=== PATIENT | male | born 1960 | race Caucasian/White ===

== ENCOUNTER 2017-07-04 10:17 | Emergency (ER) | payer BC ==
[~2017-07-04] VITALS: Ht 177.8 cm; Wt 100.1 kg
[~2017-07-04 10:17] MED LIST: TRAM-10 PO
[2017-07-04 10:31] VITALS: TEMP 36.8; Ht 177.8 cm; Wt 100.1 kg
[2017-07-04 10:50] VITALS: O2SAT 98
[2017-07-04] MEDS ORDERED: ONDANSETRON INJ 2 MG/ML 2 ML VIAL IV STA (10:57)
[2017-07-04] MEDS ORDERED: SODIUM CHLORIDE 0.9% 1000ML 1,000 ML IV STA (10:57)
[2017-07-04] MEDS ORDERED: MoRPHine SULFATE 4 MG/ML 1 ML CARP\\VIAL IV STA (10:57)
[2017-07-04 11:19] LABS: BASO % 0.3 %; BASO ABS # 0.02 K/uL (0-0.2); COMPLETE YES; EOS % 1.5 %; IG% 0.2 %; LYMPH % 14.9 %; LYMPH ABS # 0.87 K/uL (1.2-3.4); MEAN CELL VOLUME 92.1 fL (80-100); MEAN CORPUSCULAR HEMOGLOBIN 33.3 pg (25-34); MEAN CORPUSCULAR HGB CONC 36.2 g/dl (32-36); MEAN PLATELET VOLUME 9.4 fL (7.4-10.4); MONO % 7.6 %; NEUT % 75.5 %; PLATELET COUNT 196 K/uL (130-400); RED BLOOD COUNT 4.56 M/uL (4.7-6.1); WHITE BLOOD COUNT 5.82 K/uL (4.8-10.8)
[2017-07-04 11:34] LABS: BUN/CREATININE RATIO 9.4 (10-20); CREATININE 1.5 mg/dl (0.60-1.40); POTASSIUM 3.9 mmol/L (3.5-5.1)
[2017-07-04] MEDS ORDERED: NAPR1TAB9 PO (12:05)
[2017-07-04] MEDS ORDERED: IMD/2 PO (12:05)
[2017-07-04 12:08] LABS: URINE APPEARANCE CLOUDY (CLEAR); URINE BILIRUBIN NEG (NEG); URINE COLOR DK YELLOW; URINE EPITHELIAL CELL AUTO 0-5 /lpf (0-5); URINE NITRITE NEG (NEG); URINE SPECIFIC GRAVITY 1.032 (1.000-1.030); UROBILINOGEN NEG (NEG)
[2017-07-04 12:19] LABS: MANUAL MICROSCOPIC REQUIRED? NO; REVIEW REQ? NO
[2017-07-04] MEDS ORDERED: OPTIRAY 320 IV PRN (13:15)
[2017-07-04 16:10] VITALS: BP 126/76; PULSE 56; O2SAT 99
--- NOTE | 2017-07-04 16:29 | DIAGNOSTIC IMAGING REPORT ---
CT OF THE ABDOMEN AND PELVIS WITH CONTRAST CLINICAL HISTORY: Left lower quadrant abdominal pain. COMPARISON STUDY: None. TECHNIQUE: Following IV administration of 94 mL of Optiray-320, axial images of the abdomen and pelvis were obtained from the lung bases to the proximal femurs. Images were reviewed in the axial, sagittal, and coronal planes. IV contrast was administered without complication. A dose lowering technique was utilized adhering to the principles of ALARA. Oral contrast was administered. CT DOSE: 830.82 mGy.cm FINDINGS: A 5 mm distal left ureteral calculus results in minimal left ureteral dilatation without hydronephrosis. Left nephrogram is slightly delayed and there is minimal left perinephric and periureteral infiltration. There is probable fatty infiltration of the liver. 1 cm lateral segment hepatic cyst is noted. Multiple subcentimeter hepatic lesions are too small to characterize. These are likely benign. The spleen, adrenal glands and pancreas are unremarkable. Fat-containing ventral and umbilical hernias are noted. There is evidence for prior sigmoid resection. No bowel obstruction is present. There are is left colon diverticulosis without evidence for acute diverticulitis. The appendix is not visualized. There is no lymphadenopathy or suspicious osseous lesion. IMPRESSION: 1. 5 mm minimally obstructing distal left ureteral calculus. Minimal asymmetric left ureteral dilatation without hydronephrosis. Slightly delayed left nephrogram with mild left perinephric infiltration. 2. Status post sigmoid resection. No bowel obstruction. Left colon diverticulosis without evidence for acute diverticulitis. 3. Containing umbilical and ventral hernias. Electronically signed by: Jovi Timmons M.D. 07/04/2017 4:28 PM Dictated Date/Time: 07/04/2017 4:20 PM
[2017-07-04] MEDS ORDERED: HYDR-5688 PO (16:48)
[2017-07-04] MEDS ORDERED: TAMS0.4C38 PO (16:48)
--- NOTE | 2017-07-04 17:13 | EMERGENCY ROOM VISIT NOTE ---
History First contact with patient: 10:36 Chief Complaint: BACK PAIN Stated Complaint: BACK/SIDE INTERNAL LOWER History of Present Illness The patient is a 57 year old white male who presents to the Emergency Room with complaints of left flank pain radiating around to his left lower abdomen and groin. Symptoms started last night. He states he just did not feel well yesterday. He did not eat much. This morning he awoke with more severe discomfort. He states he did eat earlier today but vomited. No fevers or chills. He states he did have 2 episodes of diarrhea yesterday. No prior history of kidney stones. He denies any difficulty urinating. No hematuria. No urgency or burning. There is a history of previous diverticulitis and colon resection with temporary colostomy and reversal. He states this feels somewhat similar. He points to the left side of the abdomen and his left flank as the areas of discomfort. Previous appendectomy. No right-sided discomfort. His accompanies him today. Review of Systems REVIEW OF SYSTEM: HEENT: No dizziness, visual problems, hearing loss, or tinnitus. There is no difficulty swallowing and no oral lesions are present. PULMONARY: No cough, shortness of breath, sputum production or hemoptysis. CARDIOVASCULAR: No chest pain, palpitations, shortness of breath or peripheral edema. GASTROINTESTINAL: No constipation. Positive diarrhea, nausea, vomiting, and abdominal pain. GENITOURINARY: No dysuria, frequency, urgency or nocturia. NEUROLOGIC: No weakness, muscle tenderness, epilepsy or history of neurological problems. MUSCULOSKELETAL: No history of joint tenderness/swelling. No history of arthritis or arthralgias. SKIN: No rashes or lesions. PSYCHIATRIC: No history of depression or mental illness. ENDOCRINE: No history of diabetes, thyroid disorders, or abnormal hair growth. Past Medical/Surgical History Previous surgeries: Appendectomy, bowel resection, colostomy reversal Medical history: Significant for previous diverticulitis Family History Noncontributory. Social History Smoking Status: Never Smoker Smokeless Tobacco Use: No Drug Use: none Marital Status: Housing Status: lives with family Occupation Status: employed Current/Historical Medications Scheduled Tamsulosin Hcl (Flomax), 1 CAP PO DAILY Scheduled PRN Hydrocodone/Acetaminophen 5MG/325MG (Cascade 5MG/325MG), 1-2 TABLET PO Q6H PRN for Pain Loperamide Hcl (Imodium), 2-4 MG PO UD PRN for GI Upset Naproxen (Aleve), 220-440 MG PO UD PRN for Pain Physical Exam Vital Signs Date Time Temp Pulse Resp B/P (MAP) Pulse Ox O2 Delivery O2 Flow Rate FiO2 07/04/17 16:10 56 20 126/76 99 Room Air 07/04/17 13:35 62 18 118/75 98 Room Air 07/04/17 11:19 57 18 132/91 98 Room Air 07/04/17 10:51 54 07/04/17 10:50 98 Room Air 07/04/17 10:31 36.8 56 18 132/85 99 Room Air Physical Exam Gen.: Well-developed, well-nourished, middle-aged white male, in obvious discomfort. No acute distress. Laying on a bed. Alert and oriented. Skin:Warm and dry with good turgor. No rashes or lesions. No ecchymosis or erythema. The patient is not diaphoretic. No abrasions. HEENT: Normocephalic atraumatic. Eyes PERRLA, EOMI. No conjunctiva or scleral injection. Oropharynx without erythema or exudate. oral mucosa moist. No lesions present. Heart: Heart RRR. No MGR. Peripheral pulses are 2+. Lungs: Lungs are clear to auscultation. No crackles rhonchi or wheezing. Good air movement. The patient is able to take a deep breath. Abdomen: Abdomen was inspected, auscultated, and palpated. Bowel sounds present x 4. Soft, left lower quadrant pain to palpation. No hepato- splenomegaly. No masses noted. No rebound. No pain over McBurney's point. Left-sided CVA tenderness. Musculoskeletal: Gross motor function of the upper and lower extremities is intact and unremarkable. Neurologic: Gross sensation is intact across the upper and lower extremities by soft touch. Medical Decision & Procedures ER Provider Diagnostic Interpretation: CT scan imaging of the abdomen and pelvis with IV and oral contrast was obtained. This was read by radiology as negative for diverticulitis. Positive for diverticulosis. No perforation. There is a 5.3 mm ureteral stone on the left side. Mild hydronephrosis. Laboratory Results 07/04/17 10:45 Red Blood Count 4.56, Mean Corpuscular Volume 92.1, Mean Corpuscular Hemoglobin 33.3, Mean Corpuscular Hemoglobin Concent 36.2, Mean Platelet Volume 9.4, Neutrophils (%) (Auto) 75.5, Lymphocytes (%) (Auto) 14.9, Monocytes (%) (Auto) 7.6, Eosinophils (%) (Auto) 1.5, Basophils (%) (Auto) 0.3, Neutrophils # (Auto) 4.39, Lymphocytes # (Auto) 0.87, Monocytes # (Auto) 0.44, Eosinophils # (Auto) 0.09, Basophils # (Auto) 0.02 07/04/17 10:45 Test 07/04/17 10:45 07/04/17 11:55 White Blood Count 5.82 K/uL (4.8-10.8) Red Blood Count 4.56 M/uL (4.7-6.1) Hemoglobin 15.2 g/dL (14.0-18.0) Hematocrit 42.0 % (42-52) Mean Corpuscular Volume 92.1 fL (80-100) Mean Corpuscular Hemoglobin 33.3 pg (25-34) Mean Corpuscular Hemoglobin Concent 36.2 g/dl (32-36) Platelet Count 196 K/uL (130-400) Mean Platelet Volume 9.4 fL (7.4-10.4) Neutrophils (%) (Auto) 75.5 % Lymphocytes (%) (Auto) 14.9 % Monocytes (%) (Auto) 7.6 % Eosinophils (%) (Auto) 1.5 % Basophils (%) (Auto) 0.3 % Neutrophils # (Auto) 4.39 K/uL (1.4-6.5) Lymphocytes # (Auto) 0.87 K/uL (1.2-3.4) Monocytes # (Auto) 0.44 K/uL (0.11-0.59) Eosinophils # (Auto) 0.09 K/uL (0-0.5) Basophils # (Auto) 0.02 K/uL (0-0.2) RDW Standard Deviation 44.0 fL (36.4-46.3) RDW Coefficient of Variation 13.2 % (11.5-14.5) Immature Granulocyte % (Auto) 0.2 % Immature Granulocyte # (Auto) 0.01 K/uL (0.00-0.02) Anion Gap 5.0 mmol/L (3-11) Est Creatinine Clear Calc Drug Dose 64.4 ml/min Estimated GFR () 59.0 Estimated GFR (Non- 50.9 BUN/Creatinine Ratio 9.4 (10-20) Calcium Level 9.0 mg/dl (8.5-10.1) Total Bilirubin 0.9 mg/dl (0.2-1) Aspartate Amino Transf (AST/SGOT) 19 U/L (15-37) Alanine Aminotransferase (ALT/SGPT) 31 U/L (12-78) Alkaline Phosphatase 76 U/L (45-117) Total Protein 7.4 gm/dl (6.4-8.2) Albumin 3.7 gm/dl (3.4-5.0) Globulin 3.7 gm/dl (2.5-4.0) Albumin/Globulin Ratio 1.0 (0.9-2) Urine Color DK YELLOW Urine Appearance CLOUDY (CLEAR) Urine pH 5.0 (4.5-7.5) Urine Specific [place] 1.032 (1.000-1.030) Urine Protein TRACE (NEG) Urine Glucose (UA) NEG (NEG) Urine Ketones 1+ (NEG) Urine Occult Blood NEG (NEG) Urine Nitrite NEG (NEG) Urine Bilirubin NEG (NEG) Urine Urobilinogen NEG (NEG) Urine Leukocyte Esterase NEG (NEG) Urine WBC (Auto) 1-5 /hpf (0-5) Urine RBC (Auto) 0-4 /hpf (0-4) Urine Hyaline Casts (Auto) 1-5 /lpf (0-5) Urine Epithelial Cells (Auto) 0-5 /lpf (0-5) Urine Bacteria (Auto) NEG (NEG) CBC, chem panel, and UA were obtained. UA is negative for blood and bacteria. 1+ ketones. CBC is unremarkable. Chem panel is also unremarkable. Medications Administered Medications (Trade) Dose Ordered Sig/Jovanny Route Start Time Stop Time Status Last Admin Dose Admin Sodium Chloride 1,000 ml @ 999 mls/hr Q1H1M STAT IV 07/04/17 10:57 07/04/17 11:57 DC 07/04/17 11:03 999 MLS/HR Morphine Sulfate (MoRPHine SULFATE INJ) 4 mg NOW STAT IV 07/04/17 10:57 8/19/17 10:59 DC 07/04/17 11:18 4 MG Ondansetron HCl (Zofran Inj) 4 mg NOW STAT IV 07/04/17 10:57 07/04/17 10:59 DC 07/04/17 11:17 4 MG 1 L normal sterile saline IV bolus, morphine 4 mg IV, Zofran 4 mg IV ED Course Patient was educated regarding today's findings. Conservative care measures were discussed. IV was established. Labs were obtained. UA was also obtained. Because there was no blood in the urine and his history of diverticulitis, CT of the abdomen and pelvis with IV and oral contrast was obtained. This was read by radiology. Ureteral stone was noted. No evidence for diverticulitis or perforation. He was given morphine 4 mg IV and Zofran 4 mg IV with improvement of his nausea and pain. He remained comfortable while in the ED. He was discharged on Flomax 0.4 mg daily 7 days or until he passes his stone. He was also given a prescription for Cascade 5 mg to be used for severe pain. He may use Tylenol and Motrin every 6 hours for mild discomfort. Maintain hydration. Strain the urine if desired. Follow up with his PCP or urologist if symptoms persist. Return to the ED for any acute worsening of symptoms or inability to void. Kidney stone handout was provided. Medical Decision Possibility of appendicitis, diverticulitis, bowel perforation, ureteral stone, UTI, bowel obstruction, and abdominal strain were considered among others. Medication Reconcilliation Current Medication List: was personally reviewed by [facility] Blood Pressure Screening Patient's blood pressure: Normal blood pressure Impression Primary Impression: Ureterolithiasis Additional Impression: Renal colic Departure Information Dispostion Home / Self-Care Prescriptions Hydrocodone/Acetaminophen 5MG/325MG (Cascade 5MG/325MG) Tab 1-2 TABLET PO Q6H Y for Pain, #15 TAB For Initial Treatment Prov: Watson Salazar,P.A. 07/04/17 Tamsulosin Hcl (FLOMAX) 0.4 Mg Cap 1 CAP PO DAILY for 7 Days, #7 CAP Prov: Watson Salazar,P.A. 07/04/17 Referrals Corwin Vazquez M.D. Forms HOME CARE DOCUMENTATION FORM, Kidney stone size in mm: 5 SPECIAL NARCOTICS INSTRUCTIONS, MOTRIN USE, RENAL COLIC (KIDNEY STONES), TYLENOL USE, IMPORTANT VISIT INFORMATION Patient Instructions Kidney Stones - [facility], [facility] Additional Instructions Flomax 1 daily 7 days or until you pass the stone Cascade one to 2 tablets every 6 hours as needed for severe pain-no driving Tylenol and Motrin every 6 hours as needed for mild discomfort Return to the ED for any acute worsening of symptoms or inability to void Follow-up with your PCP or urologist as needed Problem Qualifiers
== END 2017-07-04 16:59 | disposition home or self-care (01) ==
LOC: C.EDB 10:19 → C.EDA 16:59
DX: N20.1 Calculus of ureter (principal); N23 Unspecified renal colic

== ENCOUNTER 2023-02-09 05:17 | Observation (INO) ==
--- NOTE | 2023-01-16 10:13 | PAT Medication Instructions ---
Medication Instructions Date of Service January 16, 2023 Home Medications Medication Instructions Recorded celecoxib 100 mg capsule (Celebrex) 100 mg PO BID PRN pain #60 caps 12/01/22 zolpidem 5 mg tablet 5 mg PO HS PRN celecoxib 100 mg capsule (Celebrex) 100 mg PO BID PRN ibuprofen 200 mg tablet 400 - 600 mg PO Q6H PRN naproxen sodium 220 mg tablet 220 mg PO BID PRN ASK your surgeon for instructions celecoxib 100 mg capsule (Celebrex) 100 mg PO BID PRN ibuprofen 200 mg tablet 400 - 600 mg PO Q6H PRN naproxen sodium 220 mg tablet 220 mg PO BID PRN Take evening before surgery zolpidem 5 mg tablet 5 mg PO HS PRN(if needed) Other Notes NOTHING TO EAT OR DRINK AFTER MIDNIGHT. If you have any questions please call us at [phone] or [phone] or [phone] or [phone]
--- NOTE | 2023-01-22 14:13 | Anesthesiology Consultation ---
Date of Service January 22, 2023 Assessment & Plan (1) Encounter for pre-operative examination: - COVID screening: Per assessment on 01/22: No known COVID-19 positive contacts or current COVID-19 related symptoms. Travel screen negative. Patient vaccinated. At surgeon discretion if preop Covid testing being done. - Outpatient joint assessment: Pt currently scheduled for inpatient pathway. If surgeon requests review for outpatient joint pathway, patient is an acceptable candidate for outpatient joint program from anesthesia standpoint pending surgeon's office assessment that patient is motivated, has good support and completes Same Day Joint Program preop requirements. Chart Review Chart Review: Acceptable Risk for Surgery and Patient seen in Pre Admission Testing Teaching & Discussion Pre-Anesthesia Teaching/Discussion Notes: Instructed NPO after midnight before surgery,except medications with 15 cc of water. Medication instructions provided according to the PAT guidelines. History Surgery Operation Date: 02/09/23 12:30 Proposed Procedures p Left Unicompartmental Vs - Star Navarro MD s Total Knee Arthroplasty - Star Navarro MD Height/Weight Height: 5 ft 10 in Weight: 112.9 kg Allergies Allergy/AdvReac Type Severity Reaction Status Date / Time pollen extracts Allergy Mild sneezing, Verified 01/19/23 11:52 watery eyes amoxicillin AdvReac Mild GI upset Verified 01/19/23 11:52 Dust Allergy Mild sneezing, Uncoded 01/19/23 11:52 watery eyes Medications Home Medications Medication Instructions Recorded Confirmed Last Taken zolpidem 5 mg tablet 5 mg PO HS PRN Sleep 04/17/21 01/16/23 Unknown celecoxib 100 mg capsule (Celebrex) 100 mg PO BID PRN pain #60 caps 12/01/22 01/16/23 Unknown ibuprofen 200 mg tablet 400 - 600 mg PO Q6H PRN Pain 01/16/23 01/16/23 Unknown naproxen sodium 220 mg tablet 220 mg PO BID PRN Pain 01/16/23 01/16/23 Unknown Past Medical History Medical History Diverticulitis 2003 History of COVID-19 2019- mild symptoms, resolved Kidney stones Hx Obesity Osteoarthritis Sleep apnea CPAP (compliant) Exercise / Class Metabolic Activity II 4-5 Yardwork/Stairs/Walk up hill (one FS (no CP, no SOB)) Past Family History Family History Other No family history of adverse response to anesthesia Past Surgical History Surgical History History of appendectomy History of carpal tunnel release of both wrists History of colonoscopy History of colostomy 2003- subsequent reversal History of colostomy reversal History of resection of large bowel 2003 History of sinus surgery History of tooth extraction Past Anesthesia History No Hx of Anesthesia Complications and No Family Hx of Anesthesia Complications History of PONV No Hx of PONV and Hx of Motion Sickness Social History Smoking Status: Former smoker Do You Dip or Chew Tobacco: No Smoking End Date: Quit 07/19/2004 Hx Alcohol Use: Yes Alcohol type: beer alcohol intake frequency: 3 or more drinks per day (2-3 beers/day) Hx Substance Use: No substance use type: does not use Review of Systems Patient denies chest pain, shortness of breath, dyspnea on exertion, fever, chills, cough, wheezing, palpitations. Physical Exam Vital Signs VITALS BP 127/73 P 85 TEMP 98.1 SP02 96%RA RESP 16 PHYSICAL Full cervical extension range of motion. Full TMJ range of motion. TMD 4 finger breaths Mallampati Score 4 (small oral opening) Dentition: several missing (sides/molars), upcoming dental extractions (for infection/broken) prior to surgery- patient advised to make surgeon aware* Lungs: clear throughout to auscultation Cardiac: regular rate and rhythm, no murmurs noted Spine: normal Carotid arteries: negative bruit Extremities: no edema Lab Results Anesthesia Preop Results Results Anesthesia Widget: WBC 6.08 K/ul (4.8-10.8) 01/22/23 Hgb 14.3 g/dl (14.0-18.0) 01/22/23 Hct 40.3 % (42.0-52.0) L 01/22/23 Plt 226 K/uL (130-400) 01/22/23 Na 141 mmol/L (136-145) 01/22/23 K 4.3 mmol/L (3.5-5.1) 01/22/23 Cl 110 mmol/L (98-107) H 01/22/23 CO2 27 mmol/L (21-32) 01/22/23 BUN 14 mg/dl (6-23) 01/22/23 Creat 1.16 mg/dl (0.6-1.4) 01/22/23 Glucose Level 99 mg/dl (70-99(Fasting)) 01/22/23 PT 10.4 Seconds (9.0-12.0) 01/22/23 PTT 24.7 Seconds (21.0-31.0) 01/22/23 INR 1.0 (0.9-1.1) 01/22/23 Blood Type O Negative 01/22/23 Antibody Screen NEGATIVE 01/22/23 Testing Electrocardiogram Date: 01/22/23 NSR at 83bpm. LAFB. Chest X-Ray Date: 01/22/23 FINDINGS: Cardiomediastinal and hilar silhouettes are within normal limits. Mild hyperinflation with diaphragmatic flattening. No pneumothorax, pleural effusion, airspace consolidation or pulmonary edema. Bones appear grossly intact. IMPRESSION: No acute process. COVID-19 Risk Screen Screening Information COVID-19 Screen Date: 01/22/23 Exposure 21 Days Family/Household +COVID Last 21 Days: No Exposure 10 Days Any COVID Exposure Last 10 Days: No Symptoms Last 10 Days Experienced COVID Sx Last 10 Days: No + COVID 0-90 Days COVID + in Last 0-90 Days: No
[2023-02-09] MEDS ORDERED: TRANEXAMIC ACID 1,000 MG **IV Intra-op IV SCH (06:00)
[2023-02-09] MEDS ORDERED: LR 500ML BOLUS, THEN 15ML/HR IV SCH (06:00)
[2023-02-09] MEDS ORDERED: BUPIVACAINE LIPOSOME/PF 266 MG, BUPIVACAINE/EPINEPHRINE 50 ML, SODIUM CHLORIDE 0.9% PF ... INFIL SCH (06:00)
[2023-02-09] MEDS ORDERED: FAMOTIDINE 20 MG TAB PO SCH (06:00)
[2023-02-09] MEDS ORDERED: METOCLOPRAMIDE HCL 10 MG TABLET PO SCH (06:00)
[2023-02-09] MEDS ORDERED: Scopolamine 1 MG TDSY TD SCH (06:00)
[2023-02-09] MEDS ORDERED: ACETAMINOPHEN 500 MG TAB PO SCH (06:00)
[2023-02-09] MEDS ORDERED: CeleBREX 200 MG CAP PO SCH (06:00)
[2023-02-09] MEDS ORDERED: ceFAZolin 2000MG 2,000 MG/15 ML SYR IV SCH (06:00)
[2023-02-09] MEDS ORDERED: LR 60ML/HR IV SCH (06:00)
[2023-02-09] MEDS ORDERED: BUPIVACAINE 0.5 % 5 MG/1 ML PF 10ML VIAL ONE (06:26)
[2023-02-09] MEDS ORDERED: EPINEPHrine INJ 1 MG/ML AMP ONE (06:26)
[2023-02-09] MEDS ORDERED: ROPIVACAINE 0.5% 5 MG/ML 30 ML VIAL ONE (06:26)
[2023-02-09] MEDS ORDERED: MIDAZOLAM HCL 1 MG/ML 2ML VIAL ONE ×2 (06:30→07:13)
[2023-02-09] MEDS ORDERED: fentaNYL citrate PF 100 MCG/2 ML VIAL ONE (06:30)
[2023-02-09] MEDS ORDERED: BUPIVACAINE/EPINEPHRINE 0.25% 1:200,000 30 ML VIAL ONE (06:44)
[2023-02-09] MEDS ORDERED: SODIUM CHLORIDE 0.9% PF 50 ML VIAL ONE (06:44)
[2023-02-09] MEDS ORDERED: BUPIVACAINE LIPOSOME 1.3% 266 MG/20 ML VIAL ONE (06:44)
--- NOTE | 2023-02-09 06:51 | History & Physical Bridge Note ---
Date of Service February 09, 2023 History & Physical Bridge Note I have examined the patient, reviewed the History & Physical and in the interval since the performance of the History & Physical I have noted the following changes of clinical significance: no changes noted
[2023-02-09] MEDS ORDERED: PROPOFOL IV EMULSION 10 MG/ML 20 ML VIAL IV ONE (07:13)
[2023-02-09] MEDS ORDERED: PHENYLEPHRINE HCL 10 MG/ML VIAL ONE (07:14)
[2023-02-09] MEDS ORDERED: ePHEDrine sulfate 50 MG/ML AMP ONE (07:14)
[2023-02-09] MEDS ORDERED: fentaNYL citrate PF 100 MCG/2 ML VIAL IV PRN (08:14)
[2023-02-09] MEDS ORDERED: NALOXONE HCL 0.4 MG/1 ML VIAL/CARP IV PRN ×2 (08:14→09:59)
[2023-02-09] MEDS ORDERED: HYDROmorphone INJ 1 MG/ML SYRINGE IV PRN (08:14)
[2023-02-09] MEDS ORDERED: ATROPINE SULFATE 0.1 MG/ML 10ML SYR IV PRN (08:14)
[2023-02-09] MEDS ORDERED: ONDANSETRON INJ 2 MG/ML 2 ML VIAL IV PRN ×2 (08:14→09:59)
[2023-02-09] MEDS ORDERED: ePHEDrine sulfate 50 MG/ML AMP IV PRN (08:14)
[2023-02-09] MEDS ORDERED: FLUMAZENIL 0.1 MG/1 ML 10 ML VIAL IV PRN (08:14)
[2023-02-09] MEDS ORDERED: PROMETHAZINE HCL 12.5 MG in SODIUM CHLORIDE 0.9% 50 ML IV PRN (08:14)
[2023-02-09] MEDS ORDERED: DEXAMETHASONE SOD INJ 4 MG/ML VIAL ONE (08:39)
[2023-02-09] MEDS ORDERED: KETOROLAC 30 MG/ML VIAL ONE (08:39)
--- NOTE | 2023-02-09 09:02 | Operative Report ---
PG Post Operative Report Pre & Post Diagnosis Operation Date: 02/09/23 07:00 Pre-Op Diagnosis: Left Knee medial compartment DJD Post-Op Diagnosis: Left Knee medial compartment DJD I identified the patient and participated in the time-out.: Yes Procedure Operation Date: 02/09/23 07:00 Actual Procedures p Left Unicompartmental Knee Arthroplasty(Left) - Star Navarro MD Surgeon Star Navarro MD Improvement Specialist Bryan Costa PA-C Estimated Blood Loss 25 Findings Consistent with Post-Op Diagnosis Operative findings were advanced left medial compartment DJD. He had full- thickness cartilage loss of both the medial femoral condyle and medial tibial plateau. The lateral compartment and patellofemoral carpal compartment looked quite pristine. He had a very large knee joint effusion. Specimens Left knee sent for pathology Anesthesia Type Spinal MAC Complications none Disposition Accompanied Patient To Recovery: No Indications Patient is 63-year-old fairly active gentleman has had about a year history of increasing left knee pain discomfort and recurrent swelling is got markedly worse over the past year. X-rays show progressive loss of his medial joint space. MRI showed fairly isolated medial compartment arthritis with a bone marrow edema in the medial femoral condyle medial tibial plateau with a degenerative medial meniscus tear. Patient failed all conservative measures. He elected proceed with left partial knee replacement. Description of Procedure Operative implants consist of: 1. Biomet [place] medium medial femoral component. 2. Biomet [place] left medial size C tibial tray. 3. 4 mm mobile-bearing polyethylene insert. The patient was taken the operating, identified, placed on the operating table supine position protectors were properly padded. IV antibiotics tried by anesthesia team. A spinal anesthetic and abductor canal block had provided in the holding area. Mishra catheter was placed in sterile fashion. Left atrium was then placed in the left lower extremities and prepped and draped in usual sterile fashion. The left leg was elevated exsanguinated with use of an Esmarch nd the tourniquet was placed at 300 mmHg. An anterior approach left knee was then performed to longitudinal incision extending from the superior medial pole of the patella to just medial to the tibial tubercle. Sharp dissection was carried through subcutaneous tissue down the extensor mechanism. A medial parapatellar arthrotomy incision was made. The fat pad was resected. Some slight subperiosteal dissection was carried out medially taking great care to protect the MCL. I then examined the knee. The ACL was intact. There is extensive disease of the medial compartment. The lateral and patellofemoral compartments look quite pristine. We elected proceed with a left partial knee replacement. The distal femur was sized to a size medium femoral component. The medium spoon was placed in the external tibial alignment jig was then placed in the interface the tibia and attached to the medium splint with a 4G clamp. Guide was pinned in place. The proximal tibial cut was made. The tibia sized to a size C. Attention drawn the femur. The distal femur examined the sharp drill. Intramedullary guide was placed. A medium femoral component was placed and attached to the intramedullary evy. Holes were drilled for the femoral component. The posterior cutting guide was placed and the posterior cut was made. The 0 spigot was used milled the distal femur and distal femur was milled. I then resected the medial meniscus. We then trialed the knee and the 4 feeler gauge fit appropriately in flexion and the 2 in extension. Therefore we used 2 spigot and milled the distal femur further. We trialed the knee and it was well balanced in flexion extension with a 4 insert. We elect to place these implants. The posterior osteophyte cutting guide was placed and the posterior osteophyte was removed. The anterior milling device was used to milled the anterior femur for the femoral component. The tibial tray was pinned in place. The toothbrush blade was used to create the keel for the tibial tray. The inserts were then trialed again and the 4 mobile-bearing trial left fit appropriately. We elect to use these implants. All trial implants were removed. I irrigated the wound extensively. We did inject locally with total of 100 cc of combination of 20 cc of Exparel, 30 cc normal saline, 50 cc of quarter percent Marcaine with epinephrine. Patient did receive 1 g tranexamic acid. Double batch of [place] G cement was mixed. A size left medial size C tibial tray was cemented in place followed by a medium femoral component. All extraneous cement was removed. The knee was brought out into 30 degrees of full extension with the a [address] Once the cement hardened a final cement check was then performed we trialed the knee 1 more time and the 4 insert fit appropriately. A permanent 4 insert was placed. We then irrigated the wound extensively. The tourniquet was let down for total tourniquet time was 63 minutes. Hemostasis assured with electrocautery. Extensor mechanism then closed with #1 Vicryl suture in a [id number] fashion. Extension excellent check found be intact the subcutaneous tissue then closed with 2 Dexon suture in a buried interrupted fashion skin was closed skin librado. Leg was then cleaned and dried a sterile dressing with Xeroform, 4 x 4's, sterile ABD pad, sterile cast padding, Bib bandage were applied. Patient then transferred to the recovery room in stable condition. Patient tolerated the procedure well and there were no complications. Bryan Costa, my physician assistant field hockey coach, was present for the entire procedure. His assistance was essential and required for appropriate patient positioning, prepping and draping, surgical exposure, performing the technical details of the operation, placement the implants, closure of the wound, and placement of the sterile bandage. I attest to the content of the Intraoperative Record and any orders documented therein. Any exceptions are noted below.
--- NOTE | 2023-02-09 09:24 | Anesthesiology Progress Note ---
Date of Service February 09, 2023 Anesthesia Post Procedure Vital Signs Vital Signs: Temp Pulse Pulse Resp BP Pulse Ox O2 Del Method 02/09/23 09:10 68 16 128/67 98 Room Air 02/09/23 09:00 67 14 115/66 99 Room Air 02/09/23 08:54 36 C L 73 14 119/61 98 Room Air 02/09/23 05:35 36.5 C 86 20 155/76 H 97 Room Air Transfer of Care Handoff Completed per policy Notes Mental Status: alert / awake / arousable Patient Amnestic to Procedure: Yes Nausea / Vomiting: adequately controlled Pain: adequately controlled Airway Patency, RR, SpO2: stable & adequate BP & HR: stable & adequate Hydration State: stable & adequate Neuraxial Anesthesia: was administered and sensory block is resolving Anesthetic Complications: no major complications apparent
--- NOTE | 2023-02-09 09:35 | XRay Report ---
TWO VIEWS LEFT KNEE CLINICAL HISTORY: Postoperative examination. FINDINGS: AP and crosstable lateral portable views of the left knee are obtained. A hemiarthroplasty in the medial compartment of the left knee is in near anatomic alignment. No acute fracture is seen. There are expected postoperative changes around the knee including skin clips, soft tissue edema, an d subcutaneous gas. IMPRESSION: Expected postoperative changes status post hemiarthroplasty of the left knee. No acute fr acture is seen. ACT 112: Negative or not required by law. Electronically signed by: Fazal Hernandez M.D. 02/09/2023 9:34 AM
[2023-02-09] MEDS ORDERED: METOCLOPRAMIDE HCL INJ 5 MG/ML 2 ML VIAL IV PRN (09:59)
[2023-02-09] MEDS ORDERED: HYDROmorphone INJ 0.5 MG/0.5 ML SYR IV PRN (09:59)
[2023-02-09] MEDS ORDERED: ALUMINUM/MAGNESIUM SUSP 30 ML UDC PO PRN (09:59)
[2023-02-09] MEDS ORDERED: diphenhydrAMINE Capsule 25 MG CAP PO PRN (09:59)
[2023-02-09] MEDS ORDERED: ZOLPIDEM TARTRATE 5 MG TAB PO PRN (09:59)
[2023-02-09] MEDS ORDERED: bisacodyL 10 MG SUPP PR PRN (09:59)
[2023-02-09] MEDS ORDERED: MAGNESIUM HYDROXIDE SUSP 30 ML UDC PO PRN (09:59)
[2023-02-09] MEDS: SODIUM CHLORIDE 0.9% 1000ML 1,000 ML IV SCH ×2 (10:37→22:28)
[2023-02-09] MEDS: DOCUSATE SODIUM 100 MG CAP PO SCH ×2 (10:52→21:27)
[2023-02-09] MEDS: ASPIRIN 81 MG ECTAB PO SCH ×2 (10:52→21:27)
[2023-02-09] MEDS: MULTIVITAMIN TAB PO SCH (10:53)
[2023-02-09] MEDS: TAMSULOSIN HCL 0.4 MG CAP PO SCH (10:53)
[2023-02-09] MEDS: DOCUSATE SODIUM/SENNA 50/8.6MG TAB PO SCH ×2 (10:53→21:29)
[2023-02-09] MEDS: KETOROLAC 30 MG/ML VIAL IV SCH ×3 (10:53→21:26)
[2023-02-09] MEDS: ACETAMINOPHEN 500 MG TAB PO SCH ×2 (13:15→21:28)
--- NOTE | 2023-02-09 14:11 | Progress Notes ---
DATE OF SERVICE: 02/09/2023. SUBJECTIVE: A 63-year-old gentleman postoperative from a left partial knee replacement. He is doing well. Not really having much pain at all yet. No chest pain or shortness of breath. Not feeling d nubia or lightheaded. OBJECTIVE: VITAL SIGNS: Temperature 36.6. Vital signs are stable. GENERAL: Shows a pleasant middle-aged male. He is sitting up in bed and looks quite comfortable. LUNGS: Clear to auscultation. HEART: Regular rate and rhythm. ABDOMEN: Soft, nontender, nondistended. EXTREMITIES: Grossly neurovascularly intact except as follows. Examination of the left leg reveals the dressing to be clean, dry and intact. Leg is well aligned. He can dorsiflex and plantarflex his foot appropriately. He is neurologically intact. X-RAYS: X-rays of the left knee from recovery room were reviewed. It shows a left partial knee repl acement. Components looked to be in good position. No signs of problems. ASSESSMENT: A 63-year-old gentleman postoperative from a left partial knee replacement, doing well. Pain controlled. He is neurologically intact. PLAN: 1. DVT prophylaxis includes thigh-high TEDs, SCDs, and aspirin twice a day. 2. PT/OT, weight bear as tolerated. Left total knee protocol. 3. Pain control, doing okay with current pain regimen. 4. IV antibiotics x24 hours. 5. Disposition: Plan to discharge to home with some home health once adequately recovered and medic ally stable. Job ID: [id number]
[2023-02-09] MEDS: ceFAZolin 2000MG 2,000 MG/15 ML SYR IV SCH ×2 (14:56→23:01)
[2023-02-09] MEDS ORDERED: TRANEXAMIC ACID / 0.7% NACL 1,000 MG/100 ML BAG IV SCH (15:00)
[2023-02-09] MEDS: Scopolamine CHECK PATCH PLACEMENT SCH (15:32)
[2023-02-09] MEDS: oxyCODONE HCL IR 5 MG TAB (IMMEDIATE RELEASE) PO PRN (19:39)
[2023-02-09] MEDS ORDERED: SENNA 8.6 MG TAB PO SCH (21:00)
[2023-02-10] MEDS: Scopolamine CHECK PATCH PLACEMENT SCH ×2 (01:12→08:04)
[2023-02-10] MEDS: KETOROLAC 30 MG/ML VIAL IV SCH ×2 (05:17→12:02)
[2023-02-10] MEDS: ACETAMINOPHEN 500 MG TAB PO SCH ×2 (05:17→13:23)
[2023-02-10] MEDS: SODIUM CHLORIDE 0.9% 1000ML 1,000 ML IV SCH (06:04)
[2023-02-10] MEDS: MULTIVITAMIN TAB PO SCH (08:03)
[2023-02-10] MEDS: ASPIRIN 81 MG ECTAB PO SCH (08:04)
[2023-02-10] MEDS: DOCUSATE SODIUM 100 MG CAP PO SCH (08:04)
[2023-02-10] MEDS: TAMSULOSIN HCL 0.4 MG CAP PO SCH (08:04)
[2023-02-10] MEDS: DOCUSATE SODIUM/SENNA 50/8.6MG TAB PO SCH (08:04)
[2023-02-10] MEDS: oxyCODONE HCL IR 5 MG TAB (IMMEDIATE RELEASE) PO PRN ×2 (08:08→14:12)
--- NOTE | 2023-02-10 14:56 | Progress Notes ---
DATE OF SERVICE: 02/10/2023 SUBJECTIVE: A 63-year-old gentleman postoperative day 1 from a left partial knee replacement. He is doing pretty well. Pain is very manageable. No chest pain or shortness of breath. Not feeling diz zy or lightheaded. Therapy went well. He is hoping to go home. OBJECTIVE: VITAL SIGNS: Temperature is 37.1. Vital signs are stable. PHYSICAL EXAMINATION: GENERAL: Physical examination shows a pleasant middle-aged male. He is sitting up in bed eating rachael ch and talking to his and looks comfortable. EXTREMITIES: Examination of the left leg reveals the dressing to be clean, dry, and intact. He can dorsiflex and plantarflex his foot appropriately. He can do a straight leg raise. LABORATORY DATA: None. ASSESSMENT: A 63-year-old gentleman postoperative day 1 from a left partial knee replacement, doing well. His pain is controlled. Therapy went well. He is hoping to go home. PLAN: 1. DVT prophylaxis to include thigh-high TEDs, SCDs, and aspirin twice a day. 2. PT, OT, and weightbear as tolerated. Left total knee protocol. 3. Pain control, doing okay with current pain regimen. 4. Disposition: Plan to discharge him home with some home health today. Job ID: [id number]
--- NOTE | 2023-02-13 07:40 | Discharge Summary ---
Date of Service February 13, 2023 Discharge Data Procedures Performed Operation Date: 02/09/23 07:00 Actual Procedures p Left Unicompartmental Knee Arthroplasty(Left) - Star Navarro MD Hospital Course (1) Status post left partial knee replacement: This is a 63 year old patient admitted on 02/09/23 and underwent partial knee replacement. He tolerated the procedure well and there were no complications. Transferred to the PACU post op and later to the orthopedic floor for further care. He was given ancef for antibiotic prophylaxis. He was also given LOIS stockings, SCDs, and aspirin for DVT prophylaxis. Hemoglobin, hematocrit, and vital signs were monitored during his hospital stay and remained stable. Did not require any blood transfusions. There were no complications during his hospital stay. By post op day #1 the patient was tolerating a regular diet, pain was reasonably controlled with oral pain medicine, and he was participating in physical therapy. On post op day #1 the patient was discharged home and set up with home health care. He was given printed discharge instructions including prescriptions for extra strength tylenol, aspirin, ketorolac, zofran, senokot, flomax, and oxycodone. Continue physical therapy, weight bearing as tolerated. Continue LOIS stockings. Follow up approximately 2 weeks post op or sooner if there are problems or concerns. Coding Level of Care Code None Diagnoses Status post left partial knee replacement Z96.652
== END 2023-02-10 14:47 | disposition home health service (06) ==
LOC: 3E 05:17 → ASU 05:17

== ENCOUNTER 2024-02-02 08:49 | Observation (INO) ==
--- NOTE | 2023-12-31 13:16 | PAT Medication Instructions ---
Medication Instructions Date of Service December 31, 2023 Home Medications zolpidem 5 mg tablet 5 mg PO HS PRN Sleep ibuprofen 200 mg tablet 400 mg PO DAILY PRN Pain ASK your surgeon for instructions ibuprofen 200 mg tablet 400 mg PO DAILY PRN Pain Take evening before surgery zolpidem 5 mg tablet 5 mg PO HS PRN Sleep (if needed) OTHERWISE NOTHING TO EAT OR DRINK AFTER MIDNIGHT Other Notes If you have any questions please call us at [phone] or [phone] or [phone] or [phone]
--- NOTE | 2024-01-08 10:44 | Anesthesiology Consultation ---
Date of Service January 08, 2024 Assessment & Plan (1) Encounter for pre-operative examination: - abnormal CXR: "Questionable 1 cm nodular density within the right upper lobe. This is likely due to the overlapping rib. However, follow-up chest CT recommended for confirmation." Continuity of care document and PAT testing faxed to [facility] PCP. Message left requesting return call for patient 01/08/24. I spoke with patient 01/11/24 who verbalized understanding of above and states he will follow-up with PCP-denied questions or concerns. Surgeon's office made aware. - Outpatient joint assessment: Patient is currently scheduled for inpatient pathway. If re-evaluated and patient/surgeon requests outpatient pathway, patient is acceptable candidate for outpatient joint program from anesthesia standpoint pending surgeon's office assessment of pt motivation/supp ort/completion of same day joint program preop requirements. Chart Review Chart Review: Acceptable Risk for Surgery and Patient seen in Pre Admission Testing Teaching & Discussion Pre-Anesthesia Teaching/Discussion Notes: Instructed NPO after midnight before surgery, except medications with 15 cc of water. Medication instructions provided according to the PAT guidelines. History Surgery Operation Date: 02/02/24 08:50 Proposed Procedures p Right Total Hip Arthroplasty - Star Navarro MD Height/Weight Height: 5 ft 10 in Weight: 110.5 kg Allergies Allergy/AdvReac Type Severity Reaction Status Date / Time pollen extracts Allergy Mild Sneezing, Verified 01/07/24 12:19 watery eyes amoxicillin AdvReac Mild GI upset Verified 12/30/23 14:39 Dust Allergy Mild Sneezing, Uncoded 01/07/24 12:19 watery eyes Medications Home Medications Medication Instructions Recorded Confirmed Last Taken zolpidem 5 mg tablet 5 mg PO HS PRN Sleep 04/17/21 12/30/23 05/21/23 ibuprofen 200 mg tablet 400 mg PO DAILY PRN Pain 05/22/23 12/30/23 05/21/23 Past Medical History Medical History (Updated 01/08/24 @ 10:49 by Iva Dupree PA-C) Diverticulitis 2003 History of COVID-2019- mild symptoms, denies hospitalization, resolved History of kidney stones passed on own Obesity Sleep apnea CPAP (compliant) Patient denies h/o stroke, seizures, heart attack, heart failure, DM, HTN, blood clots/DVTs or blood transfusions. Exercise / Class Metabolic Activity II 4-5 Yardwork/Stairs/Walk up hill (denies chest discomfort or shortness of breath with 1 FOS) Past Family History Family History Other No family history of adverse response to anesthesia Past Surgical History Surgical History History of appendectomy History of carpal tunnel release of both wrists History of colonoscopy History of colostomy 2003- subsequent reversal History of colostomy reversal History of partial knee replacement Left unicompartment knee arthroplasty (02/09/2023): SAB (x2 attempts), L3-4 + regional at [facility] History of resection of large bowel 2003 History of sinus surgery History of tooth extraction Past Anesthesia History No Hx of Anesthesia Complications, No Family Hx of Anesthesia Complications and Other (daughter had bad experience with many attempts at neuraxial anesthesia, otherwise no FHx anesthesia complications) History of PONV No Hx of PONV and Hx of Motion Sickness Social History Smoking Status: Never smoker Do You Dip or Chew Tobacco: No Hx Alcohol Use: Yes Alcohol type: beer alcohol intake frequency: a few times a week Hx Substance Use: No substance use type: does not use Review of Systems Patient denies chest pain, shortness of breath, dyspnea on exertion, reflux, fever, chills, cough, wheezing, or palpitations. Physical Exam Vital Signs Vitals BP 121/76 P 63 TEMP 98.2 SP02 94% on RA RESP 18 Physical Patient resting comfortably in chair in no acute distress, alert and oriented, responding appropriately throughout visit Full cervical extension range of motion without pain TMD 3.5 finger breadths Mallampati Score 2 Dentition: intact, denies chipped or loose teeth, caps/crowns, implants or bridges Lungs: normal respiratory effort. Good air movement, clear throughout to auscultation, no adventitious breath sounds Cardiac: regular rate and rhythm, no murmurs noted Carotid arteries: negative bruit bilat Lab Results Anesthesia Preop Results Results Anesthesia Widget: WBC 6.83 K/ul (4.8-10.8) 01/08/24 Hgb 14.6 g/dl (14.0-18.0) 01/08/24 Hct 42.0 % (42.0-52.0) 01/08/24 Plt 204 K/uL (130-400) 01/08/24 Na 136 mmol/L (136-145) 01/08/24 K 4.3 mmol/L (3.5-5.1) 01/08/24 Cl 104 mmol/L (98-107) 01/08/24 CO2 25 mmol/L (21-32) 01/08/24 BUN 14 mg/dl (6-23) 01/08/24 Creat 1.14 mg/dl (0.6-1.4) 01/08/24 Glucose Level 102 mg/dl (70-99(Fasting)) H 01/08/24 PT 10.5 Seconds (9.0-12.0) 01/08/24 PTT 26 Seconds (21-31) 01/08/24 INR 1.0 (0.9-1.1) 01/08/24 Blood Type O Negative 01/08/24 Antibody Screen NEGATIVE 01/08/24 Testing Electrocardiogram Date: 05/22/23 NSR, rate 95 bpm Left axis deviation Chest X-Ray Date: 01/08/24 1. No acute process within the chest. 2. Questionable 1 cm nodular density within the right upper lobe. This is likely due to the overlapping rib. However, follow-up chest CT recommended for confirmation. 3. This report was called/faxed to the referring physician's office following dictation.
[~2024-02-02 08:49] MED LIST changes: +BUPIVACAINE 0.5 % 5 MG/1 ML PF 10ML VIAL ONE; -TRAM-10 PO
--- NOTE | 2024-02-02 09:00 | History & Physical Bridge Note ---
Date of Service February 02, 2024 History & Physical Bridge Note I have examined the patient, reviewed the History & Physical and in the interval since the performance of the History & Physical I have noted the following changes of clinical significance: no changes noted
[2024-02-02] MEDS ORDERED: PROPOFOL IV EMULSION 10 MG/ML 20 ML VIAL IV ONE (09:41)
[2024-02-02] MEDS ORDERED: MIDAZOLAM HCL 1 MG/ML 2ML VIAL ONE (09:41)
[2024-02-02] MEDS ORDERED: ONDANSETRON INJ 2 MG/ML 2 ML VIAL ONE (09:41)
[2024-02-02] MEDS ORDERED: fentaNYL citrate PF 100 MCG/2 ML VIAL ONE (09:41)
[2024-02-02] MEDS: ACETAMINOPHEN 500 MG TAB PO SCH ×2 (10:04→15:35)
[2024-02-02] MEDS: LR 500ML BOLUS, THEN 15ML/HR IV SCH (10:04)
[2024-02-02] MEDS: CeleBREX 200 MG CAP PO SCH (10:05)
[2024-02-02] MEDS: FAMOTIDINE 20 MG TAB PO SCH (10:05)
[2024-02-02] MEDS: dexAMETHasone**PF** 10 MG/ML VIAL IV SCH (10:06)
[2024-02-02] MEDS: Scopolamine 1 MG TDSY TD SCH (10:06)
[2024-02-02] MEDS: METOCLOPRAMIDE HCL 10 MG TABLET PO SCH (10:11)
[2024-02-02] MEDS: LR 60ML/HR IV SCH (10:11)
[2024-02-02] MEDS ORDERED: ONDANSETRON INJ 2 MG/ML 2 ML VIAL IV PRN ×2 (10:51→14:39)
[2024-02-02] MEDS ORDERED: fentaNYL citrate PF 100 MCG/2 ML VIAL IV PRN (10:51)
[2024-02-02] MEDS ORDERED: ePHEDrine sulfate 50 MG/ML AMP IV PRN (10:51)
[2024-02-02] MEDS ORDERED: ATROPINE SULFATE 0.1 MG/ML 10ML SYR IV PRN (10:51)
[2024-02-02] MEDS ORDERED: KETAMINE HCL 10MG/ML SYR ONE (10:56)
[2024-02-02] MEDS: TRANEXAMIC ACID 1,000 MG **IV Pre-op IV SCH (11:00)
[2024-02-02] MEDS: ceFAZolin 2000MG 2,000 MG/15 ML SYR IV SCH ×2 (11:11→18:30)
--- OUTSIDE RECORDS SUMMARY | 2024-02-02 11:51 | External Medical Summary | Summary of Care ---
Author Name Unknown Organization [facility] Address [address] [place] [address] Phone [phone] Care Team Providers Care Resin Filterer Name Role Phone Rubin Adames MD Primary Care Provider [phone] Encounter Details Date Type Department Care Team (Late st Contact Info) Description 01/21/2024 Orders Only [facility] [address] [place] [address] Rubin Adames MD [address] [place] [address] Allergies Active Allergy Reactions Criticality Noted Date Comments Amoxicillin-Pot Clavulanate Diarrhea 03/20/20 14 Dust 04/17/2021 Other reaction(s): SHORTNESS OF BREATH Pollen Extract 04/17/2021 Other reaction(s): SHORTNESS OF BREATH documented as of this encounter (statuses as of 01/21/2024) Medications Medication Sig Dispensed Refills Start Date End Date Status FLUTICASONE PROPIONATE 50 MCG/ACT NA SUSPIndications:Aller gic rhinitis 2 sprays in each nostril daily 1 Inhaler 5 03/30/2014 Active Naproxen Sodium 220 MG Oral Capsule (Aleve) Take 1 Capsule by mouth 2 times a day with morning and evening meals. 0 Active Ibuprofen 200 MG Oral Tablet (Motrin) 2 Tablets. 0 04/17/2021 Active Zolpidem Tartrate 5 MG Oral Tablet (Ambien)Indications:O SA (obstructive sleep apnea) take 1 tablet by mouth at bedtime if needed for sleep 30 Tablet 3 12/10/2023 Active documented as of this encounter (statuses as of 01/21/2024) Active Problems Problem Noted Date Diagnosed Date DDD (degenerative disc disease), lumbar 04/28/20 Spondylosis of lumbar region without myelopathy or radiculopathy 04/28/2021 Obesity, Class I, BMI 30.0-34.9 (see actual BMI) 11/12/2017 Overview: bmi= 33.00 11/12/17 Allergic rhinitis 08/02/2012 Dyslipidemia, goal LDL below 100 07/26/2010 Chronic rhinitis 07/26/2010 Obstructive sleep apnea on CPAP 11/16/2008 NEUROPATHY IN OTHER DIS 10/06/2000 Carpal tunnel syndrome Overview: L>R documented as of this encounter (statuses as of 01/21/2024) Resolved Problems Problem Noted Date Diagnosed Date Resolved Date Obesity, Class I, BMI 30.0-3 4.9 (see actual BMI) 08/02/2012 11/12/2017 Overview: bmi= 31.55 08/02/12 Chronic sinusitis 08/02/2012 10/20/2017 Malaise and fatigue 08/02/2012 10/20/20 17 Pain in limb 12/24/2010 10/20/2017 Vaccination not carried out because of patient refusal 12/24/2010 10/20/2017 Acute sinusitis 07/26/2010 10/20/2017 DERMATITIS DUE TO METAL 06/30/200803/2017 Dermatitis due to plant 06/30/200803/2017 ADVANCE DIRECTIVE INFORMATION 08/08/2005 10/20/2017 Overview: No, Advance Directive brochure given to patient at prior appointment. DIVERTICULITIS OF COLON 09/05/200410/17 JOINT PAIN-SHLDER 10/06/2000 10/20/2017 Tobacco use disorder 10/06/2000 012 Bicipital tenosynovitis 10/06/200003/2017 JOINT PAIN-SHLDER- OVERUSE 10/06/2000 1 12/21/2016 documented as of this encounter (statuses as of 01/21/2024) Immunizations Name Administration Dates Next Due Seasonal Influenza, PF, 6 M & above, IM , (FluLaval or Fluzone) 08/16/2020 TD - Tetanus/Diptheria (ADULT) 05/16/2004 TDAP (age 10 and older)(Boostrix) 08/16/2020 Zoster Vaccine Recombinant (Shingrix) 01/20/2024 documented as of this encounter Social History Tobacco Use Types Packs/Day Years Used Date Smoking Tobacco: Former Cigarettes 0.5 20 0 07/23/1984 - 07/23/2004 Smokeless Tobacco: Never Comments:quit 07/23/04 after s urgery Alcohol Use Standard Drinks/Week Comments Yes 0 (1 standard drink = 0.6 oz pur e alcohol) one or two beers/day Sex and Gender Information Value Date Recorded Sex Assigned at Not on file Gender Identity Not on file Sexual Orientation Not on file Job Start Date Occupation Industry Not on file Not on file Not on file documented as of this encounter Plan of Treatment Upcoming Encounters Date Type Department Care Team (Late st Contact Info) Description 01/20/2025 7:40 AM EST Office Visit [facility] [address] [place] [address] MarchRubin MD [address] [place] [address] Scheduled Procedures Name Priority Associated Diagnoses Date/Ti me COLONOSCOPY FLEXIBLE PROXIMAL DIAGNOSTIC Recall History of colon polyps Health Maintenance Due Date Last Done Comments HIV Screening 01/18/1975 Hepatitis C Screening 01/18/1978 Lipid Panel 05/25/2014 05/25/2009 Depression Screening 02/23/2018 02/23/2017 Diabetes Screening 07/04/2020 01/08/2024, 0 07/04/2017, 05/15/2014, Additional history exists COLONOSCOPY-EVERY 5 YRS AGES 18-100 11/24/2022 11/24/2017, 11/24/2017, 03/12/2005 COVID-19 Vaccine ( - 2022- season) 2023 Influenza Vaccine (FLU shot) (#1) 2023 08/16/2020, 08/16/2020 Zoster Vaccines (2 of 2) 03/16/2024 01/20/2024 DTaP,Tdap,and Td Vaccines (2 - Td or Tdap) 08/16/2030 08/16/2020, 05/16/2004 GARDASIL-HPV IMMUNIZATION SERIES Aged Out No longer eligible based on patient's age to complete this topic Hepatitis B Aged Out No longer eligi ble based on patient's age to complete this topic MENINGOCOCCAL (MENACTRA/MENVEO) Aged Out No longer eligible based on patient's age to complete this topic Pneumococcal Vaccine: Pediatrics (0 to 5 Years) and At-Risk Patients (6 to 64 Years) Aged Out No longer eligible based on patient's age to complete this topic documented as of this encounter Medical Devices Not on filedocumented as of this encounter Procedures Procedure Name Priority Date/Time Associated Diagnosis Comments CHEMISTRY-OUTSIDE Routine 01/08/2024 documented in this encounter Results * (ABNORMAL) CHEMISTRY-OUTSIDE (01/08/2024) Not all results display below - see scan for full detail OUTSIDE LAB (SEE SCANNED REPORT) Comment:SEE SCAN - PTINR, BM P, CRP, CBCD CREATININE-OUTSID E LAB 1.14 0.6 - 1.4 MG/DL OUTSIDE LAB (SEE SCANNED REPORT) EGFR-OUTSIDE LAB 68.1 ML/MIN OUT SIDE LAB (SEE SCANNED REPORT) POTASSIUM-OUTSIDE LAB 4.3 3.5 - 5.1 MMOL/L OUTSIDE LAB (SEE SCANNED REPORT) GLUCOSE-OUTSIDE LAB 102(A) 70 - 99 MG/DL OUTSIDE LAB (SEE SCANNED REPORT) HOURS FASTING OUTSID E LAB (SEE SCANNED REPORT) TRIGLYCERIDES-OUT SIDE LAB OUTSIDE LAB (SEE SCANNED REPORT) CHOLESTEROL-OUTSI DE LAB OUTSIDE LAB (SEE SCANNED REPORT) HDL-OUTSIDE LAB OUTS MUNA LAB (SEE SCANNED REPORT) CHOL/HDL RATIO-OUTSIDE LAB OUTSIDE LA B (SEE SCANNED REPORT) LDL (CALCULATED)-OUTS MUNA LAB OUTSIDE LAB (SEE SCANNED REPORT) LDL (DIRECT MEASURE)-OUTSIDE LAB OUTSIDE LAB (SEE SCANNED REPORT) HEMOGLOBIN, [id number] LAB OUTSIDE LAB (SEE SCANNED REPORT) PHOSPHORUS-OUTSID E LAB OUTSIDE LAB (SEE SCANNED REPORT) PTH-OUTSIDE LAB OUTS MUNA LAB (SEE SCANNED REPORT) MICROALBUMIN RATIO-OUTSIDE LAB OUTSIDE LA B (SEE SCANNED REPORT) PROTEIN, UA-OUTSIDE LAB OUTSIDE LAB (SEE SCANNED REPORT) HEMOGLOBIN-OUTSID E LAB 14.6 14.0 - 18.0 G/DL OUTSIDE LAB (SEE SCANNED REPORT) 01/08/2024 Star Navarro MD LABORATORY OUTSIDE LAB (SEE SCANNED REPORT) documented in this encounter Care Teams Resin Filterer Relationship Specialty Start Date End Date March, Rubin Parr MD [address] [address] PCP - General Family Medicine 01/12/24 documented as of this encounter
--- OUTSIDE RECORDS SUMMARY | 2024-02-02 11:51 | External Medical Summary | Summary of Care ---
Author Name Unknown Organization [facility] Address [address] [place] [address] Phone [phone] Care Team Providers Care Rehabilitation Supervisor Name Role Phone Rubin Adames MD Primary Care Provider [phone] Reason for Visit * Reason Onset Date Comments pre-op exam Patient is here today for a pre-op exam. Patient has a form that needs filled out. Patient would like the shingles vaccine today. Immunizations 01/20/2024 Shingrix Encounter Details Date Type Department Care Team (Latest Contact Info) Description 01/20/2024 8:00 AM EST Office Visit [facility] [address] [place] [address] Rubin Adames MD [address] [place] [address] Need for vaccination for zoster*; Primary osteoarthritis of one hip, right; Pre-op evaluation; Obstructive sleep apnea on CPAP; Primary insomnia Allergies Active Allergy Reactions Criticality Noted Date Comments Amoxicillin-Pot Clavulanate Diarrhea 03/20/20 14 Dust 04/17/2021 Other reaction(s): SHORTNESS OF BREATH Pollen Extract 04/17/2021 Other reaction(s): SHORTNESS OF BREATH documented as of this encounter (statuses as of 01/20/2024) Medications Medication Sig Dispensed Refills Start Date End Date Status FLUTICASONE PROPIONATE 50 MCG/ACT NA SUSPIndications:A llergic rhinitis 2 sprays in each nostril daily 1 Inhaler 5 03/30/2014 Active Naproxen Sodium 220 MG Oral Capsule (Aleve) Take 1 Capsule by mouth 2 times a day with morning and evening meals. 0 Active Ibuprofen 200 MG Oral Tablet (Motrin) 2 Tablets. 0 04/17/2021 Active Zolpidem Tartrate 5 MG Oral Tablet (Ambien)Indicatio ns:EMILIANO (obstructive sleep apnea) take 1 tablet by mouth at bedtime if needed for sleep 30 Tablet 3 12/10/2023 Active Celecoxib 100 MG Oral Capsule (CeleBREX) take 1 capsule by mouth twice a day if needed for pain 0 01/20/2024 Discontinued (Medication List Clean Up) documented as of this encounter (statuses as of 01/20/2024) Active Problems Problem Noted Date Diagnosed Date DDD (degenerative disc disease), lumbar 04/28/20 21 Spondylosis of lumbar region without myelopathy or radiculopathy 04/28/2021 Obesity, Class I, BMI 30.0-34.9 (see actual BMI) 11/12/2017 Overview: bmi= 33.00 11/12/17 Allergic rhinitis 08/02/2012 Dyslipidemia, goal LDL below 100 07/26/2010 Chronic rhinitis 07/26/2010 Obstructive sleep apnea on CPAP 11/16/2008 NEUROPATHY IN OTHER DIS 10/06/2000 Carpal tunnel syndrome Overview: L>R documented as of this encounter (statuses as of 01/20/2024) Resolved Problems Problem Noted Date Diagnosed Date [...] as of this encounter (statuses as of 01/20/2024) Immunizations Name Administration Dates Next Due Seasonal [...] on file documented as of this encounter Last Filed Vital Signs Vital Sign Reading Time Taken Comments Blood Pressure 126/84 01/20/2024 8:03 AM EST Pulse 77 01/20/2024 8:03 AM EST Temperature 36.8 C (98.2 F) 01/20/2024 8:03 AM ES T Respiratory Rate 16 01/20/2024 8:03 AM EST Oxygen Saturation 95% 01/20/2024 8:03 AM EST Inhaled Oxygen Concentration - - Weight 113.3 kg (249 lb 12.8 oz) 01/20/2024 8:03 AM EST Height 177.8 cm (5' 10") 01/20/2024 8:03 AM EST Body Mass Index 35.84 01/20/2024 8:03 AM EST documented in this encounter Patient Instructions * Patient Instructions* Alison Bone LPN - 01/20/2024 8:06 AM EST ~~PATIENT INSTRUCTIONS FOR SHINGRIX VACCINE~~ Possible side effects of Shingrix vaccine, (shingles), are usually mild and can include: 1. Soreness or redness at injection site 2. Low grade fever 3. Body aches You may use a fever / pain reducing medication as needed for these symptoms. LET YOUR DOCTOR KNOW IMMEDIATELY IF YOU HAVE DIFFICULTY BREATHING OR SWALLOWING, EXPERIENCE ITCHINGOF FEET OR HANDS, HAVE SWELLING OF EYES, FACE OR INSIDE OF NOSE. documented in this encounter Progress Notes * Alison Bone LPN - 01/20/2024 8:06 AM EST Does the patient have active shingles? No If, yes, patient must wait to receive vaccine till after rash is gone. Does the patient have an illness today with a fever more than 101?F? No Has the patient ever had a serious allergic reaction after receiving a vaccination? No Has the patient had a blood test showing they are not immune to Chicken Pox (rare)? No If yes, should get Chicken pox vaccine instead of shingrix. Verified patient has prescription/drug coverage. Patient has been informed that [employer] copays are close to $0. In most cases copays will be around $10. The maximum co-pay patients may get could as high as $200. yes Shingrix Vaccine Information Sheet has been provided. Alison Bone LPN 01/20/2024 8:06 AM IMMUNIZATION ADMINISTRATION DOCUMENTATION Time Out Procedure Performed: Yes Patient Identified (Ask Name/Date of ): Yes Patient allergic to latex?No VFC Stock? No Immunization(s) verified: Yes, Immunization Name: Shingrix, VIS Sheet(s) given: Yes Verified Side and Site: Yes Verified Shot(s) with Parent(s)/Patient: Yes Shingrix was administered per clinic protocol. Patient received the Shingrix VIS (Vaccine Information Sheet). Alison Bone LPN, 01/20/2024, 8:06 AM * May, Rubin Parr MD - 01/20/2024 8:06 AM EST Images from the original note were not included. Assessment and Plan 64-year-old male who presents for preop evaluation prior to right hip replacement with Dr. Patiño scheduled for 02/02/2024. Low risk for cardiac complications based on leak criteria. No medication changes other than avoiding taking Ambien prior to surgery. Lab work and imaging reassuring. We will follow up with a CT scan to evaluate possible lung nodule following surgery. No anesthesia complications. At this point he is appropriate to proceed with surgery as scheduled. 1. Primary osteoarthritis of one hip, right 2. Pre-op evaluation 3. Obstructive sleep apnea on CPAP 4. Primary insomnia 5. Need for vaccination for zoster - ZOSTER VACCINE RECOMB, 2 DOSE, IM (SHINGRIX) Wrap-Up Follow up as needed. History of Present Illness The patient is a 64 year old male with past medical history of dyslipidemia, EMILIANO on CPAP, DDD, obesity who present for pre op evaluation prior to right hip replacement scheduled for 02/02/2024. Patient with right hip pain for more than a year. Has history of left TKA in January 2023. Limited ability to ambulate and constant pain. Reviewed past medical history and medications. Only rx med is ambien taken nightly for sleep. Reveiwed lab work and xray from [facility]. Xray shows incidental ?lung nodule that may be shadowing from a rib. CT recommended for confirmation. Lab work within normal limits. Past Medical History: Diagnosis Date Carpal tunnel syndrome 01/24 L>R Diverticulitis of colon w/ perforation Obstructive sleep apnea on CPAP 2008 Past Surgical History: Procedure Laterality Date CARPAL TUNNEL SURGERY bilateral CLOSURE OF ENTEROSTOMY,W/RESEC 09/13/04 COLONOSCOPY 2004 10 years COLONOSCOPY, DIAGNOSTIC (RECTUM) 11/24/2017 adenomatous & hyperplastic polyps, repeat 5 yrs/COLONOSCOPY FLEXIBLE PROXIMAL DIAGNOSTIC performed by Adrianna Martinez DO at ENDOSCOPY [facility] INFORMATION 07/22/04 sigmoid coloectomy with colostomy and calixto pouch [facility] reversal REMOVAL OF APPENDIX Family History Problem Relation Age of Onset Asthma Son Heart Disorder Father Social History Socioeconomic History Marital status: Spouse name: Not on file Number of children: Not on file Years of education: Not on file Highest education level: Not on file Occupational History Not on file Tobacco Use Smoking status: Former Current packs/day: 0.00 Average packs/day: 0.5 packs/day for 20.0 years (10.0 ttl pk-yrs) Types: Cigarettes Start date: 07/23/1984 Quit date: 07/23/2004 Years since quittin.5 Smokeless tobacco: Never Tobacco comments: quit 07/23/04 after surgery Substance and Sexual Activity Alcohol use: Yes Comment: one or two beers/day Drug use: No Sexual activity: Not on file Other Topics Concern Not on file Social History Narrative Not on file Social Determinants of Health Financial Resource Strain: Not on file Food Insecurity: Not on file Transportation Needs: Not on file Physical Activity: Not on file Stress: Not on file Social Connections: Not on file Intimate Partner Violence: Not on file Housing Stability: Not on file Review of patient's allergies indicates: Allergen Reactions Amoxicillin-Pot Clavulanate Diarrhea Dust Other reaction(s): SHORTNESS OF BREATH Pollen Extract Other reaction(s): SHORTNESS OF BREATH Physical Exam Vitals: 01/20/24 0803 Temp: 36.8 C (98.2 F) Pulse: 77 Resp: 16 SpO2: 95% BP: 126/84 BMI: 35.84 Physical Exam Physical Exam Vitals reviewed. Constitutional: General: He is not in acute distress. Cardiovascular: Rate and Rhythm: Normal rate and regular rhythm. Heart sounds: No murmur heard. Pulmonary: Effort: Pulmonary effort is normal. No respiratory distress. Breath sounds: Normal breath sounds. No wheezing. Musculoskeletal: Comments: Walking with an antalgic gait. Skin: General: Skin is warm and dry. Neurological: General: No focal deficit present. Mental Status: He is alert. This note has been completed in part utilizing [employer] Speech Voice Recognition Software. Due to technical limitations of the software, grammatical errors, random word insertions, prounoun errors, and incomplete sentences may occur. Any formal questions or concerns about the content, text, or information contained within the body of this dictation should be directly addressed to the provider for clarification. documented in this encounter Nursing Notes * Alison Bone LPN - 01/20/2024 8:05 AM EST The patient has been properly identified by confirmation of name and date of . Chief Complaint Patient presents with pre-op exam Patient is here today for a pre-op exam. Patient has a form that needs filled out. documented in this encounter Plan of Treatment Upcoming Encounters Date Type Department Care Team (Late st Contact Info) Description 01/20/2025 7:40 AM EST Office Visit [facility] [address] [place] [address] MarchRubin MD [address] [place] [address] Scheduled Procedures Name Priority Associated Diagnoses Date/Ti me COLONOSCOPY FLEXIBLE PROXIMAL DIAGNOSTIC Recall History of colon polyps Health Maintenance Due Date Last Done Comments HIV Screening 01/18/1975 Hepatitis C Screening 01/18/1978 Lipid Panel 05/25/2014 05/25/2009 Depression Screening 02/23/2018 02/23/2017 Diabetes Screening 07/04/2020 07/04/2017, 0 05/15/2014, 03/28/2013, Additional history exists COLONOSCOPY-EVERY 5 YRS AGES 18-100 11/24/2022 11/24/2017, 11/24/2017, 03/12/2005 COVID-19 Vaccine ( season) 2023 Influenza Vaccine (FLU shot) (#1) [...] Not on filedocumented as of this encounter Visit Diagnoses Diagnosis Need for vaccination for zoster- Primary Need for prophylactic vaccination and inoculation against other viral diseases Primary osteoarthritis of one hip, right Pre-op evaluation Preoperative examination, unspecified Obstructive sleep apnea on CPAP Obstructive sleep apnea (adult) (pediatric) Primary insomnia Persistent disorder of initiating or maintaining sleep documented in this encounter Care Teams Rehabilitation Supervisor Relationship Specialty Start Date End Date March, Rubin Parr MD [address] [place] [address] PCP - General Family Medicine 01/12/24 documented as of this encounter
--- OUTSIDE RECORDS SUMMARY | 2024-02-02 11:52 | External Medical Summary | Summary of Care ---
Author Name Unknown Organization [facility] Address [address] [place] [address] Phone [phone] Care Team Providers Care Weft Straightener Name Role Phone Rubin Adames MD Primary Care Provider [phone] Encounter Details Date Type Department Care Team (Late st Contact Info) Description 01/12/2024 Telephone [facility] [address] [place] [address] Rubin Adames MD [address] [place] [address] Allergies Active Allergy Reactions Criticality Noted Date Comments Amoxicillin-Pot Clavulanate Diarrhea 03/20/20 14 Dust 04/17/2021 Other reaction(s): SHORTNESS OF BREATH Pollen Extract 04/17/2021 Other reaction(s): SHORTNESS OF BREATH documented as of this encounter (statuses as of 01/14/2024) Medications Medication Sig Dispensed Refills Start Date End Date Status FLUTICASONE PROPIONATE 50 MCG/ACT NA SUSPIndications:Aller gic rhinitis 2 sprays in each nostril daily 1 Inhaler 5 03/30/2014 Active Naproxen Sodium 220 MG Oral Capsule (Aleve) Take 1 Capsule by mouth 2 times a day with morning and evening meals. 0 Active Ibuprofen 200 MG Oral Tablet (Motrin) 2 Tablets. 0 04/17/2021 Active Celecoxib 100 MG Oral Capsule (CeleBREX) take 1 capsule by mouth twice a day if needed for pain 0 Active Zolpidem Tartrate 5 MG Oral Tablet (Ambien)Indications:O SA (obstructive sleep apnea) take 1 tablet by mouth at bedtime if needed for sleep 30 Tablet 3 12/10/2023 Active documented as of this encounter (statuses as of 01/14/2024) Active Problems Problem Noted Date Diagnosed Date [...] as of this encounter (statuses as of 01/14/2024) Resolved Problems Problem Noted Date Diagnosed Date [...] as of this encounter (statuses as of 01/14/2024) Immunizations Name Administration Dates Next Due Seasonal Influenza, PF, 6 M & above, IM , (FluLaval or Fluzone) 08/16/2020 TD - Tetanus/Diptheria (ADULT) 05/16/2004 TDAP (age 10 and older)(Boostrix) 08/16/2020 documented as of this encounter Social History [...] on file documented as of this encounter Miscellaneous Notes * Telephone Encounter - Xochilt Hernandez OSA - 01/12/2024 3:52 PM EST 01/12/24 Paperwork rec from [facility] for pt for pre-op appt. Paperwork placed in "[employer] File" near the [facility]es Station that needs to be completed and faxed back for the pt before surgery date. documented in this encounter Plan of Treatment Upcoming Encounters Date Type Department Care Team (Late st Contact Info) Description 01/20/2024 8:00 AM EST Office Visit [facility] [address] [place] [address] March, Rubin Parr MD [address] [place] [address] Scheduled Procedures Name Priority Associated Diagnoses Date/Ti me COLONOSCOPY FLEXIBLE PROXIMAL DIAGNOSTIC Recall History of colon polyps Health Maintenance Due Date Last Done Comments HIV Screening 01/18/1975 Hepatitis C Screening 01/18/1978 Zoster Vaccines (1 of 2) 01/18/2010 Lipid Panel 05/25/2014 05/25/2009 Depression Screening 02/23/2018 02/23/2017 Diabetes Screening 07/04/2020 07/04/2017, 0 05/15/2014, 03/28/2013, Additional history exists COLONOSCOPY-EVERY 5 YRS AGES 18-100 11/24/2022 11/24/2017, 11/24/2017, 03/12/2005 COVID-19 Vaccine (1 - 2022- season) 2023 Influenza Vaccine (FLU shot) (#1) 2023 08/16/2020, 08/16/2020 DTaP,Tdap,and Td Vaccines (2 - Td or [...] Not on filedocumented as of this encounter Care Teams Weft Straightener Relationship Specialty Start Date End Date March, Rubin Parr MD [address] [place] [facility] [place] [address] PCP - General Family Medicine 01/12/24 documented as of this encounter
--- OUTSIDE RECORDS SUMMARY | 2024-02-02 11:52 | External Medical Summary | Summary of Care ---
Author Name Unknown Organization [facility] Address [address] [place] [address] Phone [phone] Care Team Providers Care Cherry Sorter Name Role Phone Rubin Adames MD Primary Care Provider [phone] Reason for Visit * Reason Onset Date Comments Health Maintenance 01/18/2024 Encounter Details Date Type Department Care Team (Late st Contact Info) Description [facility] [address] [place] [facility] [place] [address] Rubin Adames MD [address] [place] [address] Health Maintenance Allergies Active Allergy Reactions Criticality Noted Date Comments Amoxicillin-Pot Clavulanate Diarrhea 03/20/20 14 Dust 04/17/2021 Other reaction(s): SHORTNESS OF BREATH Pollen Extract 04/17/2021 Other reaction(s): SHORTNESS OF BREATH documented as of this encounter (statuses as of 01/18/2024) Medications Medication Sig Dispensed Refills Start Date [...] as of this encounter (statuses as of 01/18/2024) Active Problems Problem Noted Date Diagnosed Date [...] as of this encounter (statuses as of 01/18/2024) Resolved Problems Problem Noted Date Diagnosed Date [...] Tobacco use disorder 10/06/2000 012 Bicipital tenosynovitis 10/06/2000 12/0 03/2017 JOINT PAIN-SHLDER- OVERUSE 10/06/2000 1 12/21/2016 documented as of this encounter (statuses as of 01/18/2024) Immunizations Name Administration Dates Next Due Seasonal [...] encounter Miscellaneous Notes * Telephone Encounter - Brittany Isidro LPN - 01/18/2024 10:22 AM EST Care Gaps Comprehensive Care Outreach Last Office/Telemedicine Visit: 08/16/2020 (in office), Visit date not found (telemedicine) Next Office Visit: 01/20/2024 Hemoglobin AIC Results: No results found for: "HEMOGLOBIN A1C" BP Readings from Last 1 Encounters: 12/10/23 123/61 Reviewed Health Maintenance below: Health Maintenance Topic Date Due HIV Screening Never done Hepatitis C Screening Never done Zoster Vaccines (1 of 2) Never done Lipid Panel 05/25/2014 Depression Screening 02/23/2018 Diabetes Screening 07/04/2020 COLONOSCOPY-EVERY 5 YRS AGES 18-100 11/24/2022 Colon Lab Having hip replacemnt preop this week Care Gap Outreach Action Taken: Outreach not indicated documented in this encounter Plan of Treatment Upcoming Encounters Date Type Department Care Team (Late st Contact Info) Description 01/20/2024 8:00 AM EST [facility] [place] [address] [facility] [address] March, Rubin Parr MD [address] [place] [place] [address] Scheduled Procedures Name Priority Associated Diagnoses Date/Ti [...] 11/24/2017, 11/24/2017, 03/12/2005 COVID-19 Vaccine (1 - season) 2023 Influenza Vaccine (FLU shot) (#1) [...] filedocumented as of this encounter Care Teams Cherry Sorter Relationship Specialty Start Date End Date March, Rubin Parr MD [address] [place] [address] PCP - General Family Medicine 01/12/24 documented as of this encounter
[2024-02-02] MEDS: EPINEPHrine INJ 1 MG/ML AMP ONE (12:37)
[2024-02-02] MEDS: BUPIVACAINE 0.5 % 5 MG/1 ML MPF 30ML VIAL ONE (12:37)
--- NOTE | 2024-02-02 12:54 | Operative Report ---
PG Post Operative Report Pre & Post Diagnosis Operation Date: 02/02/24 10:40 Pre-Op Diagnosis: Right Hip Degenerative Joint Disease Post-Op Diagnosis: Right Hip Degenerative Joint Disease I identified the patient and participated in the time-out.: Yes Procedure Operation Date: 02/02/24 10:40 Actual Procedures p Right Total Hip Arthroplasty(Right) - Star Navarro MD Surgeon Star Navarro MD Learning And Development Coordinator Bryan Costa PA-C Estimated Blood Loss 150 Findings Consistent with Post-Op Diagnosis Operative findings were advanced right hip DJD. He had grade 4 [id number] disease the femoral head and acetabulum. He reported significant joint effusion. Not a lot of osteophyte formation. Specimens Right femoral head sent for pathology. Anesthesia Type Spinal MAC Complications none Disposition Accompanied Patient To Recovery: No Indications Patient is 64-year-old active gentleman has had a several year history of gradual increasing right hip pain the discomfort is consequently worse over the past 6 months. He underwent a partial knee replacement of his left side about a year ago. He has recovered from this but does right hip started bothering more more as time is gone on. X-rays show advanced hip arthritis. Failed conservative measures. He elected proceed with total hip arthroplasty. Description of Procedure Operative implants consist of: 1 Biomet G7 size 54 mm acetabular shell. 2. [place] hole oss architect. 3. 6.5 cancellous acetabular screws 1 of 35 mm length 1 to 30 mm length. 4. Highly cross-linked polyethylene liner with a 54 mm outer diameter and 36 mm inner diameter. 5. DePuy Corail size 12 KLA femoral stem. 6. +5/36 mm ceramic articular ball. The patient was taken the op room, identified, placed on the operating table in the supine position. All contact areas were appropriately padded. IV antibiotics tried by anesthesia team. Spinal anesthetic and been implemented holding area. Patient was then placed in the left lateral decubitus position. An axillary roll was placed. Distal Birkett position was used for positioning. The right hip and leg were then prepped and draped in usual sterile fashion. A posterolateral approach of the right hip was then performed to a curvilinear incision centered over the greater trochanter. Sharp dissection was carried through subcutaneous tissue down to level the IT band gluteal fascia to the IT band gluteal fascia incised longitudinally in line with skin incision. The underlying greater bursa was excised. The piriformis and external rotators along with hip joint capsule were then released from the posterior aspect hip as a single layer. Great care was taken throughout the procedure protect the sciatic nerve at all times. Hip was internally rotated and dislocated. Femoral neck osteotomy cut was made with Final Cut about a centimeter above the lesser trochanter. Femoral head was removed and sent for pathology. The femur was retracted anteriorly. Attention drawn the acetabulum. The acetabular labrum was excised. The pulmonary fat was encountered size. Sequential reaming the acetabular was then performed performed beginning with a size 45 and progressing up to 53. I reamed a little bit with a 54 reamer and then placed a 54 mm Biomet G7 acetabular shell in about 40 degrees lateral opening and 20 degrees of anteversion. It was fixed with two 6.5 cancellous acetabular screws. Trial liner was placed. Attention drawn the femur. The proximal femur ended with a Hi-G-Tek cutter followed by canal finder. I then broached beginning the size 8 and progressing up to 12. Got excellent fitted to 12. We then trialed the hip and the +5 articular ball seem to recreate soft tissue tension appropriately, equal leg lengths, and was fully stable in full extension and external rotation and flexion to 90 degrees internal Tatian over [address] We elect to place these implants. All trial implants were removed. An apex hole oss architect was placed. Highly cross-linked polyethylene liner was placed. A 12 KLA femoral stem was impacted in position. +5/36 mm ceramic articular ball was placed. Hip was located and once again found to be stable. Attention drawn toward closing. Wounds irrigated coconuts pulsatile lavage solution. I did inject locally with 60 cc of absent Marcaine with epinephrine. The posterior capsule and external rotators were then repaired through drill holes in the posterior trochanter with #2 Tycron suture. The IT band gluteal fascia then closed in 1 PDS suture in running fashion for subcutaneous tissues then closed with 2 layers the deep layer #1 Vicryl suture and subcutaneous tissue with 2-0 Dexon suture in a buried interrupted fashion. The skin was then closed with skin librado. Leg was then cleaned and a Prevena VAC dressing was applied. The patient was then transferred to the recovery room in stable condition. The patient tolerated procedure well and there were no complications. Bryan Costa, my physician assistant librarian, was present for the entire procedure. His assistance was essential and required for appropriate patient positioning, prepping and draping, surgical exposure, performing the technical details of the operation, placement the implants, closure of the wound, and placement of the sterile bandage. I attest to the content of the Intraoperative Record and any orders documented therein. Any exceptions are noted below.
--- NOTE | 2024-02-02 13:55 | XRay Report ---
SINGLE VIEW PELVIS; SINGLE VIEW RIGHT HIP CLINICAL HISTORY: Postoperative examination. FINDINGS: An AP portable view of the hips and pelvis MR pelvis with a crosstable lateral portable vie w of the right hip are compared to study dated 09/28/2023. A bipolar right hip arthroplasty is in yenifer r-anatomic alignment. At least 2 cortical lag screws transfix the acetabular cup. No acute fracture i s identified. There are expected postoperative changes overlying the right hip including skin clips, subcutaneous gas, a surgical drain, and soft tissue swelling. Mild arthritic change is seen in the le ft hip. IMPRESSION: Expected postoperative findings status post right hip arthroplasty. No acute fracture is seen. ACT 112: Negative or not required by law. Electronically signed by: Fazal Hernandez M.D. 02/02/2024 1:53 PM
--- NOTE | 2024-02-02 14:00 | Anesthesiology Progress Note ---
Date of Service February 02, 2024 Anesthesia Post Procedure Vital Signs Vital Signs: Temp Pulse Pulse Resp BP BP Pulse Ox 02/02/24 13:45 55 L 12 120/78 96 02/02/24 13:35 58 L 16 119/71 97 02/02/24 13:25 56 L 14 118/73 97 02/02/24 13:15 56 L 15 119/77 98 02/02/24 13:05 56 L 14 114/69 99 02/02/24 12:55 59 L 17 117/66 98 02/02/24 12:47 97.2 F L 65 12 120/66 98 02/02/24 09:48 02/02/24 09:48 97.9 F 69 20 141/76 H 98 O2 Del Method 02/02/24 13:45 Room Air 02/02/24 13:35 Room Air 02/02/24 13:25 Room Air 02/02/24 13:15 Room Air 02/02/24 13:05 Room Air 02/02/24 12:55 Room Air 02/02/24 12:47 Room Air 02/02/24 09:48 Room Air 02/02/24 09:48 Room Air Pain Intensity Right Hip: Pain Intensity: 1 Transfer of Care Handoff Completed per policy Notes Mental Status: alert / awake / arousable and participated in evaluation Patient Amnestic to Procedure: Yes Nausea / Vomiting: adequately controlled Pain: adequately controlled Airway Patency, RR, SpO2: stable & adequate BP & HR: stable & adequate Hydration State: stable & adequate Neuraxial Anesthesia: was administered and sensory block is resolving Anesthetic Complications: no major complications apparent and Pt Satisfied with anesthetic care
[2024-02-02] MEDS ORDERED: ALUMINUM/MAGNESIUM SUSP 30 ML UDC PO PRN (14:39)
[2024-02-02] MEDS ORDERED: bisacodyL 10 MG SUPP PR PRN (14:39)
[2024-02-02] MEDS ORDERED: ZOLPIDEM TARTRATE 5 MG TAB PO PRN (14:39)
[2024-02-02] MEDS ORDERED: NALOXONE HCL 0.4 MG/1 ML VIAL/CARP IV PRN (14:39)
[2024-02-02] MEDS ORDERED: ACETAMINOPHEN 500 MG TAB PO SCH (14:39)
[2024-02-02] MEDS ORDERED: MAGNESIUM HYDROXIDE SUSP 30 ML UDC PO PRN (14:39)
[2024-02-02] MEDS ORDERED: METOCLOPRAMIDE HCL INJ 5 MG/ML 2 ML VIAL IV PRN (14:39)
[2024-02-02] MEDS ORDERED: TAMSULOSIN HCL 0.4 MG CAP PO PRN ×2 (14:39)
[2024-02-02] MEDS: Scopolamine CHECK PATCH PLACEMENT SCH (15:36)
[2024-02-02] MEDS: SODIUM CHLORIDE 0.9% 1,000 ML IV SCH (15:36)
[2024-02-02] MEDS: ASCORBIC ACID 500 MG TAB PO SCH (17:36)
[2024-02-02] MEDS: HYDROmorphone INJ 0.5 MG/0.5 ML SYR IV PRN (18:05)
[2024-02-02] MEDS: TRANEXAMIC ACID / 0.7% NACL 1,000 MG/100 ML BAG IV SCH (20:18)
[2024-02-02] MEDS: ASPIRIN 81 MG ECTAB PO SCH (20:19)
[2024-02-02] MEDS: DOCUSATE SODIUM 100 MG CAP PO SCH (20:19)
[2024-02-02] MEDS: SENNA 8.6 MG TAB PO SCH (20:20)
[2024-02-02] MEDS: KETOROLAC 30 MG/ML VIAL IV SCH (20:20)
[2024-02-02] MEDS ORDERED: SENNA 8.6 MG TAB PO SCH (21:00)
[2024-02-02] MEDS: traMADol HCL 50 MG TABLET PO PRN (22:32)
[2024-02-03 06:33] LABS: Calcium 8.6 mg/dl (8.6-10.3); Creatinine Clr Calc Pharmacy 86.5 ml/min; Est GFR (African American) 83.6 ml/min; Est GFR (Non-African American) 72.2 ml/min; Potassium 4.1 mmol/L (3.5-5.1)
[2024-02-03 06:41] LABS: Basophils # (auto) 0.03 K/uL (0.00-0.20); Basophils % (auto) 0.3 %; Eosinophils # (auto) 0.01 K/uL (0.00-0.50); Eosinophils % (auto) 0.1 %; Hemoglobin 13.3 g/dl (14.0-18.0); Immature Granulocytes # (auto) 0.06 K/uL (0.01-0.20); Immature Granulocytes % (auto) 0.5 %; Lymphocytes # (auto) 1.05 K/uL (1.20-3.40); Lymphocytes % (auto) 9.1 %; Mean Corpuscular Hemoglobin 33.3 pg (25.0-34.0); Mean Platelet Volume 9.5 fL (9.4-12.4); Monocytes # (auto) 1.03 K/uL (0.11-0.59); Monocytes % (auto) 8.9 %; Neutrophils # (auto) 9.41 K/uL (1.40-6.50); Neutrophils % (auto) 81.1 %; Platelet Count 190 K/uL (130-400); RDW Coefficient of Variation 12.7 % (11.5-14.5); RDW Standard Deviation 43.5 fL (36.4-46.3); White Blood Count 11.59 K/ul (4.8-10.8)
[2024-02-03] MEDS: MULTIVITAMIN TAB PO SCH (08:30)
[2024-02-03] MEDS: dexAMETHasone 10 MG in SYRINGE 0 ML IV SCH (08:33)
--- NOTE | 2024-02-03 09:58 | Orthopedic Progress Note ---
Date of Service February 03, 2024 Assessment & Plan (1) Status post right hip replacement: Overall, he is doing quite well today with good pain control to the right hip. He will work with physical therapy later this morning to work on ambulation and range of motion exercises. He is on aspirin for DVT prophylaxis. He can be discharged home later this morning pending physical therapy evaluation. He will follow-up with Dr. Navarro in 2 weeks for postoperative management Subjective Adis Anderson was seen and evaluated this morning resting comfortably in no apparent distress. He notes that he has good pain control to the right hip. He has been up and out of bed with no significant issues. He has yet to be seen by physical therapy this morning. He denies any other concerns today. Review of Systems All systems reviewed & are unremarkable except as noted in HPI & below. Physical Exam . On physical examination of the right hip, dressings are clean, dry, and intact. His leg is out in full extension. He has active plantarflexion dorsiflexion to the right ankle. +2 DP and PT pulses. Less than 2-second capillary refill. Normal sensation. Neurovascular intact. Results & Data Results & Data Laboratory Results . Diagnostic Findings . Postoperative x-rays of the right hip show prosthesis to be in anatomical alignment with no signs of fracture complication or loosening. PG Care Time/CCT Total # of Minutes Spent Total Time Spent with Patient: Total time spent is greater than 50% in coordination of care (as documented) at patient's floor/unit and/or counseling patient: Coding Level of Care Code 60481 Post Operative Follow-Up Diagnoses Status post right hip replacement Z96.641
--- NOTE | 2024-02-03 09:59 | Discharge Summary ---
Date of Service February 03, 2024 Principal Diagnosis Same as "Discharge Diagnosis" noted below under Discharge Instructions. Discharge Exam . On physical examination of the right hip, dressings are clean, dry, and intact. His leg is out in full extension. He has active plantarflexion dorsiflexion to the right ankle. +2 DP and PT pulses. Less than 2-second capillary refill. Normal sensation. Neurovascular intact. Discharge Data Procedures Performed Operation Date: 02/02/24 10:40 Actual Procedures p Right Total Hip Arthroplasty(Right) - Star Navarro MD Hospital Course (1) Status post right hip replacement: On February 02, 2024 Justin arrived at [facility] and underwent a right total hip arthroplasty performed by Dr. Navarro with no complications. He had a spinal anesthetic. Postoperatively, he was started on aspirin for DVT prophylaxis and transferred to the general orthopedic floor in stable condition. His hospital course was uneventful. On postoperative day #1, his vital signs were stable and his pain was well-controlled. He participated well with physical therapy work on ambulation and range of motion exercises. He was then discharged home in stable condition. He will follow-up in [address] Navarro for postoperative management. PG Care Time/CCT Total # of Minutes Spent Total Time Spent with Patient: Total time spent is greater than 50% in coordination of care (as documented) at patient's floor/unit and/or counseling patient: Discharge Plan Discharge Items Patient Disposition: Home - Home Health Services Reason For Visit: Right Hip Degenerative Joint Disease Discharge Diagnosis: Right Hip Replacement Activity: Per Instructions section Activity Comment: Obey/Follow hip precautions at all times. Weightbearing: Full weightbearing Weightbearing Comment: Weightbear as tolerated obeying hip precautions at all times. Non-emergency contact: Surgeon Call non-emergency contact if: you have any medication questions Follow-up/Referrals: Rubin Adames MD [Primary Care Provider] - Diet: Regular Addtl Attending Provider Instructions: ACTIVITY RECOMMENDATIONS: Physical Therapy: * Aggressive physical therapy is not usually needed. You will learn to take care of yourself safely and walk. * Follow the "Hip Precautions Instructions." * In some cases, the social security assessor at the hospital will arrange to have a therapist come to your house for the first couple of weeks to help you learn these skills. * You need to practice on your own or with the help of a family member as needed. * When you learn these skills, most of the therapy can be done on your own. Home Exercise: * You were shown a series of exercises in the hospital. Do these exercises three to four times each day including the exercises you were shown in physical therapy. Walking: * Get up and walk several times each day. For the first four weeks, try not to stand or walk for more than one hour at a time. If you do stand or walk for more than one hour, you will not hurt anything, but your leg will likely swell. * As you feel comfortable, you may change from the walker or crutches to a cane and then to independent walking. MEDICATIONS: New Medicine: * You will likely be taking one or more of these medicines: 1. Tramadol - Take, as directed, when you need it, every six hours to control your pain. 2. Aspirin - Thins your blood to lessen the chance of forming a blood clot. * The most common side effects of pain medicine and iron are nausea and constipation. If nausea or constipation is too much of a problem or if you have any questions about your new medicines or doses, call [facility] at [phone]. We will try to help you manage these issues. "VERY IMPORTANT TO READ AND REVIEW" Pain: * The immediate post-operative period after hip replacement surgery is often quite painful. * You are given a prescription for pain medicine. You should take it, as directed, when you need it, especially before physical therapy and before going to bed. Pain that interferes with sleep is very common and can last several months. * You will likely need pain medicine for the first two to four weeks. It will not stop all of the pain. The pain will lessen and as you feel better, you may change to milder pain medicine such as Tylenol. * The most common side effects of pain medicine are nausea and constipation, so don't take more than you need. SPECIAL CARE INSTRUCTIONS: TEDs/Elastic Stockings: * The white elastic stockings help limit swelling and prevent blood clots from forming in your legs. The more you wear them, the more they work. * Wear them for six weeks. Incision Site Care: * Remove dressing postoperative day 2 and then shower. Keep direct shower pressure off the incision site. * After showering, cover christy with dry gauze and change daily or more frequently if the dressing is getting saturated with drainage. * May completely stop using bandage if wound is dry and no drainage * Christy are removed between 2 and 3 weeks post-op. If your follow-up appointment is made before 2 weeks, please have your appointment re- scheduled. It is too early to remove the christy. Prevention of Infection: * Take antibiotics one hour before any dental cleaning, dental work, urological procedure, gastrointestinal procedure or any invasive surgery in order to prevent your new joint from getting infected. * You may get the antibiotics from the doctor performing the procedure or you may call our office at before and we will call in a prescription to the pharmacy of your choice. Things to Watch For: * Drainage from the incision site that occurs more than one week after your surgery. * Severely increased leg pain or swelling. * Increased redness at the incision site. * Fever above 102 degrees Fahrenheit. * Unusual chest pain or shortness of breath. * Unusual pain or burning with urination. Call [facility] at with any of the above problems or if you have any questions about your medicines or recovery. FOLLOW UP VISIT: Make an appointment to see your doctor for approximately two weeks after surgery for a progress check and staple removal by calling the office at . Pending Studies at Discharge: No Stand-Alone Forms: [facility], Smoking Cessation Medications and DC Order Prescriptions: Continued sennosides [Senokot] 8.6 mg tablet 8.6 mg PO BID 14 Days Qty: 28 0RF Rx Instructions: Take two times a day to prevent/treat constipation aspirin [Rosy Low Dose Aspirin] 81 mg tablet,delayed release (DR/EC) 81 mg PO BID 45 Days Qty: 90 0RF Rx Instructions: Take to prevent blood clots. tramadol 50 mg tablet 50 - 100 mg PO Q6 PRN (Reason: pain) Qty: 40 0RF Rx Instructions: Take as needed for pain acetaminophen [Tylenol Extra Strength] 500 mg tablet 1,000 mg PO TID 30 Days Qty: 180 0RF Rx Instructions: Take 3 times per day to lessen pain. ketorolac 10 mg tablet 10 mg PO Q6 5 Days Qty: 20 0RF Rx Instructions: Take 4 times per day with food for 5 days to lessen pain and swelling. tamsulosin [Flomax] 0.4 mg capsule 0.4 mg PO DAILY PRN (Reason: Prevent urinary retention) Qty: 7 0RF Rx Instructions: Begin night BEFORE surgery to prevent urinary retention ondansetron 4 mg tablet,disintegrating 4 mg PO Q8 PRN (Reason: nausea) Qty: 20 1RF Rx Instructions: Take as needed for nausea zolpidem 5 mg tablet 5 mg PO HS PRN (Reason: Sleep) Discontinued ibuprofen 200 mg Tablet 400 mg PO DAILY PRN (Reason: Pain) Admission Data Admit Date/Time: 02/02/24 12:47 Attending Provider: Star Navarro Admit Provider: Star Navarro Primary Care Provider: Rubin Adames Other Providers: [facility]
== END 2024-02-03 10:56 | disposition home health service (06) ==
LOC: ASU 08:49 → 3E 08:49

== ENCOUNTER 2024-03-09 09:08 | Inpatient (IN) ==
[2024-03-09 11:20] LABS: Basophils # (auto) 0.05 K/uL (0.00-0.20); Basophils % (auto) 0.6 %; Eosinophils # (auto) 0.24 K/uL (0.00-0.50); Eosinophils % (auto) 2.7 %; Hematocrit (blood only) 43.2 % (42.0-52.0); Hemoglobin 14.8 g/dl (14.0-18.0); Immature Granulocytes # (auto) 0.03 K/uL (0.01-0.20); Immature Granulocytes % (auto) 0.3 %; Lymphocytes # (auto) 1.27 K/uL (1.20-3.40); Lymphocytes % (auto) 14.2 %; Mean Corpuscular Hemoglobin 32.1 pg (25.0-34.0); Mean Corpuscular Hgb Conc 34.3 g/dL (32.0-36.0); Mean Corpuscular Volume 93.7 fL (80.0-100.0); Mean Platelet Volume 9.4 fL (9.4-12.4); Monocytes # (auto) 0.72 K/uL (0.11-0.59); Monocytes % (auto) 8.1 %; Neutrophils # (auto) 6.63 K/uL (1.40-6.50); Neutrophils % (auto) 74.1 %; Platelet Count 180 K/uL (130-400); RDW Coefficient of Variation 12.9 % (11.5-14.5); RDW Standard Deviation 43.9 fL (36.4-46.3); Red Blood Count 4.61 M/uL (4.70-6.10); White Blood Count 8.94 K/ul (4.8-10.8)
[2024-03-09 11:33] LABS: Albumin Globulin Ratio 1.5 (0.9-2); Albumin Level 4.4 gm/dl (3.4-5.0); BUN Creatinine Ratio 10.2 (10-20); Calcium 9.8 mg/dl (8.6-10.3); Est GFR (African American) 94.1 ml/min; Est GFR (Non-African American) 81.2 ml/min; Potassium 4.3 mmol/L (3.5-5.1); Total Protein 7.4 gm/dl (6.0-8.3)
[2024-03-09 11:40] LABS: Troponin I High Sensitivity 6.8 pg/ml (0-20)
--- NOTE | 2024-03-09 11:43 | XRay Report ---
XR chest 1V not portable HISTORY: 64 years-old Male Chest pain, nonspecific COMPARISON: 01/08/2024 TECHNIQUE: PA view of the chest FINDINGS: Cardiomediastinal and hilar silhouettes are within normal limits. No pneumothorax, pleural effusion o r airspace consolidation. The bones appear grossly intact. IMPRESSION: No acute process. ACT 112: Negative or not required by law. The above report was generated using voice recognition software. It may contain grammatical, syntax o r spelling errors. Electronically signed by: Dar Chang M.D. 03/09/2024 11:42 AM
[2024-03-09 11:44] LABS: INR 0.9 (0.9-1.1); Partial Thromboplastin Ratio 0.9; Partial Thromboplastin Time 26 Seconds (21-31); Prothrombin Time 10.4 Seconds (9.0-12.0)
--- NOTE | 2024-03-09 16:19 | Emergency Department Note ---
Impression & Plan Dizziness, Status post right hip replacement, Abnormal EKG ED Provider Note NAME: ELENI KILPATRICK AGE: 64 SEX: M : 1960 ARRIVES VIA: Walk-In INFORMANT: Patient ED PROVIDER(S): Bal Pugh DO CHIEF COMPLAINT: dizzy HPI: Patient is a 64-year-old male with a past medical history of a right hip replacement performed about 10 days ago. He notes he got up out of bed and he had 2 episodes lasting about 5 seconds apiece where the whole room was spinning. Later around 930 he bent over and the whole room did the same thing and was spinning again. He notes this lasted again for about 5 minutes. He denies any change or loss of vision. No chest pain or shortness of breath. No nausea, vomiting, or diarrhea. No dysuria, urgency, or frequency. He notes when it occurs if he stays still it resolves. He denies any chest pain or shortness of breath. No belly pain. No nausea, vomiting, or diarrhea. No dysuria, urgency, or frequency. No swelling of his legs. No calf pain. ADDITIONAL HISTORY OBTAINED: Per HPI Chronic Medical/Social Conditions Affecting Care: Per HPI PAST MEDICAL HISTORY:See Below PAST SURGICAL HISTORY:See Below FAMILY HISTORY:See Below SOCIAL HISTORY:See Below HOME MEDICATIONS:See Below ALLERGIES:See Below VITALS:See Below PHYSICAL EXAMINATION: GENERAL: Sitting up in bed, alert, well appearing, well nourished, no distress, non-toxic EYE EXAM: normal conjunctiva. PERRL and EOM's intact. OROPHARYNX: no exudate, no erythema, lips, buccal mucosa, and tongue normal and mucous membranes are moist NECK: supple, no nuchal rigidity, no adenopathy, non-tender LUNGS: Clear to auscultation. Normal chest wall mechanics HEART: no murmurs, S1 normal and S2 normal ABDOMEN: abdomen soft, non-tender, normo-active bowel sounds, no masses, no rebound or guarding. BACK: Back is symmetrical on inspection and there is no deformity, no midline tenderness, no CVA tenderness. SKIN: no rashes and no bruising UPPER EXTREMITIES: upper extremities are grossly normal. LOWER EXTREMITIES: No pitting edema. NEURO EXAM: Normal sensorium, cranial nerves II-XII intact, normal speech, no weakness of arms, no weakness of legs. No drift. Finger to nose intact. Gross sensation intact. [id number] intact. Rapid alternating movements of upper extremities intact MEDICAL DECISION MAKING: Patient is a 64-year-old male who presents ER for above-stated complaint. IV was established blood work was obtained. Labs show no significant leukocytosis or anemia. INR unremarkable. BMP along with LFTs bilirubin was unremarkable. Troponins were negative x 2. Viral panel was negative. He is completely neurologically intact on my exam. He did just recently have his right hip operated on he has T wave inversions on his EKG which are new in comparison to his old over a year ago. Discussed with our care managers in regards to obtaining an EKG in epic performed recently for surgery and they were unable to find anything. Following this I discussed the case with Dr. Welch from cardiology. Recommended bring the patient in. Discussed the case with Dr. Moon from [facility] hospitalist service. Patient was currently asymptomatic discussed with the hospitalist admitted for further workup. Consults/Care Managements Discussions: Per [facility] Triage Nursing notes reviewed. Limited review of prior medical records performed Vital Signs: reviewed and remarkable for HTN Differential diagnosis: Differential diagnosis includes etiologies such as benign positional vertigo, dehydration, hypovolemia, anemia, tumor, infection, hypoglycemia, electrolyte abnormalities, cardiac sources, intracerebral event, toxicologic, neurological, as well as others were entertained. ER treatment provided: See below Diagnostics interpreted by me include EKG and cardiac monitoring as listed below: -Cardiac Monitoring: An order was placed for continuous cardiac monitoring. The monitor shows a rate of 80 with sinus rhythm. -ECG: Sinus rhythm rate of 59 Left axis T wave inversion in V2 through V5 T wave inversions are new from previous in May -Laboratory studies:Interpreted by me as stated above in MDM and shown below. Imaging studies: Xrays: As interpreted by me: Portable AP upright 1 view of the chest shows no focal infiltrate CTs show: CT angio of the head and chest were unremarkable Procedures:none Critical Care: None Past Med/Surg History Medical History (Updated 03/09/24 @ 21:41 by Bal Pugh DO) Arthritis of right hip Right hip pain Effusion, left knee Localized osteoarthritis of left knee History of kidney stones passed on own Obesity History of COVID-2019- mild symptoms, denies hospitalization, resolved Sleep apnea CPAP (compliant) Diverticulitis 2003 Surgical History (Updated 03/09/24 @ 21:41 by Bal Pugh, DO) History of partial knee replacement Left unicompartment knee arthroplasty (02/09/2023): SAB (x2 attempts), L3-4 + regional at [facility] History of carpal tunnel release of both wrists History of colonoscopy History of appendectomy History of colostomy reversal History of tooth extraction History of sinus surgery History of colostomy 2003- subsequent reversal History of resection of large bowel 2003 Family History Other No family history of adverse response to anesthesia Social History Smoking Status: Former smoker Tobacco Type: Cigarettes Second Hand Exposure: No; Do You Dip or Chew Tobacco: No; Hx Alcohol Use: Yes Alcohol type: beer Hx Substance Use: No Preferred Language: Kiswahili Communication Ability: Effective Insurance Actuary Required: No Beliefs That Will Affect Care: None marital status: Current Living Situation: Spouse current occupational status: employed Feels Safe at Home: Yes Safety Concerns: Feels Safe At This Time Assistive Devices: CPAP Allergies Allergies Allergy/AdvReac Type Severity Reaction Status Date / Time pollen extracts Allergy Mild Sneezing, Verified 02/02/24 09:41 watery eyes amoxicillin AdvReac Mild GI upset Verified 02/02/24 09:41 Dust Allergy Mild Sneezing, Uncoded 02/02/24 09:41 watery eyes Home Meds Home Medications Medication Instructions Recorded Confirmed zolpidem 5 mg tablet 5 mg PO HS PRN Sleep 04/17/21 03/09/24 Previous Rx's Medication Instructions Recorded aspirin 81 mg tablet,delayed 81 mg PO BID 45 days #90 tabs 01/31/24 release (Rosy Low Dose Aspirin) Results & Data (ED) Vital Signs Vital Signs - 24 hr 03/09/24 09:17 03/09/24 11:21 03/09/24 15:45 Temperature 36.5 C 36.6 C Temperature Source Temporal Artery Scan Skin Pulse Rate 71 Pulse Rate [Left Finger] 83 71 Pulse Rate from SpO2 Sensor Pulse Rhythm [Left Finger] Regular Pulse Strength [Left Finger] Normal Respiratory Rate 19 16 18 Respiratory Effort / Characteristics Non-Labored Spontaneous Non-Labored Respiratory Depth Normal Normal Respiratory Pattern Regular Regular Blood Pressure 143/84 H Blood Pressure [Left Arm] 159/90 H 151/85 H Blood Pressure Mean 103 Blood Pressure Mean [Left Arm] 113 107 Blood Pressure Position [Left Arm] Sitting Pulse Oximetry 98 99 98 Oxygen Delivery Method Room Air Room Air Room Air Sepsis Recent Fever Within 48 Hours No Sepsis New/Unexplained Change in Mental Status N/A Sepsis Action Taken by Nursing No Action Required 03/09/24 15:53 03/09/24 17:22 03/09/24 17:30 Temperature Temperature Source Pulse Rate 64 62 Pulse Rate [Left Finger] 82 Pulse Rate from SpO2 Sensor 62 Pulse Rhythm [Left Finger] Pulse Strength [Left Finger] Respiratory Rate 16 15 Respiratory Effort / Characteristics Non-Labored Spontaneous Respiratory Depth Normal Respiratory Pattern Regular Blood Pressure 153/97 H Blood Pressure [Left Arm] 160/92 H Blood Pressure Mean 115 Blood Pressure Mean [Left Arm] 114 Blood Pressure Position [Left Arm] Pulse Oximetry 95 97 Oxygen Delivery Method Room Air Room Air Sepsis Recent Fever Within 48 Hours Sepsis New/Unexplained Change in Mental Status Sepsis Action Taken by Nursing 03/09/24 18:00 Temperature Temperature Source Pulse Rate 64 Pulse Rate [Left Finger] Pulse Rate from SpO2 Sensor 62 Pulse Rhythm [Left Finger] Pulse Strength [Left Finger] Respiratory Rate 12 Respiratory Effort / Characteristics Respiratory Depth Respiratory Pattern Blood Pressure 171/134 H Blood Pressure [Left Arm] Blood Pressure Mean 146 Blood Pressure Mean [Left Arm] Blood Pressure Position [Left Arm] Pulse Oximetry 98 Oxygen Delivery Method Room Air Sepsis Recent Fever Within 48 Hours Sepsis New/Unexplained Change in Mental Status Sepsis Action Taken by Nursing Laboratory Data 03/09/24 11:03 03/09/24 11:03 Lab Results 03/09/24 03/09/24 Range/Units 11:03 16:23 WBC 8.94 (4.8-10.8) K/ul RBC 4.61 L (4.70-6.10) M/uL Hgb 14.8 (14.0-18.0) g/dl Hct 43.2 (42.0-52.0) % MCV 93.7 (80.0-100.0) fL MCH 32.1 (25.0-34.0) pg MCHC 34.3 (32.0-36.0) g/dL RDW Std Deviation 43.9 (36.4-46.3) fL RDW Coeff of Edie 12.9 (11.5-14.5) % Plt Count 180 (130-400) K/uL MPV 9.4 (9.4-12.4) fL Immature Gran % (Auto) 0.3 % Neut % (Auto) 74.1 % Lymph % (Auto) 14.2 % [place] % (Auto) 8.1 % Eos % (Auto) 2.7 % Baso % (Auto) 0.6 % Neut # (Auto) 6.63 H (1.40-6.50) K/uL Lymph # (Auto) 1.27 (1.20-3.40) K/uL [place] # (Auto) 0.72 H (0.11-0.59) K/uL Eos # (Auto) 0.24 (0.00-0.50) K/uL Baso # (Auto) 0.05 (0.00-0.20) K/uL Immature Gran # (Auto) 0.03 (0.01-0.20) K/uL PT 10.4 (9.0-12.0) Seconds INR 0.9 (0.9-1.1) APTT 26 (21-31) Seconds PTT Ratio 0.9 Sodium 137 (136-145) mmol/L Potassium 4.3 (3.5-5.1) mmol/L Chloride 106 (98-107) mmol/L Carbon Dioxide 25 (21-32) mmol/L Anion Gap 6 (3-11) BUN 10 (6-23) mg/dl Creatinine 0.98 (0.6-1.4) mg/dl Est Cr Clr Drug Dosing 95.0 ml/min Est GFR ( Amer) 94.1 ml/min Est GFR (Non-Af Amer) 81.2 ml/min BUN/Creatinine Ratio 10.2 (10-20) Glucose 102 H (70-99(Fasting)) mg/dl Calcium 9.8 (8.6-10.3) mg/dl Total Bilirubin 1.0 (0.2-1.0) mg/dl AST 19 (13-39) U/L ALT 19 (7-52) U/L Alkaline Phosphatase 97 (34-104) U/L Troponin I High Sens 6.8 7.6 (0-20) pg/ml Total Protein 7.4 (6.0-8.3) gm/dl Albumin 4.4 (3.4-5.0) gm/dl Globulin 3.0 (2.5-4.0) gm/dl Albumin/Globulin Ratio 1.5 (0.9-2) Administered Medications Discontinued Medications Ioversol (Optiray 320 100ml) 115 ml IV ONCE ONE Stop: 03/09/24 16:56 Last Admin: 03/09/24 16:55 Dose: 115 ml Documented By: PLW Imaging Data Radiologist's Impression: Chest X-Ray 03/09/24 09:23 XR chest 1V not portable HISTORY: 64 years-old Male Chest pain, nonspecific COMPARISON: 01/08/2024 TECHNIQUE: PA view of the chest FINDINGS: Cardiomediastinal and hilar silhouettes are within normal limits. No pneumothorax, pleural effusion or airspace consolidation. The bones appear grossly intact. IMPRESSION: No acute process. ACT 112: Negative or not required by law. The above report was generated using voice recognition software. It may contain grammatical, syntax or spelling errors. Electronically signed by: Dar Chang M.D. 03/09/2024 11:42 AM Chest CTA 03/09/24 16:19 CHEST CTA for PULMONARY ARTERIES CT DOSE: HISTORY: EKG changes recent surgery and dizzy TECHNIQUE: Multiaxial CT images of the chest were performed following the intravenous administration of contrast to evaluate the pulmonary arteries. 3D/Maximal intensity projection images were also obtained. Sagittal and coronal reformations were also reviewed. A dose lowering technique was utilized adhering to the principles of ALARA. COMPARISON STUDY: None. FINDINGS: Respiratory motion artifact results in nondiagnostic evaluation of the bilateral lower lobe subsegmental pulmonary arteries. Otherwise, the remaining pulmonary arteries show no filling defects to suggest a pulmonary embolus. The heart is normal in size. Normal caliber thoracic aorta with no evidence for a dissection. Normal thyroid gland. Limited views of the upper abdomen demonstrate a normal spleen and adrenal glands. There is a 1.1 cm hypodense lesion within the right hepatic lobe. This is indeterminate but favors a benign lesion. Normal esophagus. No mediastinal or hilar lymphadenopathy. Moderate coronary artery calcifications are noted. No acute fractures identified. The central airways are patent. No pneumothorax. Mild emphysema is noted. Suboptimal evaluation of the lung bases due to the respiratory motion artifact. No focal lung consolidations to suggest a pneumonia. No evidence for pulmonary edema. IMPRESSION: 1. No evidence for a pulmonary embolus. 2. Mild emphysema. 3. No focal lung consolidations to suggest a pneumonia. 4. Moderate coronary artery calcifications. ACT 112: Negative or not required by law. Electronically signed by: Wilfrid Valdez M.D. 03/09/2024 5:10 PM Head CTA 03/09/24 16:19 HEAD CTA HISTORY: dizzy TECHNIQUE: Multiaxial CT images of the head were performed both before and after the intravenous administration of contrast to evaluate the major cerebral vessels. 3D/MIP images were also obtained. Sagittal and coronal reformats were reviewed. A dose lowering technique was utilized adhering to the principles of ALARA. COMPARISON: None. FINDINGS: Mild mucosal thickening within the ethmoid air cells and sphenoid sinuses. The mastoid air cells are clear. The calvarium and skull base are intact. The major dural venous sinuses are patent. There is no mass, hematoma, midline shift, or acute infarct. Visualized intracranial internal carotid arteries, distal vertebral arteries, and basilar artery are widely patent. There is no significant stenosis, occlusion, or aneurysm seen within the bilateral ACAs, MCAs, or clinical business analyst. IMPRESSION: 1. No acute intracranial abnormality. 2. No significant stenosis, occlusion, or aneurysm within the [place]. ACT 112: Negative or not required by law. Electronically signed by: Wilfrid Valdez M.D. 03/09/2024 5:15 PM Discharge Plan Visit Data Chief Complaint: Dizziness Stated Complaint: DIZZY SPELLS, ROOM SPINNING, UNSTEADY, NAUSEA ED Provider: Bal Pugh Discharge Problem: Dizziness, Status post right hip replacement, Abnormal EKG Patient Disposition: Admitted As Inpatient Discharge Instructions Interventions: ED Discharge Assessment Last Done: 03/09/24 20:32
--- NOTE | 2024-03-09 16:27 | Electrocardiogram Report ---
Test Reason : Blood Pressure : / mmHG Vent. Rate : 059 BPM Atrial Rate : 059 BPM P-R Int : 130 ms QRS Dur : 116 ms QT Int : 416 ms P-R-T Axes : 059 -54 114 degrees QTc Int : 411 ms Sinus bradycardia Left anterior fascicular block Minimal voltage criteria for LVH, may be normal variant T wave abnormality, consider anterior ischemia Abnormal ECG When compared with ECG of 22-MAY-2023 08:20, Vent. rate has decreased BY 36 BPM T wave inversion now evident in Anterior leads Confirmed by Maico Garcia ([id number]) on 03/09/2024 4:26:55 PM Referred By: Confirmed By:Maico Garcia
[2024-03-09] MEDS: OPTIRAY 320 100ml IV ONE (16:55)
--- NOTE | 2024-03-09 17:13 | CT Scan Report ---
CHEST CTA for PULMONARY ARTERIES CT DOSE: HISTORY: EKG changes recent surgery and dizzy TECHNIQUE: Multiaxial CT images of the chest were performed following the intravenous administration of contrast to evaluate the pulmonary arteries. 3D/Maximal intensity projection images were also obta ined. Sagittal and coronal reformations were also reviewed. A dose lowering technique was utilized a dhering to the principles of ALARA. COMPARISON STUDY: None. FINDINGS: Respiratory motion artifact results in nondiagnostic evaluation of the bilateral lower lobe subsegmental pulmonary arteries. Otherwise, the remaining pulmonary arteries show no filling defects to suggest a pulmonary embolus. The heart is normal in size. Normal caliber thoracic aorta with no e vidence for a dissection. Normal thyroid gland. Limited views of the upper abdomen demonstrate a norm al spleen and adrenal glands. There is a 1.1 cm hypodense lesion within the right hepatic lobe. This is indeterminate but favors a benign lesion. Normal esophagus. No mediastinal or hilar lymphadenopath y. Moderate coronary artery calcifications are noted. No acute fractures identified. The central airw ays are patent. No pneumothorax. Mild emphysema is noted. Suboptimal evaluation of the lung bases due to the respiratory motion artifact. No focal lung consolidations to suggest a pneumonia. No evidence for pulmonary edema. IMPRESSION: 1. No evidence for a pulmonary embolus. 2. Mild emphysema. 3. No focal lung consolidations to suggest a pneumonia. 4. Moderate coronary artery calcifications. ACT 112: Negative or not required by law. Electronically signed by: Wilfrid Valdez M.D. 03/09/2024 5:10 PM
--- NOTE | 2024-03-09 17:18 | CT Scan Report ---
HEAD CTA HISTORY: dizzy TECHNIQUE: Multiaxial CT images of the head were performed both before and after the intravenous admi nistration of contrast to evaluate the major cerebral vessels. 3D/MIP images were also obtained. Sag ittal and coronal reformats were reviewed. A dose lowering technique was utilized adhering to the gillian [place]. COMPARISON: None. FINDINGS: Mild mucosal thickening within the ethmoid air cells and sphenoid sinuses. The mastoid air cells are clear. The calvarium and skull base are intact. The major dural venous sinuses are patent. There is no mass, hematoma, midline shift, or acute infarct. Visualized intracranial internal carotid arteries, distal vertebral arteries, and basilar artery are widely patent. There is no significant s tenosis, occlusion, or aneurysm seen within the bilateral ACAs, MCAs, or primer waterproofing machine adjuster. IMPRESSION: 1. No acute intracranial abnormality. 2. No significant stenosis, occlusion, or aneurysm within the [place]. ACT 112: Negative or not required by law. Electronically signed by: Wilfrid Valdez M.D. 03/09/2024 5:15 PM
--- NOTE | 2024-03-09 18:20 | History & Physical Report ---
Date of Service March 09, 2024 Assessment & Plan (1) Dizziness: (2) Abnormal EKG: (3) Status post right hip replacement: Plan Mr. Patiño is a 64 year old gentleman with past medical history remarkable for for dyslipidemia, EMILIANO on CPAP, DDD, obesity, and recent right hip arthroplasty 02/02/2024 presented to [facility] ED due to dizziness. Episodes seemed short-lived and occurred laying down, and while standing--described as the "room spinning." Not able to reproduce symptoms on exam. Not clear if dizziness related to sinus issues and EKG findings incidental, or if perhaps arrhytmia (noted sinus jitendra episodes in review of VS?) contributed to symptoms. #Dizziness CTA negative, no stenosis noted No reproducible on exam Biofire and ua ordered to r/o infectious causes potentially Flonase for congestion No WBC, monitor fever curve -Admit med/tele -Orthostatic VS -Monitor on tele -Consider MRI if recurrence -Consider OP Zio patch #Abnormal EKG, TWI #Moderate Coronary Artery Calcifications on imaging -Lipid panel in am, A1C -Repeat EKG -Tropnin negative x 2 Continue ASA daily given CAD per imaging ECHO Monitor on tele -Cards consult #s/p right hip arthroplasty Hold ASA BID, start lovenox for DVT ppx #EMILIANO Continue home CPAP #Obese BMI 35.1, briefly discussed lifestyle modifications, will continue to auto travel counselor while admitted #DDD Tylenol prn, hold NSAIDS, tramadol for severe pain prn DVT lovenox Admit med tele Admission and Anticipated Discharge Date Admission Date: Time spent evaluating patient, direct bedside care, chart review, placing orders, interpretation of diagnostic studies, discussion with consultants, patient, and family members, as well as other required patient management activities is 60 minutes. History of Present Illness Chief Complaint: Dizziness Primary Care Provider: Rubin Adames MD Mr. Patiño is a 64 year old gentleman with past medical history remarkable for f dyslipidemia, EMILIANO on CPAP, DDD, obesity, and recent right hip arthroplasty 02/02/2024 presented to [facility] ED due to dizziness. Patient reports first event happened laying down after stretching and turned head with an episode of "room spinning" that last for 3 seconds. Second episode similar to first episode, but felt fine after getting up and proceeded to go to work. 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 No further episodes since presenting to the ED. Patient states that he has been battling some sinus congestion. He denies fevers or chills or other acute concerns. He denies any history of palpitations, orthopnea, or edema. He denies an exertional shortness of breath, but notes feeling a bit tired given recent hip procedure and trying to increase activity, noting deconditioning. Labs with troponin negative x 2 In the ED, vitals were notable for BP of 110-170s, HR of mostly in 60-70s and O2 sat high 90s on room air. Imaging revealed no carotid stenosis, chest CTA without embolus, noted moderate coronary artery calcifications EKG with new TWI noted, left anterior fasicular block ED interventions: Curbsided Cards who recommended admission given abnormal EKG Patient to be admitted to med/tele for further evaluation and management of dizziness and EKG changes. Allergies Allergy/AdvReac Type Severity Reaction Status Date / Time pollen extracts Allergy Mild Sneezing, Verified 02/02/24 09:41 watery eyes amoxicillin AdvReac Mild GI upset Verified 02/02/24 09:41 Dust Allergy Mild Sneezing, Uncoded 02/02/24 09:41 watery eyes Home Medications Medication Instructions Recorded Confirmed Type zolpidem 5 mg tablet 5 mg PO HS PRN Sleep 04/17/21 03/09/24 History aspirin 81 mg tablet,delayed 81 mg PO BID 45 days #90 tabs 01/31/24 03/09/24 Rx release (Rosy Low Dose Aspirin) Past Med/Surg History Medical History (Updated 03/09/24 @ 19:21 by Carissa Lagunas MD) Arthritis of right hip Right hip pain Effusion, left knee Localized osteoarthritis of left knee History of kidney stones passed on own Obesity History of COVID-2019- mild symptoms, denies hospitalization, resolved Sleep apnea CPAP (compliant) Diverticulitis 2003 Surgical History (Updated 02/08/24 @ 00:07 by Jorge Stroud) History of partial knee replacement Left unicompartment knee arthroplasty (02/09/2023): SAB (x2 attempts), L3-4 + regional at [facility] History of carpal tunnel release of both wrists History of colonoscopy History of appendectomy History of colostomy reversal History of tooth extraction History of sinus surgery History of colostomy 2004- subsequent reversal History of resection of large bowel 2003 Family History Other No family history of adverse response to anesthesia Social History Smoking Status: Never smoker Tobacco Type: Cigarettes Second Hand Exposure: No; Do You Dip or Chew Tobacco: No; Hx Alcohol Use: Yes Alcohol type: beer Hx Substance Use: No Preferred Language: Zimbabwean Communication Ability: Effective Miller Supervisor Required: No Beliefs That Will Affect Care: None marital status: Current Living Situation: Spouse current occupational status: employed Feels Safe at Home: Yes Assistive Devices: Cane, CPAP and Walker Review of Systems Review of Systems: Constitutional: (-) fever/chills, (-) recent loss of weight, (-) appetite changes, (-) night sweats. Head: (-) headache, (++) dizziness. Eye: (-) blurring of vision, (-) double vision, (-) redness. Ear: (-) hearing loss, (-) discharge, (++) vertigo--spinning Nose: (-) discharge, (-) bleeding, (++) congestion, (-) post nasal drip. Throat: (-) sore throat, (-) hoarseness of voice, (-) odynophagia. Cardiovascular: (-) chest pain, (-) palpitations, (-) syncope, (-) orthopnea, (- ) PND, (-) leg swelling. Respiratory: (-) shortness of breath, (-) cough, (-) wheezing, (-) hemoptysis. Neuro: (-) weakness in extremities, (-) numbness, (-) tingling, (-) tremor. Gastrointestinal: (-) belly pain, (-) belly distension, (-) nausea, (-) vomiting, (-) diarrhea, (-) constipation Genitourinary: (-) hematuria, (-) dysuria, (-) polyuria, (-) hesitancy, (-) frequency, (-) urinary incontinence. Musculoskeletal: (-) myalgia, (-) arthralgia. Skin: (-) rashes. Endocrine: (-) heat/cold intolerance. Physical Exam Physical Exam: GENERAL APPEARANCE: AxOx4, generally well-appearing male, sounds congested, no acute distress. HEENT: NC, AT. MMM. EOMI, clear conjunctiva, oropharynx clear. NECK: Supple without lymphadenopathy. No stiffness or restricted ROM. HEART: Normal rate and regular rhythm, normal S1/S1, no m/r/g LUNGS: CTAB, moving air well. No crackles or wheezes are heard. ABDOMEN: Soft, nontender, nondistended with good bowel sounds heard. EXTREMITIES: Without cyanosis, clubbing or edema. NEUROLOGICAL: Grossly nonfocal. Alert and oriented, moving all 4 extremities. CN not formally tested but appear grossly intact. Not able to reproduce dizzy episode, no nystagmus Skin: Warm and dry without any rash. Results & Data Results & Data Vital Signs (Past 12 Hours) Vital Signs Temp Pulse Pulse Resp BP BP Pulse Ox 03/09/24 17:30 62 15 153/97 H 97 03/09/24 17:22 64 03/09/24 15:53 82 16 160/92 H 95 03/09/24 15:45 36.6 C 71 18 151/85 H 98 03/09/24 11:21 83 16 159/90 H 99 03/09/24 09:17 36.5 C 71 19 143/84 H 98 O2 Del Method 03/09/24 17:30 Room Air 03/09/24 17:22 03/09/24 15:53 Room Air 03/09/24 15:45 Room Air 03/09/24 11:21 Room Air 03/09/24 09:17 Room Air Laboratory Results Short CBC 03/09/24 Range/Units 11:03 WBC 8.94 (4.8-10.8) K/ul Hgb 14.8 (14.0-18.0) g/dl Hct 43.2 (42.0-52.0) % Plt Count 180 (130-400) K/uL BMP 03/09/24 11:03 Sodium 137 Potassium 4.3 Chloride 106 Carbon Dioxide 25 BUN 10 Creatinine 0.98 Glucose 102 H Calcium 9.8 Liver Function 03/09/24 Range/Units 11:03 Total Bilirubin 1.0 (0.2-1.0) mg/dl AST 19 (13-39) U/L ALT 19 (7-52) U/L Alkaline Phosphatase 97 (34-104) U/L Albumin 4.4 (3.4-5.0) gm/dl Diagnostic Findings Chest X-Ray 03/09/24 09:23 XR chest 1V not portable HISTORY: 64 years-old Male Chest pain, nonspecific COMPARISON: 01/08/2024 TECHNIQUE: PA view of the chest FINDINGS: Cardiomediastinal and hilar silhouettes are within normal limits. No pneumothorax, pleural effusion or airspace consolidation. The bones appear grossly intact. IMPRESSION: No acute process. ACT 112: Negative or not required by law. The above report was generated using voice recognition software. It may contain grammatical, syntax or spelling errors. Electronically signed by: Dar Chang M.D. 03/09/2024 11:42 AM Chest CTA 03/09/24 16:19 CHEST CTA for PULMONARY ARTERIES CT DOSE: HISTORY: EKG changes recent surgery and dizzy TECHNIQUE: Multiaxial CT images of the chest were performed following the intravenous administration of contrast to evaluate the pulmonary arteries. 3D/Maximal intensity projection images were also obtained. Sagittal and coronal reformations were also reviewed. A dose lowering technique was utilized adhering to the principles of ALARA. COMPARISON STUDY: None. FINDINGS: Respiratory motion artifact results in nondiagnostic evaluation of the bilateral lower lobe subsegmental pulmonary arteries. Otherwise, the remaining pulmonary arteries show no filling defects to suggest a pulmonary embolus. The heart is normal in size. Normal caliber thoracic aorta with no evidence for a dissection. Normal thyroid gland. Limited views of the upper abdomen demonstrate a normal spleen and adrenal glands. There is a 1.1 cm hypodense lesion within the right hepatic lobe. This is indeterminate but favors a benign lesion. Normal esophagus. No mediastinal or hilar lymphadenopathy. Moderate coronary artery calcifications are noted. No acute fractures identified. The central airways are patent. No pneumothorax. Mild emphysema is noted. Suboptimal evaluation of the lung bases due to the respiratory motion artifact. No focal lung consolidations to suggest a pneumonia. No evidence for pulmonary edema. IMPRESSION: 1. No evidence for a pulmonary embolus. 2. Mild emphysema. 3. No focal lung consolidations to suggest a pneumonia. 4. Moderate coronary artery calcifications. ACT 112: Negative or not required by law. Electronically signed by: Wilfrid Valdez M.D. 03/09/2024 5:10 PM Head CTA 03/09/24 16:19 HEAD CTA HISTORY: dizzy TECHNIQUE: Multiaxial CT images of the head were performed both before and after the intravenous administration of contrast to evaluate the major cerebral vessels. 3D/MIP images were also obtained. Sagittal and coronal reformats were reviewed. A dose lowering technique was utilized adhering to the principles of ALARA. COMPARISON: None. FINDINGS: Mild mucosal thickening within the ethmoid air cells and sphenoid sinuses. The mastoid air cells are clear. The calvarium and skull base are inta ct. The major dural venous sinuses are patent. There is no mass, hematoma, midline shift, or acute infarct. Visualized intracranial internal carotid arteries, distal vertebral arteries, and basilar artery are widely patent. 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 IMPRESSION: 1. No acute intracranial abnormality. 2. No significant stenosis, occlusion, or aneurysm within the [place]. ACT 112: Negative or not required by law. Electronically signed by: Wilfrid Valdez M.D. 03/09/2024 5:15 PM Medications Administered Home Medications Medication Instructions Recorded Confirmed Last Taken zolpidem 5 mg tablet 5 mg PO HS PRN Sleep 04/17/21 03/09/24 02/01/24 21:00 aspirin 81 mg tablet,delayed 81 mg PO BID 45 days #90 tabs 01/31/24 03/09/24 Unknown release (Rosy Low Dose Aspirin) Code Status & VTE Plan VTE Prophylaxis Plan VTE Prophylaxis will be ordered: Yes
[2024-03-09] MEDS ORDERED: traMADol HCL 50 MG TABLET PO PRN (19:16)
[2024-03-09] MEDS ORDERED: DICLOFENAC SOD 1% GEL 100 GM TUBE EXT PRN (19:17)
[2024-03-09 20:40] LABS: Adenovirus PCR Not Detected (NotDetected); Bordetella parapertussis PCR Not Detected (NotDetected); Bordetella pertussis PCR Not Detected (NotDetected); Chlamydia pneumoniae PCR Not Detected (NotDetected); Coronavirus 229E PCR Not Detected (NotDetected); Coronavirus CoV-2 (COVID19)PCR Not Detected (NotDetected); Coronavirus HKU1 PCR Not Detected (NotDetected); Coronavirus NL63 PCR Not Detected (NotDetected); Coronavirus OC43PCR Not Detected (NotDetected); Human Metapneumovirus PCR Not Detected (NotDetected); Influenza A PCR Not Detected (NotDetected); Influenza B PCR Not Detected (NotDetected); Mycoplasma pneumoniae PCR Not Detected (NotDetected); Parainfluenza Virus 1 PCR Not Detected (NotDetected); Parainfluenza Virus 2 PCR Not Detected (NotDetected); Parainfluenza Virus 3 PCR Not Detected (NotDetected); Parainfluenza Virus 4 PCR Not Detected (NotDetected); Respiratory Syncytial VirusPCR Not Detected (NotDetected); Rhinovirus/Enterovirus PCR Not Detected (NotDetected)
[2024-03-09] MEDS ORDERED: NITROGLYCERIN SL 0.4 MG/TAB TAB SL PRN (21:21)
[2024-03-09] MEDS ORDERED: ACETAMINOPHEN 325 MG TAB PO PRN (21:21)
[2024-03-09] MEDS ORDERED: POLYETHYLENE (MIRALAX) 17 GM PACK PO PRN (21:21)
[2024-03-09] MEDS: ENOXAPARIN INJ 40 MG/0.4 ML SYR SQ SCH (22:37)
[2024-03-09] MEDS: FLUTICASONE PROPIONATE NA SPR 16 GM BTL SCH (22:49)
[2024-03-09] MEDS: ZOLPIDEM TARTRATE 5 MG TAB PO PRN (22:57)
[2024-03-10 06:56] LABS: Hematocrit (blood only) 38.9 % (42.0-52.0); Hemoglobin 13.8 g/dl (14.0-18.0); Mean Corpuscular Hemoglobin 32.6 pg (25.0-34.0); Mean Corpuscular Hgb Conc 35.5 g/dL (32.0-36.0); Mean Platelet Volume 9.4 fL (9.4-12.4); Platelet Count 188 K/uL (130-400); RDW Coefficient of Variation 12.9 % (11.5-14.5); RDW Standard Deviation 42.9 fL (36.4-46.3); Red Blood Count 4.23 M/uL (4.70-6.10); White Blood Count 6.99 K/ul (4.8-10.8)
[2024-03-10 07:27] LABS: Estimated Average Glucose 105 mg/dl; Hemoglobin A1C 5.3 % (4.5-5.6)
[2024-03-10 07:28] LABS: Calcium 9.6 mg/dl (8.6-10.3); Chol HDL Ratio 5.4 (0-5); Creatinine Clr Calc Pharmacy 100.2 ml/min; Est GFR (African American) 101.5 ml/min; Est GFR (Non-African American) 87.6 ml/min; Magnesium 2.1 mg/dl (1.7-2.4); Phosphorus 3.7 mg/dl (2.5-4.9); Potassium 4.1 mmol/L (3.5-5.1)
[2024-03-10] MEDS: ASPIRIN 81 MG ECTAB PO SCH (07:50)
[2024-03-10] MEDS: ONDANSETRON INJ 2 MG/ML 2 ML VIAL IV PRN (07:50)
[2024-03-10 09:25] LABS: Appearance Urine Clear (Clear); Bilirubin Urine Negative (Negative); Blood Urine Negative (Negative); Color Urine Yellow; Glucose Urine UA Negative (Negative); Ketones Urine Negative (Negative); Leukocyte Esterase Urine Negative (Negative); Nitrite Urine Negative (Negative); Protein Urine Negative (Negative); Specific Gravity Urine > 1.045 (1.000-1.030); Urobilinogen Urine Negative (Negative)
--- NOTE | 2024-03-10 11:17 | Cardiology Consultation ---
Date of Consultation March 10, 2024 Assessment & Plan (1) Abnormal EKG: (2) Coronary artery calcification seen on CAT scan: (3) Dizziness: Plan -Patient with T wave inversions in the precordial leads without any michelle symptoms of angina. He has risk factors for underlying coronary heart disease including age, male sex, history of smoking, mildly elevated cholesterol, and moderate diffuse coronary calcification noted on CT of the chest performed yesterday. -Will plan on repeating EKG. -The patient is about 6 weeks removed from his recent right hip replacement, but he has been walking well. He prefers to try an exercise based stress test if able. He walked in the hallway of the hospital unit and seemed to do well. If his exercise is limited due to orthopedic complaint, will convert to pharmacologic stress test as necessary. With regards to his dizziness, will assess his heart rate and blood pressure response to exercise. The character of his symptoms sound somewhat like vertigo. Blood pressure had been elevated on presentation, but improved. With LDL cholesterol 144 mg/dL, coronary artery calcifications, will likely plan on proceeding with statin therapy. History of Present Illness Attending Physician: Carissa Lagunas MD History of Present Illness Justin Patiño is a 64 year old male seen in cardiology consultation per the request of Dr Lagunas for the evaluation of dizziness and abnormal EKG. The patient had undergone previous knee replacement in January,. About 6 weeks ago in January, he had undergone right hip replacement. He has recovered well. He was in his normal state of health until yesterday. When he awoke and was still in bed he had a sensation that the room was spinning. This occurred 2 times before he actually got out of bed. He then felt better and went to work. He was bending over and when stood up he felt the sensation of the room spinning returned with associated dizziness. It ultimately passed and he went home. After ongoing consideration he presented to the emergency department. Heart rate and blood pressure were stable although observed in the emergency room and a CT angiogram was negative for pulmonary embolism. EKG performed yesterday at 10:59 AM revealed sinus bradycardia at 59 bpm with T wave inversions noted in leads V2 to V5 that were new compared to previous tr acings dating back to 2022. The patient denies any recent chest discomfort or shortness of breath. Telemetry overnight last night revealed sinus rhythm with rate while awake mostly in the 70s. There is a 4 beat run of complex ventricular ectopy this morning at 8:26 AM with no sustained symptoms. 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 Allergies Allergy/AdvReac Type Severity Reaction Status Date / Time pollen extracts Allergy Mild Sneezing, Verified 02/02/24 09:41 watery eyes amoxicillin AdvReac Mild GI upset Verified 02/02/24 09:41 Dust Allergy Mild Sneezing, Uncoded 02/02/24 09:41 watery eyes Home Medications Medication Instructions Recorded Confirmed Type zolpidem 5 mg tablet 5 mg PO HS PRN Sleep 04/17/21 03/09/24 History aspirin 81 mg tablet,delayed 81 mg PO BID 45 days #90 tabs 01/31/24 03/09/24 Rx release (Rosy Low Dose Aspirin) Patient History Medical History Arthritis of right hip Right hip pain Effusion, left knee Localized osteoarthritis of left knee History of kidney stones passed on own Obesity History of COVID-2019- mild symptoms, denies hospitalization, resolved Sleep apnea CPAP (compliant) Diverticulitis 2003 Surgical History History of partial knee replacement Left unicompartment knee arthroplasty (02/09/2023): SAB (x2 attempts), L3-4 + regional at [facility] History of carpal tunnel release of both wrists History of colonoscopy History of appendectomy History of colostomy reversal History of tooth extraction History of sinus surgery History of colostomy 2003- subsequent reversal History of resection of large bowel 2004 Family History Other No family history of adverse response to anesthesia Social History Smoking Status: Former smoker Tobacco Type: Cigarettes Second Hand Exposure: No; Do You Dip or Chew Tobacco: No; Hx Alcohol Use: Yes Alcohol type: beer Hx Substance Use: No Preferred Language: Telugu Communication Ability: Effective Logging 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 Required: No Beliefs That Will Affect Care: None marital status: Current Living Situation: Spouse current occupational status: employed Feels Safe at Home: Yes Safety Concerns: Feels Safe At This Time Assistive Devices: CPAP Review of Systems Review of Systems: All systems reviewed & are unremarkable except as noted in HPI & below Physical Exam Constitutional: WD/WN, vitals as above Eyes: PERRL, conjunctivae normal, anicteric sclerae Respiratory: normal respiratory effort, lungs clear to auscultation Chest (Breasts): normal inspection/palpation of breasts Gastrointestinal (Abdomen): normal bowel sounds, soft, nontender, no hepatosplenomegaly Neurologic: PERRL, EOMI, accommodation nl, no face palsy, no dysarthria Results & Data Vital Signs (Past 12 Hours) Vital Signs Temp Pulse Pulse Resp BP BP Pulse Ox 03/10/24 09:56 74 03/10/24 09:55 03/10/24 08:53 03/10/24 07:45 36.7 C 69 16 121/77 98 03/10/24 03:04 36 C L 77 16 121/72 97 03/09/24 23:40 64 03/09/24 23:12 36.6 C 65 16 157/96 H 137/89 96 O2 Del Method 03/10/24 09:56 03/10/24 09:55 Room Air 03/10/24 08:53 Room Air 03/10/24 07:45 Room Air 03/10/24 03:04 CPAP 03/09/24 23:40 03/09/24 23:12 Room Air Laboratory Results Cardiac Enzymes 03/09/24 03/09/24 Range/Units 11:03 16:23 AST 19 (13-39) U/L Troponin I High Sens 6.8 7.6 (0-20) pg/ml Coagulation 03/09/24 Range/Units 11:03 PT 10.4 (9.0-12.0) Seconds APTT 26 (21-31) Seconds Lipids 03/10/24 Range/Units 05:48 Triglycerides 192 H (0-150) mg/dl Cholesterol 223 H (0-200) mg/dl HDL Cholesterol 41 mg/dl Cholesterol/HDL Ratio 5.4 H (0-5) CBC 03/09/24 03/10/24 Range/Units 11:03 05:48 WBC 8.94 6.99 (4.8-10.8) K/ul RBC 4.61 L 4.23 L (4.70-6.10) M/uL Hgb 14.8 13.8 L (14.0-18.0) g/dl Hct 43.2 38.9 L (42.0-52.0) % Plt Count 180 188 (130-400) K/uL Neut # (Auto) 6.63 H (1.40-6.50) K/uL Lymph # (Auto) 1.27 (1.20-3.40) K/uL [place] # (Auto) 0.72 H (0.11-0.59) K/uL Eos # (Auto) 0.24 (0.00-0.50) K/uL Baso # (Auto) 0.05 (0.00-0.20) K/uL Comprehensive Metabolic Panel 03/09/24 03/10/24 Range/Units 11:03 05:48 Sodium 137 138 (136-145) mmol/L Potassium 4.3 4.1 (3.5-5.1) mmol/L Chloride 106 108 H (98-107) mmol/L Carbon Dioxide 25 22 (21-32) mmol/L BUN 10 11 (6-23) mg/dl Creatinine 0.98 0.92 (0.6-1.4) mg/dl Glucose 102 H 103 H (70-99(Fasting)) mg/dl Calcium 9.8 9.6 (8.6-10.3) mg/dl AST 19 (13-39) U/L ALT 19 (7-52) U/L Alkaline Phosphatase 97 (34-104) U/L Total Protein 7.4 (6.0-8.3) gm/dl Albumin 4.4 (3.4-5.0) gm/dl Lipid panel: 03/10/2024, triglycerides 93, total cholesterol 223, LDL 144, HDL 41 Viral respiratory panel was negative Intake and Output 03/09/24 03/10/24 03/10/24 22:59 06:59 14:59 Intake Total 250 / 250 Balance 250 / 250 Intake: Oral 250 / 250 Other: Other Intake Source sips Weight 108.9 kg Diagnostic Findings Transthoracic echocardiogram performed today and interpret independently: The study was technically adequate for the evaluation of the referral indication. The left ventricular wall motion was normal, normal LVEF in the range of 50 to 60%, no significant valvular disease Grade 1 diastolic dysfunction Summary of CTA chest: 1. No evidence for a pulmonary embolus. 2. Mild emphysema. 3. No focal lung consolidations to suggest a pneumonia. 4. Moderate coronary artery calcifications.
[2024-03-10] MEDS: ATROPINE SULFATE 0.1 MG/ML 10ML SYR IV ONE (12:51)
[2024-03-10] MEDS: DOBUTamine HCL 12.5 MG/ML 20 ML VIAL IV ONE (12:52)
[2024-03-10] MEDS: METOPROLOL TARTRATE 1 MG/ML VIAL IV ONE (12:52)
--- NOTE | 2024-03-10 12:59 | Communication Note ---
Date of Service: March 10, 2024 dobutamine stress echo , negative for ischemia. Question if dizziness due to vertigo, consider physical therapy evaluation for instruction with regards to Rashi maneuver Given findings of coronary calcification on CT angiogram, recommend ongoing treatment aspirin 81 mg, enteric-coated. He states he is already taking aspirin post orthopedic surgery, but I think it should be continued on a chronic basis. Given moderate LDL cholesterol elevation of 144 mg/dL, and coronary calcification I recommend atorvastatin 20 mg daily. Follow-up with PCP.
[2024-03-10] MEDS ORDERED: ASPIRIN 81 MG ECTAB PO SCH (13:00)
[2024-03-10] MEDS: ATORVASTATIN 20 MG TAB PO SCH (13:12)
[2024-03-10] MEDS: LORATADINE 10 MG TAB PO ONE (14:01)
--- NOTE | 2024-03-10 14:37 | Discharge Summary ---
Discharge Summary Date of Service March 10, 2024 Notes For Next Care Provider Discuss referral to Vestibular PT or ENT for BPPV Medication Changes From Visit Atorvastatin 20mg daily Continue daily aspirin once completed with ASA two times a day Meclizine 12.5mg every 12 hours as needed for vertigo. Admission HPI Per Admitting Provider Mr. Patiño is a 64 year old gentleman with past medical history remarkable for f dyslipidemia, EMILIANO on CPAP, DDD, obesity, and recent right hip arthroplasty 02/02/2024 presented to [facility] ED due to dizziness. Patient reports first event happened laying down after stretching and turned head with an episode of "room spinning" that last for 3 seconds. Second episode similar to first episode, but felt fine after getting up and proceeded to go to work. 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 No further episodes since presenting to the ED. Patient states that he has been battling some sinus congestion. He denies fevers or chills or other acute concerns. He denies any history of palpitations, orthopnea, or edema. He denies an exertional shortness of breath, but notes feeling a bit tired given recent hip procedure and trying to increase activity, noting deconditioning. Labs with troponin negative x 2 In the ED, vitals were notable for BP of 110-170s, HR of mostly in 60-70s and O2 sat high 90s on room air. Imaging revealed no carotid stenosis, chest CTA without embolus, noted moderate coronary artery calcifications EKG with new TWI noted, left anterior fasicular block ED interventions: Curbsided Cards who recommended admission given abnormal EKG Patient to be [facility] for further evaluation and management of dizziness and EKG changes. Admission Exam Per Admitting Provider GENERAL APPEARANCE: AxOx4, generally well-appearing male, sounds congested, no acute distress. HEENT: NC, AT. MMM. EOMI, clear conjunctiva, oropharynx clear. NECK: Supple without lymphadenopathy. No stiffness or restricted ROM. HEART: Normal rate and regular rhythm, normal S1/S1, no m/r/g LUNGS: CTAB, moving air well. No crackles or wheezes are heard. ABDOMEN: Soft, nontender, nondistended with good bowel sounds heard. EXTREMITIES: Without cyanosis, clubbing or edema. NEUROLOGICAL: Grossly nonfocal. Alert and oriented, moving all 4 extremities. CN not formally tested but appear grossly intact. Not able to reproduce dizzy episode, no nystagmus Skin: Warm and dry without any rash. Principal Dx & Hospital Course #1 = Principal Diagnosis (1) Dizziness: (2) Abnormal EKG: (3) Status post right hip replacement: Plan Mr. Patiño is a 64 year old gentleman with past medical history remarkable for for dyslipidemia, EMILIANO on CPAP, DDD, obesity, and recent right hip arthroplasty 02/02/2024 presented to [facility] ED due to dizziness. Episodes seemed short-lived and occurred laying down, and while standing--described as the "room spinning." Not able to reproduce symptoms on exam. Not clear if dizziness related to sinus issues and EKG findings incidental, or if perhaps arrhytmia (noted sinus jitendra episodes in review of VS?) contributed to symptoms. Patient underwent stress dobutamine test with no signs of inducible ischemia. Patient able to report more positional component of dizziness, mostly with head rotation from left to right. Rashi maneuver ordered and performed by physical therapy--noted + Butler Hallpike on the left. He was given home exercises and informed to follow up with PCP On day of discharge, patient reports feeling well and eager to get home. He denies chest pain, palpitation or other acute concerns. #Dizziness CTA negative, no stenosis noted No reproducible on exam Biofire and ua ordered to r/o infectious causes potentially Flonase for congestion and claritin No WBC, monitor fever curve -Orthostatic VS negative -No events on tele -Meclizine prn for vertigo -Rashi maneuver performed by PT with little success -Recommend ENT v Vestibular rehab upon PCP f/u #Abnormal EKG, TWI #Moderate Coronary Artery Calcifications on imaging Dobutamine stress echo negative for inducible ischemia HLD on lipid panel, LDL 144, start Atorvastatin 20mg daily continue daily asa #s/p right hip arthroplasty Resume ASA BID then transition to daily enteric coated ASA upon completion of BID dosing per ortho #EMILIANO Continue home CPAP #Obese BMI 35.1, briefly discussed lifestyle modifications, will continue to certified genetic counselor while admitted #DDD Tylenol prn, hold NSAIDS, tramadol for severe pain prn Discharge Exam Constitutional WD/WN, vitals as above Respiratory normal respiratory effort, lungs clear to auscultation Cardiovascular RRR, no murmur, no edema Musculoskeletal no cyanosis or clubbing, extremities motor strength 5/5 Updated Medication List Medication Instructions Recorded Confirmed Type zolpidem 5 mg tablet 5 mg PO HS PRN Sleep 04/17/21 03/09/24 History aspirin 81 mg tablet,delayed 81 mg PO BID 45 days #90 tabs 01/31/24 03/09/24 Rx release (Rosy Low Dose Aspirin) atorvastatin 20 mg tablet 20 mg PO QAM #30 tabs 03/10/24 Rx meclizine 12.5 mg tablet 12.5 mg PO BID PRN dizziness #14 03/10/24 Rx tabs Hospital Stay Data Consultations 03/09/24 17:43 ED Decision to Admit Stat 03/09/24 21:21 Consult Cardiology Routine Diagnostic Imagining Performed 03/09/24 16:19 CT angio chest PE protocol Stat CT angio head wo/w Stat Pending Results Patient Have Any Pending Studies at Discharge: No Discharge Instructions Given to Patient (Per Discharging Provider) You were admitted for concern of dizziness. Work up was negative for acute emergent causes; however, your EKG appeared abnormal. You underwent dobutamine stress echo which was negative for ischemia, or blockages preventing blood flow to your heart. Given findings of coronary calcification on CT angiogram, recommend ongoing treatment aspirin 81 mg, enteric-coated daily. Given moderate LDL cholesterol elevation of 144 mg/dL, and coronary calcification, it is recommended you start atorvastatin 20 mg daily. You were evaluated by Physical Therapy who noted you had a positive Portia Hallpike which is suggestive of Benign Positional Paroxsymal Vertigo. He tried to alleivate with an Eply manuever. You will need to follow up with either PT or request vestibular rehab to held aid with persistent vertiginous symptoms. You will be sent with a presciption of Meclizine to help with your symptoms. Please follow up with PCP. Total Time Total Time Spent Total Time Spent (In Minutes): 45
[2024-03-10] MEDS ORDERED: MECLIZINE HCL 25 MG TAB PO STA (14:56)
--- NOTE | 2024-03-10 15:57 | Electrocardiogram Report ---
Test Reason : Blood Pressure : / mmHG Vent. Rate : 067 BPM Atrial Rate : 067 BPM P-R Int : 124 ms QRS Dur : 116 ms QT Int : 382 ms P-R-T Axes : 060 -55 062 degrees QTc Int : 403 ms Normal sinus rhythm Left axis deviation Incomplete left bundle block Nonspecific T wave abnormality Abnormal ECG When compared with ECG of 09-MAR-2024 10:59, Incomplete left bundle block is now Present T wave inversion no longer evident in Anterior leads Confirmed by Maico Garcia ([id number]) on 03/10/2024 3:56:55 PM Referred By: REFERRED SELF Confirmed By:Maico Garcia
== END 2024-03-10 17:19 | disposition home or self-care (01) | DRG 149 ==
LOC: ED 09:08 → 2N 18:15

== ENCOUNTER 2024-07-31 11:55 | Observation (INO) ==
--- OUTSIDE RECORDS SUMMARY | 2024-07-31 12:00 | External Medical Summary | Summary of Care ---
Author Name Unknown Organization [facility] Address [address] [place] [address] Phone [phone] Care Team Providers Care Console Attendant Name Role Phone Rubin Adames MD Primary Care Provider [phone] Reason for Visit * Reason Onset Date Comments Advice 05/05/2024 Encounter Details Date Type Department Care Team (Late st Contact Info) Description 05/05/2024 [facility] [address] [place] [facility] [place] [address] Rubin Adames MD [address] [place] [address] Advice Allergies Active Allergy Reactions Criticality Noted Date Comments Amoxicillin-Pot Clavulanate Diarrhea 03/20/20 14 Dust 04/17/2021 Other reaction(s): SHORTNESS OF BREATH Pollen Extract 04/17/2021 Other reaction(s): SHORTNESS OF BREATH documented as of this encounter (statuses as of 05/05/2024) Medications Medication Sig Dispensed Refills Start Date End Date Status FLUTICASONE PROPIONATE 50 MCG/ACT NA SUSPIndications:Zhao rgic rhinitis 2 sprays in each nostril daily 1 Inhaler 5 03/30/2014 Active Naproxen Sodium 220 MG Oral Capsule (Aleve) Take 1 Capsule by mouth 2 times a day with morning and evening meals. Active Ibuprofen 200 MG Oral Tablet (Motrin) 2 Tablets. 04/17/2021 Acti ve Aspirin Low Dose 81 MG Oral Tablet Delayed Release Take 1 Tablet by mouth in the morning. 02/01/2024 Active Atorvastatin Calcium 20 MG Oral Tablet (Lipitor)Indications :Dyslipidemia, goal LDL below 100 Take 1 Tablet by mouth in the morning. 90 Tablet 3 03/15/2024 Active Zolpidem Tartrate 5 MG Oral Tablet (Ambien)Indications: EMILIANO (obstructive sleep apnea) take 1 tablet by mouth at bedtime if needed for sleep 30 Tablet 3 04/12/2024 Active Triamcinolone Acetonide 0.1 % External Cream (Aristocort)Indicati ons:Rash and nonspecific skin eruption Apply topically to affected area 2 times a day. To affected area. 60 g 5 05/05/2024 Active documented as of this encounter (statuses as of 05/05/2024) Active Problems Problem Noted Date Diagnosed Date [...] as of this encounter (statuses as of 05/05/2024) Resolved Problems Problem Noted Date Diagnosed Date [...] use disorder 10/06/2000 012 Bicipital tenosynovitis 10/06/2000 12/03/2017 JOINT PAIN-SHLDER- OVERUSE 10/06/2000 1 12/21/2016 documented as of this encounter (statuses as of 05/05/2024) Immunizations Name Administration Dates Next Due Seasonal [...] pur e alcohol) one or two beers/day PHQ-2 Answer Date Recorded PHQ Adult Total Score 0 03/15/2024 Hunger Vital Sign Answer Date Recorded Within the past 12 months, y ou worried that your food would run out before you got the money to buy more. Never true 03/11/20 24 Within the past 12 months, t he food you bought just didn't last and you didn't have money to get more. Never true 03/11/2024 Childcare Answer Date Recorded Do you feel overwhelmed with taking care of a child, family member or friend? No 03/11/2024 Does your family need help f inding childcare? (Household - for ages 0-17 years) Not on file 03/11/2024 Clothing Answer Date Recorded Have you been unable to get clothing when it was really needed? No 03/11/2024 Is your family able to get c lothes or diapers when needed? (Household - for ages 0-17 years) Not on file 03/11/2024 Personal Safety Answer Date Recorded Do you feel unsafe or have concerns for your saf ety? No 03/11/2024 Do you have concerns for you r family's safety? (Household - for ages 0-17 years) Not on file 03/11/2024 Utilities Answer Date Recorded Do you have trouble paying y our heating, water, or electric bill? No 03/11/2024 Is your family able to pay t he heat, water, or electric bill? (Household - for ages 0-17 years) Not on file 03/11/2024 Does your family have access to good internet? (Household - for ages 0-17 years) Not on file 03/11/2024 Employment Status Answer Date Recorded Are you unemployed or without regular income? No 03/11/2024 Does the household have a re lar source of income? (Household - for ages 0-17 years) Not on file 03/11/2024 Social Connections Answer Date Recorded How often do you feel lonely or isolated from th ose around you? Never 03/11/2024 Financial Resource Strain Answer Date R ecorded Do you have any trouble payi ng for your medications, or do you think you might in the future? No 03/11/2024 Does your family have troubl e paying for medicine? (Household - for ages 0-17 years) Not on file 03/11/2024 Transportation Needs Answer Date Record ed READ ONLY Do you have troubl e getting a ride to medical visits or work? Never True 03/11/2024 Does your family have a hard time getting a ride to doctors visits? (Household - for ages 0-17 years) Not on file 03/11/2024 Has lack of transportation k ept you from medical appointments, meetings, work, or from getting things needed for daily living? Check all that apply. (Adult - for ages 18 years and over) Not on file 03/11/2024 Do you (or your family) have trouble finding or paying for a ride (transportation)? (Household - for ages 0-17 years) Not on file 03/11/2024 Housing Stability Answer Date Recorded Do you currently live in a s helter or have no steady place to sleep at night? No 03/11/2024 READ ONLY Do you think you a re at risk of becoming homeless? No 03/11/2024 Does your family worry about paying for your home or becoming homeless? (Household - for ages 0-17 years) Not on file 0 03/11/2024 Are you homeless or worried that you might be in the future? (Adult - for ages 18 years and over) Not on file Are you (or your family) trever eless or worried that you might be in the future? (Household - for ages 0-17 years) Not on file Food Insecurity Answer Date Recorded Do you need food for this week? No 03/11/2024 Are you able to get enough f ood for your family? (Household - for ages 0-17 years) Not on file 03/11/2024 Does your family need food t his week? (Household - for ages 0-17 years) Not on file 03/11/2024 Do you always have enough fo od for your family? (Household - for ages 0-17 years) Not on file 03/11/2024 Sex and Gender Information Value Date Recorded Sex Assigned at Male 03/11/2024 8:38 AM EDT Gender Identity Male 03/11/2024 8:38 AM EDT Sexual Orientation Straight 03/11/2024 8: 38 AM EDT Job Start Date Occupation Industry Not on file Not on file Not on file documented as of this encounter Miscellaneous Notes * Telephone Encounter - Tina Bangura OSA - 05/05/2024 2:21 PM EDT Error documented in this encounter Plan of Treatment Upcoming Encounters Date Type Department Care Team (Latest Contact Info) Description 08/15/2024 1:15 PM EDT Hospital Encounter [facility] Endoscopy Room [facility] [address] [place] [address] Adrianna Martinez, [address] [place] [address] 08/15/2024 1:15 PM EDT - 08/15/2024 1:45 PM EDT Surgery [facility], Endoscopy Room [facility] [address] [place] [phone] Adrianna Martinez DO [address] [place] [address] COLONOSCOPY FLEXIBLE PROXIMAL DIAGNOSTIC 01/20/2025 7:40 AM EST Office Visit [facility] [address] [place] [phone] Rubin Adames MD [address] [place] [facility] [place] [address] Scheduled Procedures Name Priority Associated Diagnoses Date/Ti me COLONOSCOPY FLEXIBLE PROXIMAL DIAGNOSTIC Recall History of colon polyps 08/15/2024 1:15 PM EDT Health Maintenance Due Date Last Done Comments HIV Screening 01/18/1975 Hepatitis C Screening 01/18/1978 Cologuard 01/18/2005 Fecal Occult Blood Test 01/18/2005 Sigmoidoscopy 01/18/2005 Lipid Panel 05/25/2014 05/25/2009 Colonoscopy 11/24/2022 11/24/2017, 07/2018, 03/12/2005 Colorectal Cancer Screening 11/24/2022 COVID-19 Vaccine ( - season) 2023 Zoster Vaccines (2 of 2) 03/16/2024 01/20/2024 Influenza Vaccine (FLU shot) (Season Ended) 2024 08/16/2020, 08/16/2020 Depression Screening 03/15/2025 03/15/2024 Diabetes Screening 01/08/2027 01/08/2024, 0 07/04/2017, 05/15/2014, Additional history exists DTaP,Tdap,and Td Vaccines (2 - Td or Tdap) 08/16/2030 08/16/2020, 05/16/2004 RETIRED - COLONOSCOPY-EVERY 5 YRS AGES 18-100 Discontinued 11/24/2017, 11/24/2017, 03/12/2005 GARDASIL-HPV IMMUNIZATION SERIES Aged Out No longer [...] filedocumented as of this encounter Care Teams Console Attendant Relationship Specialty Start Date End Date March, Rubin Parr MD [address] [place] [address] PCP - General Family Medicine 01/12/24 documented as of this encounter
--- OUTSIDE RECORDS SUMMARY | 2024-07-31 12:00 | External Medical Summary | Summary of Care ---
Author Name Unknown Organization [facility] Address [address] [place] [address] Phone [phone] Care Team Providers Care Embossing Machine Operator Name Role Phone Rubin Adames MD Primary Care Provider [phone] Reason for Visit * Reason Onset Date Comments Medication Refill 04/18/2024 Encounter Details Date Type Department Care Team (Late st Contact Info) Description 04/18/2024 Telephone [facility] [address] [place] [address] [facility], Nurse Sleep Disorders [address] [place] [address] Medication Refill Allergies Active Allergy Reactions Criticality Noted Date Comments Amoxicillin-Pot Clavulanate Diarrhea 03/20/20 14 Dust 04/17/2021 Other reaction(s): SHORTNESS OF BREATH Pollen Extract 04/17/2021 Other reaction(s): SHORTNESS OF BREATH documented as of this encounter (statuses as of 04/18/2024) Medications Medication Sig Dispensed Refills Start Date End Date Status FLUTICASONE PROPIONATE 50 MCG/ACT NA SUSPIndications:Aller gic rhinitis 2 sprays in each nostril daily 1 Inhaler 5 03/30/2014 Active Naproxen Sodium 220 MG Oral Capsule (Aleve) Take 1 Capsule by mouth 2 times a day with morning and evening meals. Active Ibuprofen 200 MG Oral Tablet (Motrin) 2 Tablets. 04/17/2021 Active Aspirin Low Dose 81 MG Oral Tablet Delayed Release Take 1 Tablet by mouth in the morning. 02/01/2024 Active Atorvastatin Calcium 20 MG Oral Tablet (Lipitor)Indications: Dyslipidemia, goal LDL below 100 Take 1 Tablet by mouth in the morning. 90 Tablet 3 03/15/2024 Active Zolpidem Tartrate 5 MG Oral Tablet (Ambien)Indications:O SA (obstructive sleep apnea) take 1 tablet by mouth at bedtime if needed for sleep 30 Tablet 3 04/12/2024 Active documented as of this encounter (statuses as of 04/18/2024) Active Problems Problem Noted Date Diagnosed Date [...] as of this encounter (statuses as of 04/18/2024) Resolved Problems Problem Noted Date Diagnosed Date [...] as of this encounter (statuses as of 04/18/2024) Immunizations Name Administration Dates Next Due Seasonal [...] money to get more. Never true 03/11/2024 Sex and Gender Information Value Date Recorded Sex Assigned at Male 03/11/2024 8:38 AM EDT Gender Identity Male 03/11/2024 8:38 AM EDT Sexual Orientation Straight 03/11/2024 8: 38 AM EDT Job Start Date Occupation Industry Not on file Not on file Not on file documented as of this encounter Miscellaneous Notes * Telephone Encounter - Radha Borjas LPN - 04/18/2024 9:14 AM EDT Received call from [facility] stating Zolpidem Script was not received on 04/12/24. In review of Electronic entered Script by Dr Finch, the confirmation of receiving order by Pharmacy is not present. Verbal order given to Pharmacist on 04/18/2024 for Ambien 5mg 30 tabs with 3 refills documented in this encounter Plan of Treatment Upcoming Encounters Date Type Department Care Team (Latest Contact Info) Description 08/15/2024 1:15 PM EDT Hospital Encounter [facility]O [facility], Endoscopy Room [facility] [address] [place] [phone] Adrianna Martinez, DO [address] [place] [address] 08/15/2024 1:15 PM EDT - 08/15/2024 1:45 PM EDT Surgery ENDO [facility], Endoscopy Room [facility] [address] [place] [phone] Adrianna Martinez, DO [address] [place], [place] [address] COLONOSCOPY FLEXIBLE PROXIMAL DIAGNOSTIC 01/20/2025 7:40 AM EST Office Visit [facility] [address] [place] [phone] MarchRubin MD [address] [place] [address] Scheduled Procedures Name Priority Associated Diagnoses Date/Ti me COLONOSCOPY FLEXIBLE PROXIMAL DIAGNOSTIC Recall History of colon polyps 08/15/2024 1:15 PM EDT Health Maintenance Due Date Last Done Comments HIV Screening 01/18/1975 Hepatitis C Screening 01/18/1978 Cologuard 01/18/2005 Fecal Occult Blood Test 01/18/2005 Sigmoidoscopy 01/18/2005 Lipid Panel 05/25/2014 05/25/2009 Colonoscopy 11/24/2022 11/24/2017, 07/2018, 03/12/2005 Colorectal Cancer Screening 11/24/2022 COVID-19 Vaccine ( season) 2023 Zoster Vaccines (2 of 2) [...] filedocumented as of this encounter Care Teams Embossing Machine Operator Relationship Specialty Start Date End Date March, Rubin Parr MD [address] [place] [address] PCP - General Family Medicine 01/12/24 documented as of this encounter
--- OUTSIDE RECORDS SUMMARY | 2024-07-31 12:00 | External Medical Summary | Summary of Care ---
Author Name Unknown Organization [facility] Address [address] [place] [address] Phone [phone] Care Team Providers Care Grit Removal Operator Name Role Phone Rubin Adames MD Primary Care Provider [phone] Reason for Visit * Reason Onset Date Comments Advice 05/04/2024 Encounter Details Date Type Department Care Team (Late st Contact Info) Description 05/04/2024 [facility] [address] [place] [facility] [place] [address] Rubin Adames MD [address] [place] [address] Advice Allergies Active Allergy Reactions [...] Encounter - Tina Bangura OSA - 05/05/2024 2:22 PM EDT Patient has been notified of the message. Patient has no further questions. * Telephone Encounter - Melina Beaver LPN - 05/05/2024 2:17 PM EDT Left message for pt to call back. * Telephone Encounter - Rubin Adames MD - 05/05/2024 1:55 PM EDT Rash less likely to be from statin. Triamcinolone sent to [facility] in [place]. If not improving recommend appointment for eval. Rubin Adames MD * Telephone Encounter - Gamaliel Garcia MED ASSIST - 05/05/2024 12:28 PM EDT Please advise * Telephone Encounter - Tina Bangura OSA - 05/04/2024 4:26 PM EDT Patient called states that he has a rash. States that he saw where the atrovastatin could cause a rash. Patient states it on his ankles, elbows, forearm and lower calf. Patient states that he startedthe atorvastatin 2 mo ago and had the rash a few weeks after getting into a regular regimen with this medication. States that its not poison anneliese. Patient would like to know if he could be prescribed a cream, states that he has tried cortisone cream and clear caladryl. Or patient is wondering if Dr Adames would like to see him. Please call patient [phone]. documented in this encounter Plan of Treatment Upcoming Encounters Date Type Department Care Team (Latest Contact Info) Description 08/15/2024 1:15 PM EDT Hospital Encounter ENDO [facility], Endoscopy Room [facility] [address] [place] [phone] Adrianna Martinez, DO [address] [place] [address] 08/15/2024 1:15 PM EDT - 08/15/2024 1:45 PM EDT Surgery [facility]O [facility], Endoscopy Room [facility] [address] [place] [phone] Adrianna Martinez, DO [address] [place] [address] COLONOSCOPY FLEXIBLE PROXIMAL DIAGNOSTIC 01/20/2025 7:40 AM EST Office Visit [facility] [address] [place] [address] Rubin Adames MD [address] [place] [address] Scheduled Procedures Name Priority Associated Diagnoses Date/Ti me COLONOSCOPY FLEXIBLE PROXIMAL DIAGNOSTIC Recall History of colon polyps 08/15/2024 1:15 PM EDT Health Maintenance Due Date Last Done Comments HIV Screening 01/18/1975 Hepatitis C Screening 01/18/1978 Cologuard 01/18/2005 Fecal Occult Blood Test 01/18/2005 Sigmoidoscopy 01/18/2005 Lipid Panel 05/25/2014 05/25/2009 Colonoscopy 11/24/2022 11/24/2017, 07/2018, 03/12/2005 Colorectal Cancer Screening 11/24/2022 COVID-19 Vaccine (1 - season) 2023 Zoster Vaccines (2 of [...] as of this encounter Visit Diagnoses Diagnosis Rash and nonspecific skin eruption- Primary Rash and other nonspecific skin eruption History of colon polyps Personal history of colonic polyps documented in this encounter Care Teams Grit Removal Operator Relationship Specialty Start Date End Date March, Rubin Parr MD [address] [place] [address] PCP - General Family Medicine 01/12/24 documented as of this encounter
--- OUTSIDE RECORDS SUMMARY | 2024-07-31 12:00 | External Medical Summary | Summary of Care ---
Author Name Unknown Organization [facility] Address [address] [place] [address] Phone [phone] Care Team Providers Care Insurance Defense Paralegal Name Role Phone Rubin Adames MD Primary Care Provider [phone] Reason for Visit * Reason Onset Date Comments Advice 05/04/2024 Encounter Details Date Type Department Care Team (Late st Contact Info) Description [facility] [address] [place] [facility] [place] [address] Rubin Adames MD [address] [place] [address] Advice Allergies Active Allergy Reactions [...] encounter Miscellaneous Notes * Telephone Encounter - Melina Beaver LPN - 05/05/2024 2:17 PM EDT Left message for pt to call back. * Telephone Encounter - Rubin Adames MD - 05/05/2024 1:55 PM EDT Rash less likely to be from statin. Triamcinolone sent to [facility] in [place]. If not improving recommend appointment for eval. [...] like to see him. Please call patient [phone]. documented in this encounter Plan of Treatment Upcoming Encounters Date Type Department Care Team (Latest Contact Info) Description 08/15/2024 1:15 PM EDT Hospital Encounter ENDO [facility], Endoscopy Room [facility] [address] [place] [phone] Adrianna Martinez, [address] [place] [address] 08/15/2024 1:15 PM EDT - 08/15/2024 1:45 PM EDT Surgery ENDO [facility], Endoscopy Room [facility] [address] [place] [phone] Adrianna Martinez, [address] [place] [address] COLONOSCOPY FLEXIBLE PROXIMAL DIAGNOSTIC 01/20/2025 7:40 AM EST Office Visit [facility] [address] [facility], [place] [phone] Rubin Adames MD [address] [facility], [place] [phone] Scheduled Procedures Name Priority Associated Diagnoses Date/Ti [...] polyps documented in this encounter Care Teams Insurance Defense Paralegal Relationship Specialty Start Date End Date March, Rubin Parr MD [address] [place] [address] PCP - General Family Medicine 01/12/24 documented as of this encounter
--- OUTSIDE RECORDS SUMMARY | 2024-07-31 12:00 | External Medical Summary | Summary of Care ---
Author Name Unknown Organization [facility] Address [address] [place] [address] Phone [phone] Care Team Providers Care Help Desk Team Leader Name Role Phone Rubin Adames MD Primary Care Provider [phone] Reason for Visit * Reason Onset Date Comments Advice 05/20/2024 Encounter Details Date Type Department Care Team (Late st Contact Info) Description 05/20/2024 [facility] [address] [place] [facility] [place] [address] Rubin Adames MD [address] [place] [address] Advice Allergies Active Allergy Reactions Criticality Noted Date Comments Amoxicillin-Pot Clavulanate Diarrhea 03/20/20 14 Dust 04/17/2021 Other reaction(s): SHORTNESS OF BREATH Pollen Extract 04/17/2021 Other reaction(s): SHORTNESS OF BREATH documented as of this encounter (statuses as of 05/20/2024) Medications Medication Sig Dispensed Refills Start Date [...] as of this encounter (statuses as of 05/20/2024) Active Problems Problem Noted Date Diagnosed Date [...] as of this encounter (statuses as of 05/20/2024) Resolved Problems Problem Noted Date Diagnosed Date [...] as of this encounter (statuses as of 05/20/2024) Immunizations Name Administration Dates Next Due Seasonal [...] encounter Miscellaneous Notes * Telephone Encounter - Shannan Gomez LPN - 05/20/2024 3:03 PM EDT Correct patient? This patient sees Dr Adames * Telephone Encounter - Kelle Serrano OSA - 05/20/2024 2:55 PM EDT Created in error/wrong pt Took cpap to [facility] since not working correctly documented in this encounter Plan of Treatment Upcoming Encounters Date Type Department Care Team (Latest Contact Info) Description 08/15/2024 1:15 PM EDT Hospital Encounter ENDO [facility], Endoscopy Room [facility] [address] [place], [place] [phone] Adrianna Martinez, DO [address] [place], [place] [address] 08/15/2024 1:15 PM EDT - 08/15/2024 1:45 PM EDT Surgery ENDO [facility], Endoscopy Room [facility] [address] [place] [phone] Adrianna Martinez, DO [address] [place] [address] COLONOSCOPY FLEXIBLE PROXIMAL DIAGNOSTIC 01/20/2025 7:40 AM EST Office Visit [facility] [address] [place] [phone] MarchRubin MD [address] [place], [place] [phone] Scheduled Procedures Name Priority Associated Diagnoses Date/Ti [...] 2) 03/16/2024 01/20/2024 Influenza Vaccine (FLU shot) (#1) 2024 08/16/2020, 08/16/2020 Depression Screening 03/15/2025 03/15/2024 Diabetes Screening 01/08/2027 01/08/2024, 0 07/04/2017, 05/15/2014, Additional history exists DTaP,Tdap,and Td Vaccines (2 - Td or Tdap) 08/16/2030 08/16/2020, 05/16/2004 RETIRED - COLONOSCOPY-EVERY 5 YRS AGES 18-100 Discontinued 11/24/2017, 11/24/2017, 03/12/2005 HPV (Gardasil) Vaccine Aged Out No lo nger eligible based on patient's age to complete this topic Hepatitis B Vaccine Aged Out No longe r eligible based on patient's age to complete [...] filedocumented as of this encounter Care Teams Help Desk Team Leader Relationship Specialty Start Date End Date March, Rubin Parr MD [address] [place] [address] PCP - General Family Medicine 01/12/24 documented as of this encounter
--- OUTSIDE RECORDS SUMMARY | 2024-07-31 12:00 | External Medical Summary | Summary of Care ---
Author Name Unknown Organization [facility] Address [address] [place] [address] Phone [phone] Care Team Providers Care Part Time Name Role Phone Rubin Adames MD Primary Care Provider [phone] Reason for Visit * Reason Onset Date Comments Advice 05/04/2024 Encounter Details Date Type Department Care Team (Late st Contact Info) Description 05/04/2024 [facility] [address] [place] [facility] [place] [address] Rubin Adames MD [address] [place] [address] Advice Allergies Active Allergy Reactions [...] encounter Miscellaneous Notes * Telephone Encounter - Rubin Adames MD - 05/05/2024 1:55 PM EDT Rash less likely to be from statin. Triamcinolone sent to [facility] in [place]. If not improving recommend appointment for eval. [...] like to see him. Please call patient [phone]. documented in this encounter Plan of Treatment Upcoming Encounters Date Type Department Care Team (Latest Contact Info) Description 08/15/2024 1:15 PM EDT Hospital Encounter ENDO [facility], Endoscopy Room [facility] [address] [place] [phone] Adrianna Martinez, DO [address] [place] [address] 08/15/2024 1:15 PM EDT - 08/15/2024 1:45 PM EDT Surgery ENDO [facility], Endoscopy Room [facility] [address] [place] [phone] Adrianna Martinez, [address] [place] [address] COLONOSCOPY FLEXIBLE PROXIMAL DIAGNOSTIC 01/20/2025 7:40 AM EST Office Visit [facility] [address] [place] [phone] Rubin Adames MD [address] [place], [place] [phone] Scheduled Procedures Name Priority Associated Diagnoses Date/Ti [...] polyps documented in this encounter Care Teams Part Time Relationship Specialty Start Date End Date March, Rubin Parr MD [address] [place] [address] PCP - General Family Medicine 01/12/24 documented as of this encounter
--- OUTSIDE RECORDS SUMMARY | 2024-07-31 12:00 | External Medical Summary | Summary of Care ---
Author Name Unknown Organization [facility] Address [address] [place] [address] Phone [phone] Care Team Providers Care Rn Plastic Surgery Name Role Phone Rubin Adames MD Primary Care Provider [phone] Reason for Visit * Reason Onset Date Comments Med Request 04/12/2024 Encounter Details Date Type Department Care Team (Late st Contact Info) Description 04/12/2024 Telephone Access Center, [facility] [address] [facility] *DO NOT REMOVE THIS DEPARTMENT* [place] [address] Services, Scheduling [address] [place] [address] Med Request Allergies Active Allergy Reactions Criticality Noted Date Comments Amoxicillin-Pot Clavulanate Diarrhea 03/20/20 14 Dust 04/17/2021 Other reaction(s): SHORTNESS OF BREATH Pollen Extract 04/17/2021 Other reaction(s): SHORTNESS OF BREATH documented as of this encounter (statuses as of 04/12/2024) Medications Medication Sig Dispensed Refills Start Date [...] Active Atorvastatin Calcium 20 MG Oral Tablet (Lipitor)Indicati ons:Dyslipidemia, goal LDL below 100 Take 1 Tablet by mouth in the morning. 90 Tablet 3 03/15/2024 Active Zolpidem Tartrate 5 MG Oral Tablet (Ambien)Indicatio ns:EMILIANO (obstructive sleep apnea) take 1 tablet by mouth at bedtime if needed for sleep 30 Tablet 3 04/12/2024 Active Zolpidem Tartrate 5 MG Oral Tablet (Ambien)Indicatio ns:EMILIANO (obstructive sleep apnea) take 1 tablet by mouth at bedtime if needed for sleep 30 Tablet 3 12/10/2023 04/12/2024 Discontinued (Refill) documented as of this encounter (statuses as of 04/12/2024) Active Problems Problem Noted Date Diagnosed Date [...] as of this encounter (statuses as of 04/12/2024) Resolved Problems Problem Noted Date Diagnosed Date [...] as of this encounter (statuses as of 04/12/2024) Immunizations Name Administration Dates Next Due Seasonal [...] as of this encounter Miscellaneous Notes * Addendum Note - Yaakov Philippe MD - 04/12/2024 7:31 PM EDTAddended by: YAAKOV PHILIPPE on: 04/12/2024 07:31 PM Modules accepted: Orders * Telephone Encounter - Monae Knott OSA - 04/12/2024 3:39 PM EDT A medication refill was requested for this patient. Medication: Zolpidem Tartrate 5 MG Oral Tablet (Ambien) Reason for request: No refills Left and he only have three more pills Preferred pharmacy: [id number] [facility] documented in this encounter Plan of Treatment Upcoming Encounters Date Type Department Care Team (Latest Contact Info) Description 08/15/2024 1:15 PM EDT Hospital Encounter ENDO [facility], Endoscopy Room [facility] [address] [place] [phone] Adrianna Martinez, DO [address] [place] [address] 08/15/2024 1:15 PM EDT - 08/15/2024 1:45 PM EDT Surgery ENDO [facility], Endoscopy Room [facility] [address] [place] [address] Adrianna Martinez, DO [address] [place] [address] COLONOSCOPY FLEXIBLE PROXIMAL DIAGNOSTIC 01/20/2025 7:40 AM EST Office Visit [facility] [address] [place] [facility] [place] [phone] MarchRubin MD [address] [place], [place] [phone] Scheduled Procedures Name Priority Associated Diagnoses Date/Ti [...] as of this encounter Visit Diagnoses Diagnosis EMILIANO (obstructive sleep apnea) Obstructive sleep apnea (adult) (pediatric) History of colon polyps Personal history of colonic polyps documented in this encounter Care Teams Rn Plastic Surgery Relationship Specialty Start Date End Date March, Rubin Parr MD [address] [place] [facility] [place] [address] PCP - General Family Medicine 01/12/24 documented as of this encounter
--- OUTSIDE RECORDS SUMMARY | 2024-07-31 12:00 | External Medical Summary | Summary of Care ---
Author Name Unknown Organization [facility] Address [address] [place] [address] Phone [phone] Care Team Providers Care Wire Fence Erector Name Role Phone Rubin Adames MD Primary Care Provider Encounter Details Date Type Department Care Team (Late st Contact Info) Description 06/13/2024 Orders Only [facility] Department [address] [place] [address] Livier Ventura [facility] Other*[id number] Allergies Active Allergy Reactions Criticality Noted Date Comments Amoxicillin-Pot Clavulanate Diarrhea 03/20/20 14 Dust 04/17/2021 Other reaction(s): SHORTNESS OF BREATH Pollen Extract 04/17/2021 Other reaction(s): SHORTNESS OF BREATH documented as of this encounter (statuses as of 06/13/2024) Medications Medication Sig Dispensed Refills Start Date [...] as of this encounter (statuses as of 06/13/2024) Active Problems Problem Noted Date Diagnosed Date [...] as of this encounter (statuses as of 06/13/2024) Resolved Problems Problem Noted Date Diagnosed Date [...] as of this encounter (statuses as of 06/13/2024) Immunizations Name Administration Dates Next Due Seasonal [...] 03/11/2024 Does the household have a re gular source of income? (Household - for ages [...] EDT Hospital Encounter [facility]O [facility], Endoscopy Room [facility] [address] [place] [phone] Adrianna Martinez, [address] [place] [address] 08/15/2024 1:15 PM EDT - 08/15/2024 1:45 PM EDT Surgery ENDO [facility], Endoscopy Room [facility] [address] [place] [phone] Adrianna Martinez, [address] [place] [address] COLONOSCOPY FLEXIBLE PROXIMAL DIAGNOSTIC 01/20/2025 7:40 AM EST [address] [phone] Rubin Adames MD [address] [place] [address] Scheduled Orders Name Type Priority Associated Diagnoses Orde r Schedule MY[facility] INITIAL ADULT Lab Routine [facility] Other*[id number] Expected: 06/13/2024 (Approximate), Expires: 07/03/2025 Scheduled Procedures Name Priority Associated Diagnoses Date/Ti [...] as of this encounter Visit Diagnoses Diagnosis [facility] Other*[id number] History of colon polyps Personal history of colonic polyps documented in this encounter Care Teams Wire Fence Erector Relationship Specialty Start Date End Date March, Rubin Parr MD [address] [place] [address] PCP - General Family Medicine 01/12/24 documented as of this encounter
--- OUTSIDE RECORDS SUMMARY | 2024-07-31 12:01 | External Medical Summary | Summary of Care ---
Author Name Unknown Organization [facility] Address [address] [place] [address] Phone [phone] Care Team Providers Care Installation Specialist Name Role Phone Rubin Adames MD Primary Care Provider [phone] Reason for Visit * Reason Onset Date Comments Med Request 04/12/2024 Encounter Details Date Type Department Care Team (Late st Contact Info) Description 04/12/2024 Telephone Access Center, [facility] [address] [facility] *DO NOT REMOVE THIS DEPARTMENT* [place] [address] Services, Scheduling [address] [place] [address] Med Request Allergies Active Allergy Reactions Criticality [...] Oral Tablet (Motrin) 2 Tablets. 04/17/2021 Active Zolpidem Tartrate 5 MG Oral Tablet (Ambien)Indications:O SA (obstructive sleep apnea) take 1 tablet by mouth at bedtime if needed for sleep 30 Tablet 3 12/10/2023 Active Aspirin Low Dose 81 MG Oral Tablet Delayed Release Take 1 Tablet by mouth in the morning. 02/01/2024 Active Atorvastatin Calcium 20 MG Oral Tablet (Lipitor)Indications: Dyslipidemia, goal LDL below 100 Take 1 Tablet by mouth in the morning. 90 Tablet 3 03/15/2024 Active documented as of this encounter (statuses [...] encounter Miscellaneous Notes * Telephone Encounter - Monae Knott OSA - 04/12/2024 3:39 PM EDT A medication refill was requested for this patient. Medication: Zolpidem Tartrate 5 MG Oral Tablet (Ambien) Reason for request: No refills Left and he only have three more pills [id number] [address] [facility] documented in this encounter Plan of Treatment Upcoming Encounters Date Type Department Care Team (Latest Contact Info) Description 08/15/2024 1:15 PM EDT Hospital Encounter [facility]O [facility], Endoscopy Room [facility] [address] [place] [phone] Adrianna Martinez, DO [address] [place] [address] 08/15/2024 1:15 PM EDT - 08/15/2024 1:45 PM EDT Surgery [facility]O [facility], Endoscopy Room [facility] [address] [place] [phone] Adrianna Martinez, DO [address] [place] [address] COLONOSCOPY FLEXIBLE PROXIMAL DIAGNOSTIC 01/20/2025 7:40 AM EST Office Visit [facility] [address] [place] [phone] MarchRubin MD [address] [place] [address] Scheduled Procedures Name Priority Associated [...] filedocumented as of this encounter Care Teams Installation Specialist Relationship Specialty Start Date End Date March, Rubin Parr MD [address] [facility] [place] [address] PCP - General Family Medicine 01/12/24 documented as of this encounter
--- OUTSIDE RECORDS SUMMARY | 2024-07-31 12:01 | External Medical Summary | Summary of Care ---
Author Name Unknown Organization [facility] Address [address] [place] [address] Phone [phone] Care Team Providers Care Record Press Tender Name Role Phone Rubin Adames MD Primary Care Provider [phone] Reason for Visit * Reason Onset Date Comments Advice 03/16/2024 Encounter Details Date Type Department Care Team (Late st Contact Info) Description 03/16/2024 [facility] [address] [place] [facility] [place] [address] Rubin Adames MD [address] [place] [address] Advice Allergies Active Allergy Reactions Criticality Noted Date Comments Amoxicillin-Pot Clavulanate Diarrhea 03/20/20 14 Dust 04/17/2021 Other reaction(s): SHORTNESS OF BREATH Pollen Extract 04/17/2021 Other reaction(s): SHORTNESS OF BREATH documented as of this encounter (statuses as of 04/06/2024) Medications Medication Sig Dispensed Refills Start Date [...] as of this encounter (statuses as of 04/06/2024) Active Problems Problem Noted Date Diagnosed Date [...] as of this encounter (statuses as of 04/06/2024) Resolved Problems Problem Noted Date Diagnosed Date [...] as of this encounter (statuses as of 04/06/2024) Immunizations Name Administration Dates Next Due Seasonal [...] Telephone Encounter - Rubin Adames MD - 03/16/2024 12:04 PM EDT Excellent. Noted. Thanks. Rubin Adames MD * Telephone Encounter - Maia Davis OSA - 03/16/2024 8:47 AM EDT Justin called wanting you to know that [facility] in [place] is coming to his house today for physical therapy. He just wanted to let you know. documented in this encounter Plan of Treatment Upcoming Encounters Date Type Department Care Team (Latest Contact Info) Description 08/15/2024 1:15 PM EDT Hospital Encounter [facility]O [facility], Endoscopy Room [facility] [address] [place] [phone] Adrianna Martinez, DO [address] [place] [address] 08/15/2024 1:15 PM EDT - 08/15/2024 1:45 PM EDT Surgery [facility]O [facility], Endoscopy Room [facility] [address] [place] [phone] Adrianna Martinez, DO [address] [place] [address] COLONOSCOPY FLEXIBLE PROXIMAL DIAGNOSTIC 01/20/2025 7:40 AM EST Office Visit [facility] [address] [place] [phone] MarchRubin MD [address], [place] [phone] Scheduled Procedures Name Priority Associated Diagnoses Date/Ti [...] filedocumented as of this encounter Care Teams Record Press Tender Relationship Specialty Start Date End Date March, Rubin Parr MD [address] [place] [address] PCP - General Family Medicine 01/12/24 documented as of this encounter
--- NOTE | 2024-07-31 12:21 | Emergency Department Note ---
Impression & Plan Sepsis, Leukopenia, Thrombocytopenia ED Provider Note NAME: ELENI KILPATRICK AGE: 64 SEX: M : 1960 ARRIVES VIA: Walk-In INFORMANT: Patient ED PROVIDER(S): Bal Pugh DO CHIEF COMPLAINT: rigors HPI: Patient is a 64-year-old male who presents to the ER with a past medical history of CAD, dizziness, renal stones and diverticulitis for shaking chills and sweats which started this past . He admits to nausea, vomiting, and diarrhea. He is having 2 episodes of explosive diarrhea a day. He admits to dry heaving. Denies any headache or change in vision. No new cough, congestion, or runny nose. He notes he was COVID-positive over a month ago. Denies any dysuria, urgency, or frequency. No open wounds or sores. No other exacerbating or remitting factors. He also admits to some achiness in the lower back which has been off and on since COVID. ADDITIONAL HISTORY OBTAINED: Per HPI Chronic Medical/Social Conditions Affecting Care: Per HPI PAST MEDICAL HISTORY:See Below PAST SURGICAL HISTORY:See Below FAMILY HISTORY:See Below SOCIAL HISTORY:See Below HOME MEDICATIONS:See Below ALLERGIES:See Below VITALS:See Below PHYSICAL EXAMINATION: GENERAL: Sitting up in bed, alert, well appearing, well nourished, no distress, non-toxic EYE EXAM: normal conjunctiva. PERRL and EOM's grossly intact. OROPHARYNX: no exudate, no erythema, lips, buccal mucosa, and tongue normal and mucous membranes are moist NECK: supple, no nuchal rigidity, no adenopathy, non-tender LUNGS: Clear to auscultation. Normal chest wall mechanics HEART: no murmurs, S1 normal and S2 normal ABDOMEN: abdomen soft, non-tender, normo-active bowel sounds, no masses, no rebound or guarding. UPPER EXTREMITIES: upper extremities are grossly normal. LOWER EXTREMITIES: No pitting edema. NEURO EXAM: Normal sensorium, cranial nerves II-XII grossly intact, normal speech, no gross weakness of arms, no gross weakness of legs. No drift. Finger to nose intact. Gross sensation intact. MEDICAL DECISION MAKING: Patient is a 64-year-old male who presents ER for the above-stated complaint. IV was established and blood work was obtained. He was found to have an elevated heart rate in the upper 90s in combination with a borderline fever of 37.8. Labs show leukopenia at 1.6. Thrombocytopenia at 66. BMP with a hyponatremia at 132. T. bili and LFTs were unremarkable. Troponin was elevated. Pro-Kvng was slightly elevated. UA was contaminated. He was covered with IV Rocephin. Lyme IgG was positive. COVID was positive but he was positive initially about a month ago. Do not feel this consistent with his symptoms. 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 Covered with IV Rocephin and add on IV doxycycline. Ordered anaplasmosis testing. Updated bedside and discussed with the hospitalist for further evaluation management treatment. Consults/Care Managements Discussions: Per [facility] Triage Nursing notes reviewed. Limited review of prior medical records performed Vital Signs: reviewed and remarkable for tachy and febrile Differential diagnosis: Differential diagnosis includes etiologies such as sepsis, UTI, pneumonia, metabolic, electrolyte abnormalities, cardiac sources, intracerebral event, toxicologic, neurological, as well as others were entertained. ER treatment provided: See below Diagnostics interpreted by me include EKG and cardiac monitoring as listed below: -Cardiac Monitoring: An order was placed for continuous cardiac monitoring. The monitor shows a rate of 100 with sinus rhythm. -ECG: Sinus rhythm rate abided Left axis No PVCs QTc 420 -Laboratory studies:Interpreted by me as stated above in MDM and shown below. Imaging studies: Xrays: As interpreted by me: Portable AP upright 1 view of the chest shows no focal infiltrate CTs show: CT abdomen pelvis shows no acute pathology Procedures:none Critical Care: None Past Med/Surg History Problem List (Updated 07/31/24 @ 17:43 by Bal Pugh DO) Thrombocytopenia (Acute) Leukopenia (Acute) Sepsis (Acute) COVID Coronary artery calcification seen on CAT scan Dizziness (Acute) Abnormal EKG (Acute) Dizziness Status post right hip replacement (Acute) Status post left partial knee replacement Ureterolithiasis (Acute) Renal colic (Acute) Kidney stones Hx History of colostomy 2003- subsequent reversal History of resection of large bowel 2003 Diverticulitis 2003 Medical History Arthritis of right hip Right hip pain Effusion, left knee Localized osteoarthritis of left knee History of kidney stones passed on own Obesity History of COVID-2019- mild symptoms, denies hospitalization, resolved Sleep apnea CPAP (compliant) Diverticulitis 2003 Surgical History History of partial knee replacement Left unicompartment knee arthroplasty (02/09/2023): SAB (x2 attempts), L3-4 + regional at [facility] History of carpal tunnel release of both wrists History of colonoscopy History of appendectomy History of colostomy reversal History of tooth extraction History of sinus surgery History of colostomy 2003- subsequent reversal History of resection of large bowel 2003 Family History Other No family history of adverse response to anesthesia Social History Smoking Status: Former smoker Tobacco Type: Cigarettes Second Hand Exposure: No; Do You Dip or Chew Tobacco: No; Hx Alcohol Use: Yes Alcohol type: beer Hx Substance Use: No Preferred Language: Andorran Communication Ability: Effective Filament Shaper Required: No Beliefs That Will Affect Care: None marital status: Current Living Situation: Spouse current occupational status: employed Feels Safe at Home: Yes Assistive Devices: CPAP Allergies Allergies Allergy/AdvReac Type Severity Reaction Status Date / Time pollen extracts Allergy Mild Sneezing, Verified 02/02/24 09:41 watery eyes amoxicillin AdvReac Mild GI upset Verified 02/02/24 09:41 Dust Allergy Mild Sneezing, Uncoded 02/02/24 09:41 watery eyes Home Meds Home Medications Medication Instructions Recorded Confirmed zolpidem 5 mg tablet 5 mg PO HS PRN Sleep 04/17/21 07/31/24 aspirin 81 mg tablet,delayed 81 mg PO DAILY 07/31/24 07/31/24 release (Rosy Low Dose Aspirin) Previous Rx's Medication Instructions Recorded atorvastatin 20 mg tablet 20 mg PO QAM #30 tabs 03/10/24 Results & Data (ED) Vital Signs Vital Signs - 24 hr 07/31/24 11:57 07/31/24 12:38 07/31/24 14:00 Temperature 37.8 C H Temperature Source Temporal Artery Scan Pulse Rate 98 H 89 Pulse Rate [Apical] 95 H Pulse Rate from SpO2 Sensor Respiratory Rate 18 20 Respiratory Effort / Characteristics Non-Labored Spontaneous Respiratory Depth Normal Normal Blood Pressure 124/76 Blood Pressure [Right Arm] 116/69 Blood Pressure Mean 92 Blood Pressure Mean [Right Arm] 84 Pulse Oximetry 97 94 Oxygen Delivery Method Room Air Room Air Sepsis Recent Fever Within 48 Hours No Sepsis New/Unexplained Change in Mental Status N/A Sepsis Action Taken by Nursing No Action Required 07/31/24 14:15 07/31/24 14:30 07/31/24 15:00 Temperature Temperature Source Pulse Rate 85 82 80 Pulse Rate [Apical] Pulse Rate from SpO2 Sensor 81 Respiratory Rate 19 25 H 23 Respiratory Effort / Characteristics Respiratory Depth Blood Pressure 116/69 124/72 114/77 Blood Pressure [Right Arm] Blood Pressure Mean 84 89 90 Blood Pressure Mean [Right Arm] Pulse Oximetry 94 95 Oxygen Delivery Method Sepsis Recent Fever Within 48 Hours Sepsis New/Unexplained Change in Mental Status Sepsis Action Taken by Nursing Laboratory Data 07/31/24 12:25 07/31/24 12:25 Lab Results 07/31/24 07/31/24 Range/Units 12:25 14:09 WBC 1.69 L (4.8-10.8) K/ul RBC 4.57 L (4.70-6.10) M/uL Hgb 14.7 (14.0-18.0) g/dl Hct 42.4 (42.0-52.0) % MCV 92.8 (80.0-100.0) fL MCH 32.2 (25.0-34.0) pg MCHC 34.7 (32.0-36.0) g/dL RDW Std Deviation 43.6 (36.4-46.3) fL RDW Coeff of Edie 12.8 (11.5-14.5) % Plt Count 66 L (130-400) K/uL MPV 10.8 (9.4-12.4) fL Immature Gran % (Auto) 0.6 % Neut % (Auto) 82.9 % Lymph % (Auto) 11.2 % [place] % (Auto) 5.3 % Eos % (Auto) 0.0 % Baso % (Auto) 0.0 % Neut # (Auto) 1.40 (1.40-6.50) K/uL Lymph # (Auto) 0.19 L (1.20-3.40) K/uL [place] # (Auto) 0.09 L (0.11-0.59) K/uL Eos # (Auto) 0.00 (0.00-0.50) K/uL Baso # (Auto) 0.00 (0.00-0.20) K/uL Immature Gran # (Auto) 0.01 (0.01-0.20) K/uL Toxic Granulation 1+ Dohle Bodies 1+ Platelet Estimate Decreased L (Normal) Polychromasia 1+ Tear Drop Cells 1+ Sodium 132 L (136-145) mmol/L Potassium 3.6 (3.5-5.1) mmol/L Chloride 99 (98-107) mmol/L Carbon Dioxide 24 (21-32) mmol/L Anion Gap 9 (3-11) BUN 14 (6-23) mg/dl Creatinine 1.32 (0.6-1.4) mg/dl Est Cr Clr Drug Dosing 68.9 ml/min Est GFR ( Amer) 65.6 ml/min Est GFR (Non-Af Amer) 56.6 ml/min BUN/Creatinine Ratio 10.6 (10-20) Glucose 105 H (70-99(Fasting)) mg/dl Lactate 1.5 (0.4-2.0) mmol/L Calcium 8.7 (8.6-10.3) mg/dl Magnesium 2.1 (1.7-2.4) mg/dl Total Bilirubin 1.3 H (0.2-1.0) mg/dl Direct Bilirubin 0.2 (0-0.2) mg/dl AST 64 H (13-39) U/L ALT 34 (7-52) U/L Alkaline Phosphatase 52 (34-104) U/L Troponin I High Sens 32.9 H 35.0 H (0-20) pg/ml Total Protein 6.9 (6.0-8.3) gm/dl Albumin 4.0 (3.4-5.0) gm/dl Procalcitonin 0.60 H (0-0.5) ng/ml Adenovirus (PCR) Not Detected (NotDetected) Anaplasma Smear See Comment B. pertussis DNA (PCR) Not Detected (NotDetected) B.parapertussis DNA PCR Not Detected (NotDetected) Lyme Disease Screen Positive H (Negative) Lyme Tier 2 IgG Confirm Positive H (Negative) Lyme Tier 2 IgM Confirm Negative (Negative) C. pneumoniae DNA (PCR) Not Detected (NotDetected) Coronavirus OC43 (PCR) Not Detected (NotDetected) Coronavirus HKU1 (PCR) Not Detected (NotDetected) Coronavirus 229E (PCR) Not Detected (NotDetected) SARS-CoV-2 (PCR) DETECTED A (NotDetected) Coronavirus NL63 (PCR) Not Detected (NotDetected) Human Metapneumovir PCR Not Detected (NotDetected) Influenza Type A (PCR) Not Detected (NotDetected) Influenza Type B (PCR) Not Detected (NotDetected) M. pneumoniae (PCR) Not Detected (NotDetected) Parainfluenza 1 (PCR) Not Detected (NotDetected) Parainfluenza 2 (PCR) Not Detected (NotDetected) Parainfluenza 3 (PCR) Not Detected (NotDetected) Parainfluenza 4 (PCR) Not Detected (NotDetected) RSV (PCR) Not Detected (NotDetected) Entero/Rhino (PCR) Not Detected (NotDetected) Administered Medications Discontinued Medications Sodium Chloride (Nss) 1,000 mls @ 999 mls/hr IV .Q1H1M ONE Stop: 07/31/24 13:15 Last Infusion: 07/31/24 13:39 Dose: Infused Documented By: Admin: 07/31/24 12:30 Dose: 999 mls/hr Documented By: BENITEZ Ceftriaxone Sodium (Rocephin) 2,000 mg in 50 mls @ 100 mls/hr IV NOW STA Stop: 07/31/24 12:45 Last Infusion: 07/31/24 13:39 Dose: Infused Documented By: [email or web address] Admin: 07/31/24 12:29 Dose: 100 mls/hr Documented By: BENITEZ Doxycycline Hyclate 100 mg/ (Dextrose) 100 mls @ 50 mls/hr IV NOW STA Stop: 07/31/24 16:04 Last Infusion: 07/31/24 17:28 Dose: Infused Documented By: Admin: 07/31/24 15:09 Dose: 50 mls/hr Documented By: BENITEZ Sodium Chloride (Nss) 1,000 mls @ 999 mls/hr IV .Q1H1M ONE Stop: 07/31/24 15:18 Last Infusion: 07/31/24 16:23 Dose: Infused Documented By: Admin: 07/31/24 15:08 Dose: 999 mls/hr Documented By: BENITEZ Sodium Chloride (Nss) 500 mls @ 999 mls/hr IV .Q31M ONE Stop: 07/31/24 16:05 Last Admin: 07/31/24 17:27 Dose: Not Given Documented By: BENITEZ Ioversol (Optiray 320 100ml) 94 ml IV ONCE ONE Stop: 07/31/24 12:49 Last Admin: 07/31/24 12:48 Dose: 94 ml Documented By: CHEIKH Ondansetron HCl (Ondansetron Inj 2 Mg/Ml 2 Ml Vial) 4 mg IV NOW STA Stop: 07/31/24 14:15 Last Admin: 07/31/24 14:16 Dose: 4 mg Documented By: BENITEZ Imaging Data Radiologist's Impression: Abdomen/Pelvis CT 07/31/24 12:15 CT abd pelvis IV con only CLINICAL HISTORY: n/v/d TECHNIQUE: Helical axial images of the abdomen and pelvis were obtained and displayed. Automated dose lowering techniques and/or adjustment according to patient size were utilized for this exam. This exam was performed with intravenous contrast. CT DOSE: 1274.05 mGy.cm COMPARISON: Comparison is made to CT abdomen pelvis 04/17/2021 FINDINGS: Lower chest: Bibasilar atelectasis versus scarring is seen. Liver: Hepatic steatosis is noted. Likely hepatic cysts are stable from prior exam. Gallbladder and biliary tree: No calcified gallstones. Normal caliber wall. No intra- or extrahepatic biliary ductal dilation. Pancreas: Fatty replacement of the pancreas is seen. Spleen: Unremarkable. Adrenals: Unremarkable. Kidneys and ureters: Right renal cysts are seen. Bladder: Limited evaluation due to underdistention. Reproductive organs: Prostatomegaly is seen. Bowel: Posterior the changes of sigmoid anastomosis noted. Patient is status post appendectomy. A few colonic diverticula are seen. Lymph nodes Retroperitoneal: Subcentimeter devin hepatis nodes are noted. Pelvic: Unremarkable. Mesenteric: Unremarkable. Peritoneum: Normal. Vessels: Atherosclerotic calcifications are seen. Abdominal wall: Multiple fat-containing umbilical and supraumbilical hernias are seen. Bones: Right hip arthroplasty is seen. Degenerative changes are noted in the spine. IMPRESSION: 1. No acute abnormalities. 2. Diverticulosis without diverticulitis. 3. Umbilical and supraumbilical hernias as above. ACT 112: Negative or not required by law. Electronically signed by: Delano Reynolds M.D. 07/31/2024 2:08 PM Chest X-Ray 07/31/24 12:16 XR chest 1V portable CLINICAL HISTORY: Sepsis TECHNIQUE: Single frontal radiograph of the chest was obtained. Comparison: Comparison is made to chest radiograph 03/09/2024 FINDINGS: No lines and tubes are seen. Cardiomegaly is noted. The lungs are clear. No evidence of pleural effusion or pneumothorax. IMPRESSION: No acute abnormalities and in particular no radiographic evidence of pneumonia. ACT 112: Negative or not required by law. Electronically signed by: Delano Reynolds M.D. 07/31/2024 12:55 PM Discharge Plan Visit Data Chief Complaint: Flu Like Symptoms Stated Complaint: SHIVERS, SWEATS, LOWER ABD PAIN, FEELS FLUISH ED Provider: Bal Pugh Discharge Problem: Sepsis, Leukopenia, Thrombocytopenia Discharge Problem: Sepsis Qualifiers: Sepsis type: sepsis due to unspecified organism Sepsis acute organ dysfunction status: unspecified Qualified Code(s): A41.9 - Sepsis, unspecified organism Leukopenia Qualifiers: Leukopenia type: unspecified Qualified Code(s): D72.819 - Decreased white blood cell count, unspecified
[2024-07-31] MEDS: cefTRIAXone SODIUM 2,000 MG/50 ML BAG IV STA (12:29)
[2024-07-31] MEDS: SODIUM CHLORIDE 0.9% 1,000 ML IV ONE ×2 (12:30→15:08)
[2024-07-31] MEDS: OPTIRAY 320 100ml IV ONE (12:48)
--- NOTE | 2024-07-31 12:57 | XRay Report ---
XR chest 1V portable CLINICAL HISTORY: Sepsis TECHNIQUE: Single frontal radiograph of the chest was obtained. Comparison: Comparison is made to chest radiograph 03/09/2024 FINDINGS: No lines and tubes are seen. Cardiomegaly is noted. The lungs are clear. No evidence of pleural effus ion or pneumothorax. IMPRESSION: No acute abnormalities and in particular no radiographic evidence of pneumonia. ACT 112: Negative or not required by law. Electronically signed by: Delano Reynolds M.D. 07/31/2024 12:55 PM
[2024-07-31 13:05] LABS: BUN Creatinine Ratio 10.6 (10-20); Bilirubin Direct 0.2 mg/dl (0-0.2); Bilirubin,Total 1.3 mg/dl (0.2-1.0); Calcium 8.7 mg/dl (8.6-10.3); Creatinine Clr Calc Pharmacy 68.9 ml/min; Est GFR (African American) 65.6 ml/min; Est GFR (Non-African American) 56.6 ml/min; Magnesium 2.1 mg/dl (1.7-2.4); Potassium 3.6 mmol/L (3.5-5.1); Total Protein 6.9 gm/dl (6.0-8.3)
[2024-07-31 13:10] LABS: Troponin I High Sensitivity 32.9 pg/ml (0-20)
[2024-07-31 13:33] LABS: Lyme Screen Rflx Confirmation Positive (Negative)
[2024-07-31 13:41] LABS: Dohle Bodies 1+; Hematocrit (blood only) 42.4 % (42.0-52.0); Hemoglobin 14.7 g/dl (14.0-18.0); Immature Granulocytes # (auto) 0.01 K/uL (0.01-0.20); Immature Granulocytes % (auto) 0.6 %; Lymphocytes # (auto) 0.19 K/uL (1.20-3.40); Lymphocytes % (auto) 11.2 %; Mean Corpuscular Hemoglobin 32.2 pg (25.0-34.0); Mean Corpuscular Hgb Conc 34.7 g/dL (32.0-36.0); Mean Corpuscular Volume 92.8 fL (80.0-100.0); Mean Platelet Volume 10.8 fL (9.4-12.4); Monocytes # (auto) 0.09 K/uL (0.11-0.59); Monocytes % (auto) 5.3 %; Neutrophils % (auto) 82.9 %; Platelet Count 66 K/uL (130-400); Platelet Estimate Decreased (Normal); Polychromasia 1+; RDW Coefficient of Variation 12.8 % (11.5-14.5); RDW Standard Deviation 43.6 fL (36.4-46.3); Red Blood Count 4.57 M/uL (4.70-6.10); Tear Drop Cells 1+; Toxic Granulation 1+; White Blood Count 1.69 K/ul (4.8-10.8)
[2024-07-31 13:42] LABS: Adenovirus PCR Not Detected (NotDetected); Bordetella parapertussis PCR Not Detected (NotDetected); Bordetella pertussis PCR Not Detected (NotDetected); Chlamydia pneumoniae PCR Not Detected (NotDetected); Coronavirus 229E PCR Not Detected (NotDetected); Coronavirus CoV-2 (COVID19)PCR DETECTED (NotDetected); Coronavirus HKU1 PCR Not Detected (NotDetected); Coronavirus NL63 PCR Not Detected (NotDetected); Coronavirus OC43PCR Not Detected (NotDetected); Human Metapneumovirus PCR Not Detected (NotDetected); Influenza A PCR Not Detected (NotDetected); Influenza B PCR Not Detected (NotDetected); Mycoplasma pneumoniae PCR Not Detected (NotDetected); Parainfluenza Virus 1 PCR Not Detected (NotDetected); Parainfluenza Virus 2 PCR Not Detected (NotDetected); Parainfluenza Virus 3 PCR Not Detected (NotDetected); Parainfluenza Virus 4 PCR Not Detected (NotDetected); Respiratory Syncytial VirusPCR Not Detected (NotDetected); Rhinovirus/Enterovirus PCR Not Detected (NotDetected)
[2024-07-31 14:06] LABS: Lyme Ab IgG 2nd Tier Confirm Positive (Negative)
[2024-07-31 14:07] LABS: Lyme Ab IgM 2nd Tier Confirm Negative (Negative)
--- NOTE | 2024-07-31 14:11 | CT Scan Report ---
CT abd pelvis IV con only CLINICAL HISTORY: n/v/d TECHNIQUE: Helical axial images of the abdomen and pelvis were obtained and displayed. Automated dose lowering techniques and/or adjustment according to patient size were utilized for this exam. This e xam was performed with intravenous contrast. CT DOSE: 1274.05 mGy.cm COMPARISON: Comparison is made to CT abdomen pelvis 04/17/2021 FINDINGS: Lower chest: Bibasilar atelectasis versus scarring is seen. Liver: Hepatic steatosis is noted. Likely hepatic cysts are stable from prior exam. Gallbladder and biliary tree: No calcified gallstones. Normal caliber wall. No intra- or extrahepatic biliary ductal dilation. Pancreas: Fatty replacement of the pancreas is seen. Spleen: Unremarkable. Adrenals: Unremarkable. Kidneys and ureters: Right renal cysts are seen. Bladder: Limited evaluation due to underdistention. Reproductive organs: Prostatomegaly is seen. Bowel: Posterior the changes of sigmoid anastomosis noted. Patient is status post appendectomy. A few colonic diverticula are seen. Lymph nodes Retroperitoneal: Subcentimeter devin hepatis nodes are noted. Pelvic: Unremarkable. Mesenteric: Unremarkable. Peritoneum: Normal. Vessels: Atherosclerotic calcifications are seen. Abdominal wall: Multiple fat-containing umbilical and supraumbilical hernias are seen. Bones: Right hip arthroplasty is seen. Degenerative changes are noted in the spine. IMPRESSION: 1. No acute abnormalities. 2. Diverticulosis without diverticulitis. 3. Umbilical and supraumbilical hernias as above. ACT 112: Negative or not required by law. Electronically signed by: Delano Reynolds M.D. 07/31/2024 2:08 PM
[2024-07-31] MEDS: ONDANSETRON INJ 2 MG/ML 2 ML VIAL IV STA (14:16)
[2024-07-31 14:40] LABS: Appearance Urine Cloudy (Clear); Bacteria Urine Automated None Seen (None Seen); Bilirubin Urine 1+ (Negative); Blood Urine Trace (Negative); Color Urine Dark Yellow; Glucose Urine UA Negative (Negative); Granular Casts Urine Present /lpf (None Prsent); Ketones Urine Trace (Negative); Leukocyte Esterase Urine Trace (Negative); Mucus Urine Present (None Prsent); Nitrite Urine Negative (Negative); Protein Urine 2+ (Negative); RBC Urine Automated 0-2 /hpf (0-2); Specific Gravity Urine 1.031 (1.000-1.030); Urobilinogen Urine Negative (Negative); WBC Urine Automated 0-5 /hpf (0-5); pH Urine 5.5 (4.5-7.5)
[2024-07-31] MEDS ORDERED: ACETAMINOPHEN 325 MG TAB PO PRN (15:03)
[2024-07-31] MEDS: DOXYCYCLINE HYCLATE 100 MG in DEXTROSE 5% MINI-B 100 ML IV STA (15:09)
--- NOTE | 2024-07-31 15:14 | History & Physical Report ---
Date of Service July 31, 2024 Assessment & Plan (1) COVID: Plan #Flu-like illness likely 2/2 COVID vs. flu #Fever #Thrombocytopenia, neutropenia 2/2 lyme dx vs. acute illness -supportive measures, including hydration, antipyretics as needed, rest -zofran -I am unclear as the etiology of his cell line abnormalities, will request ID consultation to evaluate for need to tx for Lyme -will cover for Lyme for now with doxy #NSTEMI likely type 2 in the setting of the above -trend to max -denies cp, palpitations -stat EKG/trops for chest pain #EMILIANO on CPAP -CPAP QHS IVF Diet Dvt ppx History of Present Illness Chief Complaint: flu like illness Primary Care Provider: Rubin Adames MD 64M pmh diverticulitis, nephrolithiasis, EMILIANO on CPAP, CAD seen on CT, vertigo who presents for flu like illness. Patient states that he had COVID about 1 month ago. Does not feel he let himself heal properly, was working and went on vacation. While coming back from vacation felt as though he was getting sick. Initially with chills, then developed shakes, sweats, n/v and diarrhea. Does not usually get sick, though these symptoms are similar to the ones that he had when he had COVID last. Got the first COVID vaccine, no other ones. Did not get the flu vaccine this year. Denies fever, sob, productive cough, cp, any other symptoms. 20 pack year smoker though quit about 20 years ago. Allergies Allergy/AdvReac Type Severity Reaction Status Date / Time pollen extracts Allergy Mild Sneezing, Verified 02/02/24 09:41 watery eyes amoxicillin AdvReac Mild GI upset Verified 02/02/24 09:41 Dust Allergy Mild Sneezing, Uncoded 02/02/24 09:41 watery eyes Home Medications Medication Instructions Recorded Confirmed Type zolpidem 5 mg tablet 5 mg PO HS PRN Sleep 04/17/21 07/31/24 History atorvastatin 20 mg tablet 20 mg PO QAM #30 tabs 03/10/24 07/31/24 Rx aspirin 81 mg tablet,delayed 81 mg PO DAILY 07/31/24 07/31/24 History release (Rosy Low Dose Aspirin) Past Med/Surg History Problem List (Updated 07/31/24 @ 15:21 by Neo Grullon MD) COVID Coronary artery calcification seen on CAT scan Dizziness (Acute) Abnormal EKG (Acute) Dizziness Status post right hip replacement (Acute) Status post left partial knee replacement Ureterolithiasis (Acute) Renal colic (Acute) Kidney stones Hx History of colostomy 2003- subsequent reversal History of resection of large bowel 2004 Diverticulitis 2003 Medical History Arthritis of right hip Right hip pain Effusion, left knee Localized osteoarthritis of left knee History of kidney stones passed on own Obesity History of COVID-19 2019- mild symptoms, denies hospitalization, resolved Sleep apnea CPAP (compliant) Diverticulitis 2003 Surgical History History of partial knee replacement Left unicompartment knee arthroplasty (02/09/2023): SAB (x2 attempts), L3-4 + regional at [facility] History of carpal tunnel release of both wrists History of colonoscopy History of appendectomy History of colostomy reversal History of tooth extraction History of sinus surgery History of colostomy 2003- subsequent reversal History of resection of large bowel 2003 Family History Other No family history of adverse response to anesthesia Social History Smoking Status: Former smoker Tobacco Type: Cigarettes Second Hand Exposure: No; Do You Dip or Chew Tobacco: No; Hx Alcohol Use: Yes Alcohol type: beer Hx Substance Use: No Preferred Language: Bulgarian Communication Ability: Effective 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 Beliefs That Will Affect Care: None marital status: Current Living Situation: Spouse current occupational status: employed Feels Safe at Home: Yes Assistive Devices: CPAP Review of Systems Constitutional: + chills, + sweats, + body aches, + fati waa and + weakness; no fever Respiratory: no cough, no change in sputum, no dyspnea and no wheezing Gastrointestinal: + nausea, + vomiting, + change in stools and + diarrhea/loose stools; no abdominal pain Physical Exam Constitutional: healthy appearing and + overweight Respiratory: normal respiratory effort, lungs clear to auscultation Gastrointestinal (Abdomen): normal bowel sounds, soft, nontender, no hepatosplenomegaly Results & Data Results & Data Vital Signs (Past 12 Hours) Vital Signs Temp Pulse Pulse Resp BP BP Pulse Ox 07/31/24 14:00 95 H 20 116/69 94 07/31/24 12:38 89 07/31/24 11:57 37.8 C H 98 H 18 124/76 97 O2 Del Method 07/31/24 14:00 Room Air 07/31/24 12:38 07/31/24 11:57 Room Air Laboratory Results Abnormal lab results 07/31/24 07/31/24 07/31/24 Range/Units 12:25 14:09 Unknown WBC 1.69 L (4.8-10.8) K/ul RBC 4.57 L (4.70-6.10) M/uL Plt Count 66 L (130-400) K/uL Lymph # (Auto) 0.19 L (1.20-3.40) K/uL [place] # (Auto) 0.09 L (0.11-0.59) K/uL Platelet Estimate Decreased L (Normal) Sodium 132 L (136-145) mmol/L Glucose 105 H (70-99(Fasting)) mg/dl Total Bilirubin 1.3 H (0.2-1.0) mg/dl AST 64 H (13-39) U/L Troponin I High Sens 32.9 H 35.0 H (0-20) pg/ml Procalcitonin 0.60 H (0-0.5) ng/ml Urine Appearance Cloudy A (Clear) Ur Specific [place] 1.031 H (1.000-1.030) Urine Protein 2+ H (Negative) Urine Ketones Trace H (Negative) Urine Blood Trace H (Negative) Urine Bilirubin 1+ H (Negative) Ur Leukocyte Esterase Trace H (Negative) U Hyaline Cast (Auto) 3-5 H (0-2) /lpf U Epithel Cells (Auto) 3-5 H (0-2) /hpf Granular Casts Present A (None Prsent) /lpf Urine Mucus Present A (None Prsent) Lyme Disease Screen Positive H (Negative) Lyme Tier 2 IgG Confirm Positive H (Negative) SARS-CoV-2 (PCR) DETECTED A (NotDetected) Diagnostic Findings Abdomen/Pelvis CT 07/31/24 12:15 CT abd pelvis IV con only CLINICAL HISTORY: n/v/d TECHNIQUE: Helical axial images of the abdomen and pelvis were obtained and displayed. Automated dose lowering techniques and/or adjustment according to patient size were utilized for this exam. This exam was performed with intravenous contrast. CT DOSE: 1274.05 mGy.cm COMPARISON: Comparison is made to CT abdomen pelvis 04/17/2021 FINDINGS: Lower chest: Bibasilar atelectasis versus scarring is seen. Liver: Hepatic steatosis is noted. Likely hepatic cysts are stable from prior exam. Gallbladder and biliary tree: No calcified gallstones. Normal caliber wall. No intra- or extrahepatic biliary ductal dilation. Pancreas: Fatty replacement of the pancreas is seen. Spleen: Unremarkable. Adrenals: Unremarkable. Kidneys and ureters: Right renal cysts are seen. Bladder: Limited evaluation due to underdistention. Reproductive organs: Prostatomegaly is seen. Bowel: Posterior the changes of sigmoid anastomosis noted. Patient is status post appendectomy. A few colonic diverticula are seen. Lymph nodes Retroperitoneal: Subcentimeter devin hepatis nodes are noted. Pelvic: Unremarkable. Mesenteric: Unremarkable. Peritoneum: Normal. Vessels: Atherosclerotic calcifications are seen. Abdominal wall: Multiple fat-containing umbilical and supraumbilical hernias are seen. Bones: Right hip arthroplasty is seen. Degenerative changes are noted in the sp ine. IMPRESSION: 1. No acute abnormalities. 2. Diverticulosis without diverticulitis. 3. Umbilical and supraumbilical hernias as above. ACT 112: Negative or not required by law. Electronically signed by: Delano Reynolds M.D. 07/31/2024 2:08 PM Chest X-Ray 07/31/24 12:16 XR chest 1V portable CLINICAL HISTORY: Sepsis TECHNIQUE: Single frontal radiograph of the chest was obtained. Comparison: Comparison is made to chest radiograph 03/09/2024 FINDINGS: No lines and tubes are seen. Cardiomegaly is noted. The lungs are clear. No evidence of pleural effusion or pneumothorax. IMPRESSION: No acute abnormalities and in particular no radiographic evidence of pneumonia. ACT 112: Negative or not required by law. Electronically signed by: Delano Reynolds M.D. 07/31/2024 12:55 PM Code Status & VTE Plan VTE Prophylaxis Plan VTE Prophylaxis will be ordered: Yes
[2024-07-31] MEDS: SODIUM CHLORIDE 0.9% 500 ML IV ONE (17:27)
[2024-07-31] MEDS ORDERED: MoRPHine SULFATE 2 MG/ML CARP IV PRN (17:40)
[2024-07-31] MEDS: HYDROCODONE/ACETAMOPHEN 5/325MG TAB PO PRN (18:01)
[2024-07-31] MEDS: SODIUM CHLORIDE 0.9% 1,000 ML IV SCH (18:03)
[2024-07-31] MEDS: ONDANSETRON INJ 2 MG/ML 2 ML VIAL IV PRN (21:28)
[2024-07-31] MEDS: ZOLPIDEM TARTRATE 5 MG TAB PO PRN (21:34)
[2024-08-01] MEDS: DOXYCYCLINE HYCLATE 100 MG in DEXTROSE 5% MINI-B 100 ML IV SCH (03:10)
[2024-08-01 06:40] LABS: Hematocrit (blood only) 35.6 % (42.0-52.0); Hemoglobin 12.5 g/dl (14.0-18.0); Mean Corpuscular Hemoglobin 32.8 pg (25.0-34.0); Mean Corpuscular Hgb Conc 35.1 g/dL (32.0-36.0); Mean Corpuscular Volume 93.4 fL (80.0-100.0); Mean Platelet Volume 11.5 fL (9.4-12.4); Platelet Count 48 K/uL (130-400); RDW Coefficient of Variation 13.1 % (11.5-14.5); RDW Standard Deviation 44.9 fL (36.4-46.3); Red Blood Count 3.81 M/uL (4.70-6.10); White Blood Count 1.68 K/ul (4.8-10.8)
[2024-08-01 06:44] LABS: Albumin Globulin Ratio 1.3 (0.9-2); Albumin Level 3.1 gm/dl (3.4-5.0); Bilirubin,Total 0.8 mg/dl (0.2-1.0); Calcium 7.7 mg/dl (8.6-10.3); Creatinine Clr Calc Pharmacy 86.1 ml/min; Est GFR (African American) 82.7 ml/min; Est GFR (Non-African American) 71.4 ml/min; Globulin 2.3 gm/dl (2.5-4.0); Potassium 3.3 mmol/L (3.5-5.1); Total Protein 5.4 gm/dl (6.0-8.3)
[2024-08-01 06:45] LABS: Basophils # (auto) 0.01 K/uL (0.00-0.20); Basophils % (auto) 0.6 %; Immature Granulocytes # (auto) 0.01 K/uL (0.01-0.20); Immature Granulocytes % (auto) 0.6 %; Lymphocytes # (auto) 0.52 K/uL (1.20-3.40); Monocytes # (auto) 0.25 K/uL (0.11-0.59); Monocytes % (auto) 14.9 %; Neutrophils # (auto) 0.89 K/uL (1.40-6.50); Neutrophils % (auto) 52.9 %; Platelet Estimate Decreased (Normal)
[2024-08-01] MEDS: ATORVASTATIN 20 MG TAB PO SCH (07:53)
--- NOTE | 2024-08-01 10:14 | Hospitalist Progress Note ---
Date of Service August 01, 2024 Assessment & Plan (1) COVID: Plan #Fever #COVID 19 infection Resp PCR positive for COVID CXR did not show acute abnormalities No oxygen requirement at this time Continue supportive care Get stool pcr, c diff Replete hypokalemia #Thrombocytopenia, neutropenia Likely related to acute illness above Patient's lyme screen was positive IgG was positive and IgM negative which makes it likely old lyme infection Admitting Dr had consulted ID to get their impression of that. Currently on doxycycline. Monitor cell counts #Elevated troponin Troponin is mildly elevated and flat EKG reviewed. incomplete RBBB. Reviewed stress Echo from 02/2024. No ischemia noted at the time Denies any chest pain, SOB #EMILIANO on CPAP Continue CPAP QHS DVT ppx: Ambulate. SCD. Holding off pharm agent in view of thrombocytopenia Code status: Full I spent a total of 50 minutes coordinating, documenting and providing care for this patient excluding time spent in performance of separately billed services Admission and Anticipated Discharge Date Admission Date: July 31, 2024 Subjective Patient seen and examined Reports still feeling weak, ill Reports nausea. No vomiting. Reported some abd pain prior to admission. None at this time No fever this AM. Chills have resolved Reports diarrhea, watery, nonbloody. Last was yesterday Denied cough, chest pain, SOB, sore throat, sinus congestion Reports feeling 'whoozy'. No headache or dizziness Physical Exam Constitutional: + well hydrated and + obese; no acute di stress Eyes: PERRL, conjunctivae normal, anicteric sclerae ENMT: external ear and nose normal, oropharynx normal Respiratory: normal respiratory effort, lungs clear to auscultation Cardiovascular: Rate/Rhythm: regular rate and regular rhythm Gastrointestinal (Abdomen): normal bowel sounds, soft, nontender, no hepatosplenomegaly Musculoskeletal: no cyanosis or clubbing, extremities motor strength 5/5 Neurologic: PERRL, EOMI, accommodation nl, no face palsy, no dysarthria Psychiatric: A+Ox3, euthymic affect Results & Data Results & Data Vital Signs (Past 12 Hours) Vital Signs Temp Pulse Resp BP Pulse Ox O2 Del Method 08/01/24 07:45 36.5 C 57 L 20 106/70 99 BiPAP Laboratory Results Abnormal lab results 07/31/24 07/31/24 07/31/24 Range/Units 12:25 14:09 15:59 WBC 1.69 L (4.8-10.8) K/ul RBC 4.57 L (4.70-6.10) M/uL Hgb (14.0-18.0) g/dl Hct (42.0-52.0) % Plt Count 66 L (130-400) K/uL Neut # (Auto) (1.40-6.50) K/uL Lymph # (Auto) 0.19 L (1.20-3.40) K/uL [place] # (Auto) 0.09 L (0.11-0.59) K/uL Platelet Estimate Decreased L (Normal) Sodium 132 L (136-145) mmol/L Potassium (3.5-5.1) mmol/L Glucose 105 H (70-99(Fasting)) mg/dl Calcium (8.6-10.3) mg/dl Total Bilirubin 1.3 H (0.2-1.0) mg/dl AST 64 H (13-39) U/L Troponin I High Sens 32.9 H 35.0 H 36.3 H (0-20) pg/ml Total Protein (6.0-8.3) gm/dl Albumin (3.4-5.0) gm/dl Globulin (2.5-4.0) gm/dl Procalcitonin 0.60 H (0-0.5) ng/ml Urine Appearance (Clear) Ur Specific [place] (1.000-1.030) Urine Protein (Negative) Urine Ketones (Negative) Urine Blood (Negative) Urine Bilirubin (Negative) Ur Leukocyte Esterase (Negative) U Hyaline Cast (Auto) (0-2) /lpf U Epithel Cells (Auto) (0-2) /hpf Granular Casts (None Prsent) /lpf Urine Mucus (None Prsent) Lyme Disease Screen Positive H (Negative) Lyme Tier 2 IgG Confirm Positive H (Negative) SARS-CoV-2 (PCR) DETECTED A (NotDetected) 07/31/24 07/31/24 08/01/24 Range/Units 17:53 Unknown 05:45 WBC 1.68 L (4.8-10.8) K/ul RBC 3.81 L (4.70-6.10) M/uL Hgb 12.5 L (14.0-18.0) g/dl Hct 35.6 L (42.0-52.0) % Plt Count 48 L (130-400) K/uL Neut # (Auto) 0.89 L* (1.40-6.50) K/uL Lymph # (Auto) 0.52 L (1.20-3.40) K/uL [place] # (Auto) (0.11-0.59) K/uL Platelet Estimate Decreased L (Normal) Sodium (136-145) mmol/L Potassium 3.3 L (3.5-5.1) mmol/L Glucose 107 H (70-99(Fasting)) mg/dl Calcium 7.7 L (8.6-10.3) mg/dl Total Bilirubin (0.2-1.0) mg/dl AST 56 H (13-39) U/L Troponin I High Sens 36.4 H (0-20) pg/ml Total Protein 5.4 L D (6.0-8.3) gm/dl Albumin 3.1 L (3.4-5.0) gm/dl Globulin 2.3 L (2.5-4.0) gm/dl Procalcitonin (0-0.5) ng/ml Urine Appearance Cloudy A (Clear) Ur Specific [place] 1.031 H (1.000-1.030) Urine Protein 2+ H (Negative) Urine Ketones Trace H (Negative) Urine Blood Trace H (Negative) Urine Bilirubin 1+ H (Negative) Ur Leukocyte Esterase Trace H (Negative) U Hyaline Cast (Auto) 3-5 H (0-2) /lpf U Epithel Cells (Auto) 3-5 H (0-2) /hpf Granular Casts Present A (None Prsent) /lpf Urine Mucus Present A (None Prsent) Lyme Disease Screen (Negative) Lyme Tier 2 IgG Confirm (Negative) SARS-CoV-2 (PCR) (NotDetected)
[2024-08-01] MEDS: POTASSIUM CHLORIDE CRTAB 20 MEQ TABCR PO STA (10:51)
[2024-08-01 12:11] LABS: iSTAT Creatinine 1.4 mg/dl (0.6-1.3); iSTAT Hemoglobin 14.6 g/dl (14.0-18.0); iSTAT Ionized Calcium 1.16 mmol/l (1.12-1.32); iSTAT Potassium 3.6 mmol/L (3.3-5.0)
--- NOTE | 2024-08-01 13:36 | Infectious Disease Consult ---
"Date of Service August 01, 2024 Telehealth Information I performed this visit using a real-time telehealth connection between my location and the patients location ([facility]). After connecting through interactive tele-video, patient was identified by name and date of and/or wristband check.Patient (or authorized healthcare off premise service representative) was informed that this was a telemedicine visit and it was being conducted confidentially over secure lines. My office door was closed and no one else was present in the room with me.Patient (or authorized healthcare off premise service representative) provided consent to proceed with the visit, expressed an understanding of privacy and security of the telemedicine visit, and gave permission to have a hospital off premise service representative in the room in order to assist with the visit and to conduct portions of the visit, as needed. I informed the patient (or authorized healthcare off premise service representative) that I reviewed their record and presented the opportunity for them to ask any questions regarding the visit today. The patient agreed to participate. Assessment & Plan (1) Thrombocytopenia: Plan: trend platelets (2) Leukopenia: Plan: Trend WBC (3) COVID: Plan: Continue isolation precautions (4) Lyme disease, unspecified: Plan: Continue Doxycycline as anaplasma has not been ruled out Plan Patient who presented with fever ,chills ,nausea and diarrhea who had previously been diagnosed with COVID19 again tested positive for COVID19 and was found to have leukopenia and thrombocytopenia .He also tested positive for Lyme disease but Lyme disease does not cause cytopenias although anaplasma can .Recommend continuing doxycycline pending anaplasma PCR finalization .Thank you for allowing us to participate in the care of this patient ID will continue to follow History of Present Illness History of Present Illness 64 y/o M PMHx diverticulitis, nephrolithiasis, EMILIANO on CPAP, CAD , vertigo who presented for flu like illness and tested positive for COVID19 and because of her leukopenia and thrombocytopenia he was tested for tick borne illness and so far his Lyme test was positive but likely prior exposure anaplasma pending on doxycycline Allergies Allergy/AdvReac Type Severity Reaction Status Date / Time pollen extracts Allergy Mild Sneezing, Verified 02/02/24 09:41 watery eyes amoxicillin AdvReac Mild GI upset Verified 02/02/24 09:41 Dust Allergy Mild Sneezing, Uncoded 02/02/24 09:41 watery eyes Home Medications Medication Instructions Recorded Confirmed Type zolpidem 5 mg tablet 5 mg PO HS PRN Sleep 04/17/21 07/31/24 History atorvastatin 20 mg tablet 20 mg PO QAM #30 tabs 03/10/24 07/31/24 Rx aspirin 81 mg tablet,delayed 81 mg PO DAILY 07/31/24 07/31/24 History release (Rosy Low Dose Aspirin) Patient History Medical History (Updated 08/01/24 @ 13:44 by Katy Potter MD) Arthritis of right hip Right hip pain Effusion, left knee Localized osteoarthritis of left knee History of kidney stones passed on own Obesity History of COVID-2019- mild symptoms, denies hospitalization, resolved Sleep apnea CPAP (compliant) Surgical History (Updated 03/20/24 @ 00:11 by Jorge Stroud) History of partial knee replacement Left unicompartment knee arthroplasty (02/09/2023): SAB (x2 attempts), L3-4 + regional at [facility] History of carpal tunnel release of both wrists History of colonoscopy History of appendectomy History of colostomy reversal History of tooth extraction History of sinus surgery Family History Other No family history of adverse response to anesthesia Social History Smoking Status: Former smoker Tobacco Type: Cigarettes Second Hand Exposure: No; Do You Dip or Chew Tobacco: No; Hx Alcohol Use: Yes Alcohol type: beer Hx Substance Use: No Preferred Language: Luxembourger Communication Ability: Effective Equipment Associate Required: No Beliefs That Will Affect Care: None marital status: Current Living Situation: Spouse Current Living Situation Comment: lives at home with spouse current occupational status: employed Feels Safe at Home: Yes Assistive Devices: CPAP Results & Data Vital Signs (Past 12 Hours) Vital Signs Temp Pulse Resp BP Pulse Ox O2 Del Method 08/01/24 11:44 36.5 C 62 16 127/81 98 Room Air 08/01/24 07:45 36.5 C 57 L 20 106/70 99 BiPAP Laboratory Results WBC 1680 PLT [id number] Diagnostic Findings Test Result Flag Reference Site Lyme Ab Screen | Positive | H | Negative | (2) Leukopenia Leukopenia type: unspecified Qualified Code(s): D72.819 - Decreased white blood cell count, unspecified"
[2024-08-01 16:07] LABS: Adenovirus F 40/41 PCR Not Detected (NotDetected); Astrovirus PCR Not Detected (NotDetected); Campylobacter PCR Not Detected (NotDetected); Cryptosporidium PCR Not Detected (NotDetected); Cyclospora cayetanensis PCR Not Detected (NotDetected); Entamoeba histolytica PCR Not Detected (NotDetected); Enteroaggregative E.coli(EAEC) Not Detected (NotDetected); Enteropathogenic E.coli (EPEC) Not Detected (NotDetected); Enterotoxigenic E.coli (ETEC) Not Detected (NotDetected); Giardia lamblia PCR Not Detected (NotDetected); Norovirus GI/GII PCR Not Detected (NotDetected); Plesiomonas shigelloides PCR Not Detected (NotDetected); Rotavirus A PCR Not Detected (NotDetected); Salmonella PCR Not Detected (NotDetected); Sapovirus PCR Not Detected (NotDetected); Shiga-like Toxin E.coli (STEC) Not Detected (NotDetected); Shigella/Enteroinvasive E.coli Not Detected (NotDetected); Vibrio cholerae PCR Not Detected (NotDetected); Vibrio species PCR Not Detected (NotDetected); Yersinia enterocolitica PCR Not Detected (NotDetected)
[2024-08-02 00:05] VITALS: RESP 18; O2SAT 98
[2024-08-02] MEDS ORDERED: Nursing to Pharmacy Communication SCH (02:15)
[2024-08-02 05:02] LABS: Hematocrit (blood only) 33.9 % (42.0-52.0); Hemoglobin 11.8 g/dl (14.0-18.0); Mean Corpuscular Hemoglobin 32.3 pg (25.0-34.0); Mean Corpuscular Hgb Conc 34.8 g/dL (32.0-36.0); Mean Corpuscular Volume 92.9 fL (80.0-100.0); Mean Platelet Volume 11.6 fL (9.4-12.4); Platelet Count 52 K/uL (130-400); RDW Coefficient of Variation 13.2 % (11.5-14.5); Red Blood Count 3.65 M/uL (4.70-6.10); White Blood Count 3.03 K/ul (4.8-10.8)
[2024-08-02 05:11] LABS: BUN Creatinine Ratio 12.7 (10-20); Calcium 8.1 mg/dl (8.6-10.3); Est GFR (African American) 89.6 ml/min; Est GFR (Non-African American) 77.3 ml/min; Magnesium 1.9 mg/dl (1.7-2.4); Phosphorus 2.8 mg/dl (2.5-4.9); Potassium 3.9 mmol/L (3.5-5.1)
--- NOTE | 2024-08-02 06:13 | Electrocardiogram Report ---
Test Reason : Blood Pressure : */* mmHG Vent. Rate : 90 BPM Atrial Rate : 90 BPM P-R Int : 120 ms QRS Dur : 106 ms QT Int : 344 ms P-R-T Axes : 52 -62 96 degrees QTcB Int : 420 ms Normal sinus rhythm Left axis deviation Incomplete right bundle branch block Minimal voltage criteria for LVH, may be normal variant ( Remi product ) Abnormal QRS-T angle, consider primary T wave abnormality Abnormal ECG When compared with ECG of 10-Mar-2024 11:23, No significant change Confirmed by Guanako Fulton ([id number]) on 08/02/2024 6:13:05 AM Referred By: Confirmed By: Guanako Fulton
--- NOTE | 2024-08-02 06:56 | Electrocardiogram Report ---
Test Reason : Blood Pressure : */* mmHG Vent. Rate : 64 BPM Atrial Rate : 64 BPM P-R Int : 130 ms QRS Dur : 116 ms QT Int : 430 ms P-R-T Axes : 73 -57 92 degrees QTcB Int : 443 ms Normal sinus rhythm Left axis deviation Incomplete right bundle branch block Nonspecific ST and T wave abnormality Abnormal ECG When compared with ECG of 31-Jul-2024 12:17, (unconfirmed) No significant change was found Confirmed by Guanako Fulton ([id number]) on 08/02/2024 6:56:39 AM Referred By: REFERRED SELF Confirmed By: Guanako Fulton
[2024-08-02 07:29] VITALS: TEMP 98.1
--- NOTE | 2024-08-02 13:04 | Discharge Summary ---
Date of Service August 02, 2024 Admission HPI Per Admitting Provider 64M pmh diverticulitis, nephrolithiasis, EMILIANO on CPAP, CAD seen on CT, vertigo who presents for flu like illness. Patient states that he had COVID about 1 month ago. Does not feel he let himself heal properly, was working and went on vacation. While coming back from vacation felt as though he was getting sick. Initially with chills, then developed shakes, sweats, n/v and diarrhea. Does not usually get sick, though these symptoms are similar to the ones that he had when he had COVID last. Got the first COVID vaccine, no other ones. Did not get the flu vaccine this year. Denies fever, sob, productive cough, cp, any other symptoms. 20 pack year smoker though quit about 20 years ago. Admission Exam Per Admitting Provider Constitutional: healthy appearing and + overweight Respiratory: normal respiratory effort, lungs clear to auscultation Gastrointestinal (Abdomen): normal bowel sounds, soft, nontender, no hepatosplenomegaly Principal Diagnosis COVID 19 infection Lyme disease Discharge Exam Constitutional + well hydrated and + obese; no acute distress Eyes PERRL, conjunctivae normal, anicteric sclerae ENMT external ear and nose normal, oropharynx normal Respiratory normal respiratory effort, lungs clear to auscultation Cardiovascular Rate/Rhythm: regular rate and regular rhythm Gastrointestinal (Abdomen) normal bowel sounds, soft, nontender, no hepatosplenomegaly Musculoskeletal no cyanosis or clubbing, extremities motor strength 5/5 Neurologic PERRL, EOMI, accommodation nl, no face palsy, no dysarthria Psychiatric A+Ox3, euthymic affect Discharge Data Allergies Allergy/AdvReac Type Severity Reaction Status Date / Time pollen extracts Allergy Mild Sneezing, Verified 02/02/24 09:41 watery eyes amoxicillin AdvReac Mild GI upset Verified 02/02/24 09:41 Dust Allergy Mild Sneezing, Uncoded 02/02/24 09:41 watery eyes Consultations 07/31/24 14:17 ED Decision to Admit Stat 07/31/24 15:03 Consult Infectious Diseases Routine Ordered Studies 07/31/24 12:15 CT abd pelvis IV con only Stat Hospital Course (1) COVID: Plan #Fever #COVID 19 infection Resp PCR positive for COVID CXR did not show acute abnormalities No oxygen requirement at this time Stool PCR was negative Managed with supportive care. No need for COVID specific therapies Symptoms improved #Thrombocytopenia, Leukopenia Likely related to acute illness above Patient's lyme screen was positive IgG was positive and IgM negative ID recommends treatment Leukopenia improving Anaplasma PCR still pending Discharged on po doxycycline to complete treatment #Elevated troponin Troponin is mildly elevated and flat Likely demand ischemia EKG reviewed. incomplete RBBB. Reviewed stress Echo from 02/2024. No ischemia noted at the time Denies any chest pain, SOB Discussed with Restaurant Host/Hostess Dr Joiner today. No further cardiac eval/workup needed at this time #EMILIANO on CPAP Continue CPAP QHS Total Time Total Time Spent Total Time Spent (In Minutes): 35 Total Time Includes: Examination of the Patient, Discharge Planning, Medication Reconciliation and Communication With Other Providers Discharge Plan Discharge Items Patient Disposition: Home - Self-Care Reason For Visit: fever, covid/flu Discharge Diagnosis: COVID 19 infection Possible lyme disease Activity: Resume your previous activity Non-emergency contact: Primary Care Provider Call non-emergency contact if: you have any medication questions Follow-up/Referrals: Rubin Adames MD [Primary Care Provider] - Diet: Heart Healthy Addtl Attending Provider Instructions: Mr Patiño You presented to the hospital complaining of feeling ill, diarrhea and other symptoms. You were managed for the above diagnoses. You are being discharged on doxycycline to complete treatment. Please ensure follow up with your Primary Doctor. Your Primary Doctor can check blood work on follow up Pending Studies at Discharge: Yes (Anaplasma PCR) Stand-Alone Forms: My [facility], Smoking Cessation Medications and DC Order Prescriptions: New doxycycline hyclate 100 mg tablet 100 mg PO BID 8 Days Qty: 16 0RF ondansetron 4 mg tablet,disintegrating 4 mg PO Q8H PRN (Reason: nausea and vomiting) Qty: 20 0RF Continued zolpidem 5 mg tablet 5 mg PO HS PRN (Reason: Sleep) atorvastatin 20 mg Tablet 20 mg PO QAM Qty: 30 0RF aspirin [Rosy Low Dose Aspirin] 81 mg tablet,delayed release (DR/EC) 81 mg PO DAILY Rx Instructions: Take to prevent blood clots. Discharge Orders: Discharge Order (Routine); Ordered 08/02/24 Ordered By: Heavenly Griffin Admission Data Admit Date/Time: 07/31/24 15:14 Attending Provider: Heavenly Griffin I. Admit Provider: Neo Grullon Primary Care Provider: Rubin Adames Other Providers: Neo Grullon; Kenney Birch; Garima Garcia; Trey Navarro I.; Viral Dennison II; Katy Potter; Niranjan Hines; Dewey Jensen; Tay Samayoa Other Interventions: Discharge Summary Assessment (RN) Last Done: 08/02/24 13:07
[2024-08-02 13:08] VITALS: BP 106/72; PULSE 69
== END 2024-08-02 14:21 | disposition home or self-care (01) | DRG 178 ==
LOC: ED 11:55 → SUATTDRO 15:14 → INTOOBSV 15:14 → EDINP 15:14 → 2W 17:53